=== PATIENT | female | born 1935 | race Caucasian/White ===

== ENCOUNTER 2019-01-26 18:28 | Emergency (ER) | payer MEDICARE, BC ==
[~2019-01-26] VITALS: Ht 170.2 cm; Wt 70.8 kg
[~2019-01-26 18:28] MED LIST: ARIP15TA8 PO; ATI0.5T PO; DOCU100C40 PO; DULO30CA52 PO; DULO60CA65 PO; ESTR1.25 PO; HYDR-3686 PO; LOSA50TA64 PO; TACR100O2 TOP; TAM50T PO
[2019-01-26 19:09] LABS: BASOPHILS # (AUTO) 0.1 X10'3 (0-0.2); BASOPHILS % (AUTO) 0.9 % (0-1); EOSINOPHILS # (AUTO) 0.2 X10'3 (0-0.9); HEMATOCRIT 44.5 % (35.0-45.0); HEMOGLOBIN 14.8 g/dl (12.0-16.0); LYMPHOCYTES # (AUTO) 1.2 X10'3 (1.1-4.8); LYMPHOCYTES % (AUTO) 15.1 % (21-51); MEAN CORPUSCULAR HEMOGLOBIN 30.6 PG (27.0-31.0); MEAN CORPUSCULAR HGB CONC 33.2 g/dL (33.0-36.5); MEAN CORPUSCULAR VOLUME 92.3 FL (78-98); MEAN PLATELET VOLUME 9.5 FL (7.4-10.4); MONOCYTES # (AUTO) 0.5 X10'3 (0-0.9); MONOCYTES % (AUTO) 6.4 % (2-12); NEUTROPHILS # (AUTO) 6.3 X10'3 (1.8-7.7); NEUTROPHILS % (AUTO) 75.6 % (42-75); PLATELET COUNT 213 X10'3 (140-440); RED BLOOD COUNT 4.82 X10'6 (4.20-5.60); RED CELL DISTRIBUTION WIDTH 13.4 % (11.5-14.5); WHITE BLOOD COUNT 8.3 X10'3 (4.5-11.0)
[2019-01-26 19:21] LABS: PARTIAL THROMBOPLASTIN TIME 28 SECONDS (22-32)
[2019-01-26 19:23] LABS: ALANINE AMINOTRANSFERASE 46 U/L (12-78); ALBUMIN 3.9 G/DL (3.4-5.0); ALKALINE PHOSPHATASE 82 IU/L (46-116); ANION GAP 12 (8-16); ASPARTATE AMINO TRANSFERASE 34 U/L (10-37); BILIRUBIN,TOTAL 0.7 MG/DL (0.1-1.0); BLOOD UREA NITROGEN 11 MG/DL (7-18); BUN/CREATININE RATIO 9.7 (6.6-38.0); CALCIUM 10.5 MG/DL (8.5-10.1); CHLORIDE 101 MMOL/L (99-107); CREATININE 1.13 MG/DL (0.40-0.90); GLUCOSE 152 MG/DL (70-104); SODIUM 135 MMOL/L (135-145); TOTAL CARBON DIOXIDE 22.5 MMOL/L (24-32); TOTAL PROTEIN 7.7 G/DL (6.4-8.2); eGFR 46 ML/MIN
--- NOTE | 2019-01-26 20:00 | NUR ---
The patient is an 83 year old female who was brought to [facility] for a mental health evaluation by her daughter from [place], [place] where she lives. She has a 35 year history of depression and was fairly stable on Nardil until approximately 3 years ago she developed a rash and was taken off of it. She has been struggling with depression ever since. She is currently being treated by Dr. Andrew colin and she has had recent medication changes where all of her medications were stopped and she was put on a lower dose of Nardil. She has been having suicidal thoughts and feelings of helplessness and hopelessness 2nd to the chronic depression and not being able helped with medications. Earlier today she went into her closed garage and started her car but apparently decided to come out and contacted her daughter who then brought her here. She reports she has no motivation or will. She reports her anxiety is high. She presented as depressed, flat affect, and soft monotone speech. Pyschotic symptoms are denied and none were apparent on the assessment.
[2019-01-26 20:17] LABS: CLARITY,URINE CLEAR (Clear); COLOR,URINE YELLOW (Yellow); GLUCOSE, URINE NEGATIVE (Neg); KETONES,URINE NEGATIVE (Neg); LEUKOCYTE ESTERASE ,URINE NEGATIVE (Neg); NITRITES, URINE NEGATIVE (Neg); OCCULT BLOOD,URINE NEGATIVE (Neg); PROTEIN,URINE NEGATIVE (Neg); UROBILINOGEN,URINE 0.2 E.U/dL (0.2-1.0)
[2019-01-26 20:23] LABS: UA COLLECTION TYPE CLN CATCH MIDSTREAM
[2019-01-26] MEDS ORDERED: LOSA25TA96 PO (21:15)
[2019-01-26] MEDS ORDERED: MELA3TAB PO (21:15)
[2019-01-26] MEDS ORDERED: PALI1.5T PO (21:15)
[2019-01-26] MEDS ORDERED: METO-539 PO (21:15)
[2019-01-26] MEDS ORDERED: PRAV80TA3 PO (21:19)
[2019-01-26] MEDS ORDERED: CHOL2000 PO (21:19)
[2019-01-26] MEDS ORDERED: PHEN15TA PO (21:19)
[2019-01-26] MEDS ORDERED: LORA-269 PO (21:19)
[2019-01-26] MEDS ORDERED: LORazepam 1 MG tablet PO PRN (21:50)
[2019-01-26] MEDS ORDERED: paliperidone 1.5mg ER tablet PO SCH (21:54)
[2019-01-26] MEDS ORDERED: PHENELZINE 15 MG PO SCH (21:54)
--- NOTE | 2019-01-26 22:00 | NUR ---
Family Contact: Daughter Jud Javed [phone], orgq=[phone]. Son Puneet [phone]
[2019-01-26] MEDS: PHENELZINE 15 MG PO SCH (22:33)
--- NOTE | 2019-01-26 23:16 | NUR ---
The patient currently appears to be resting on her bed
--- NOTE | 2019-01-27 01:05 | NUR ---
The patient appears to be asleep
--- NOTE | 2019-01-27 03:05 | NUR ---
THe patient appears to be asleep
[2019-01-27 05:58] VITALS: BP 144/59
[2019-01-27] MEDS ORDERED: vitamin D (cholecalciferol) 1,000 unit tablet PO SCH (08:00)
[2019-01-27] MEDS ORDERED: metoprolol succinate 25mg (24-HOUR) SR. Tablet PO SCH (08:00)
[2019-01-27] MEDS ORDERED: losartan 50mg tablet PO SCH (08:00)
[2019-01-27] MEDS ORDERED: atorvastatin 20mg tablet PO SCH (08:00)
[2019-01-27] MEDS: PHENELZINE 15 MG PO SCH (08:18)
[2019-01-27 10:43] LABS: URINE AMPHETAMINE SCREEN NEGATIVE (Neg); URINE BARBITUATE SCREEN NEGATIVE (Neg); URINE BENZODIAZEPINES SCREEN NEGATIVE (Neg); URINE CANNABINOID SCREEN NEGATIVE (Neg); URINE COCAINE SCREEN NEGATIVE (Neg); URINE METHADONE SCREEN NEGATIVE (Neg); URINE OPIATE SCREEN NEGATIVE (Neg); URINE PHENCYCLIDINE SCREEN NEGATIVE (Neg)
--- NOTE | 2019-01-27 11:08 | NUR ---
[facility]: Pt presents as depressed with recent suicidal gesture of getting in her car and starting the ignition with the intent to kill herself. She ended up getting out of the car and letting family know. She presents as hopeless and helpless, downcast expression, speech quiet. A&Ox4. On second week of nardil 30 mg, titrating up. Sees Dr. Morales outpatient. Accepted at [facility]
[2019-01-27] MEDS ORDERED: estradiol TD (14:38)
[2019-01-27] MEDS ORDERED: Melatonin 3mg tablet PO SCH (21:00)
== END 2019-01-27 13:41 ==
LOC: ER 18:29
DX: F32.9 Major depressive disorder, single episode, unspecified (principal); Z86.73 Personal history of transient ischemic attack (TIA), and cerebral infarction without residual deficits; Z88.6 Allergy status to analgesic agent; Z88.8 Allergy status to other drugs, medicaments and biological substances; Z91.011 Allergy to milk products; Z79.899 Other long term (current) drug therapy
CPT/HCPCS: 36415; 80053; 80305; 81003; 84484; 85025; 85610; 85730; 99285

== ENCOUNTER 2019-01-27 12:17 | Inpatient (IN) | payer MEDICARE, BC ==
[~2019-01-27] VITALS: Ht 170.2 cm; Wt 80.9 kg
[~2019-01-27 12:17] MED LIST changes: -ARIP15TA8 PO; -ATI0.5T PO; +CHOL2000 PO; -DOCU100C40 PO; -DULO30CA52 PO; -DULO60CA65 PO; -ESTR1.25 PO; -HYDR-3686 PO; +LORA-269 PO; +LOSA25TA96 PO; -LOSA50TA64 PO; +MELA3TAB64 PO; +METO-539 PO; +PALI1.5T PO; +PHEN15TA PO; +PRAV80TA3 PO; -TACR100O2 TOP; -TAM50T PO
[2019-01-27] MEDS ORDERED: mag hydrox/Alum hydrox/simeth 30ml oral suspension PO PRN (12:25)
[2019-01-27] MEDS ORDERED: NICOTINE POLACRILEX 2 MG LOZENGE MM PRN (12:25)
[2019-01-27] MEDS ORDERED: tuberculin, purif. prot. deriv. 5 units/0.1ml ID ONE (12:25)
--- NOTE | 2019-01-27 13:50 | NUR ---
Admission note: [facility] at 1340. Pt signed in voluntary. Pt complains of depression, feeling hopeless and tired of feeling this way. Pt did get in her car in the garage with intent to harm herself but changed her mind and called her daughter. Pts daughter convinced her to go to ER. Pts Psychiatrist is Dr Morales. Pt has history of UTI, HTN, Arrythmias, edema, CA, Lymphectomy, knee replacement, depression. Pt cooperative with admission process. Pt oriented to the unit.
[2019-01-27] MEDS ORDERED: estradiol TD (14:38)
[2019-01-27 15:06] VITALS: BP 98/64
[2019-01-27] MEDS: LORazepam 1 MG tablet PO PRN (16:13)
--- NOTE | 2019-01-27 17:06 | NUR ---
Nursing Admit Note Legal hold: voluntary Why are they here: Pt presents as depressed with recent suicidal gesture of getting in her car and starting the ignition with the intent to kill herself. She ended up getting out of the car and letting family know. She presents as hopeless and helpless, downcast expression, speech quiet. A&Ox4. On second week of nardil 30 mg, titrating up. Sees Dr. Morales outpatient. Assessment: What happened this shift: Patient brought up to the unit at 1340 by Jadyn Ferris via wheelchair. She was taken to to the shower where skin check was completed by this RN and Viviane WAGNER. Patient has a birthmark on her left lateral torso and toe seperator on right foot. Patient is cooperative with admit process. She reports that her depression has been stable for 34 years while taking Nardil. She states that she was taken off it around 2 years ago when she started itching. New medications have not been effective in treating her symptoms. All meds were stopped aobut 2weeks ago and she has been titrating back up on nardil. She states these last few weeks have been very difficult and that she doesnt want to do anything, she quit going to christianity and is very sad. She states she went to her car in the garage and started it. She changed her mind and she went inside and told her daughter. She gets settled into the unit and reports anxiety, requests Ativan. *MRSA swab completed* *PPD place in patients RFA on 01/27/19 at 1540. Lot #[id number], Ex:12/07/20.* S/I, H/I: S/I had a plan to of carbon monoxide poisoning. A/VH: denies ADL's: independant Sleep: states that she has not been sleeping well Group attendance: N/A Were meds taken: PRN Ativan Any med S/E: None reported, none observed Mental Status Exam Appearance: well groomed, green scrubs Eye contact: direct Behavior: friendly, cooperative, anxious Speech: soft tone, normal rate/rhythm Mood: depressed Affect: flat Thought process: linear Thought Content: wellness Cognition: A/Ox3 Insight: fair Judgment: Poor to fair, sought help Interventions PRN's used: Ativan Therapeutic interventions: 1:1 therapeutic assessment, maintained safe therapeutic milieu, provided active listening with positive reinforcement, provided medication administration/education/monitoring as needed; Q15 safety checks. Restraints/seclusion/emergency medication: N/A Justification of Continued Inpatient Treatment : Therapeutic support and medication management needed to provide stabilization, and prevent decompensation decreasing risk to patient for readmittance to inpatient unit.
[2019-01-27 19:00] VITALS: BP 107/60
[2019-01-27] MEDS: [UNRECOGNIZED DRUG - OTHER] PO SCH (20:00)
[2019-01-27] MEDS: paliperidone 1.5mg ER tablet PO SCH (20:56)
[2019-01-27] MEDS: vitamin D (cholecalciferol) 1,000 unit tablet PO SCH (20:56)
[2019-01-27] MEDS: Melatonin 3mg tablet PO SCH (20:57)
[2019-01-27] MEDS: LORazepam 0.5 MG tablet PO PRN (20:57)
[2019-01-27] MEDS ORDERED: MELATONIN 40 MG PO SCH (21:00)
[2019-01-27] MEDS ORDERED: Melatonin 3mg tablet PO SCH (21:00)
--- NOTE | 2019-01-28 02:45 | NUR ---
Nursing Progress Note Legal hold: Voluntary Report received from Cam KINGSLEY Why are they here: Pt presents as depressed with recent suicidal gesture of getting in her car and starting the ignition with the intent to kill herself. She ended up getting out of the car and letting family know. She presents as hopeless and helpless, downcast expression, speech quiet. A&Ox4. On second week of Nardil 30 mg, titrating up. Sees Dr. Morales outpatient. Assessment: What happened this shift: Patient presents as depressed she is isolative, staying in her bed all shift, not interacting with anyone. She speaks very softly and when asked if she has SI she states "Not anymore." She say's she has anxiety but has a difficult time identifying what causes her anxiety. Patient is very quiet and keeps conversations to a minimal. She is complaint with HS medications. S/I, H/I: Denies current SI thoughts A/VH: Denies ADL's: Independent Sleep: See sleep assessment Group attendance: N/A Were meds taken: Yes Any med S/E: None reported, none observed Mental Status Exam Appearance: Well groomed, green scrubs Eye contact: Direct Behavior: Cooperative, anxious Speech: Soft tone, normal rate/rhythm Mood: Depressed Affect: Flat Thought process: Linear Thought Content: Getting better/help Cognition: A/Ox3 Insight: Fair Judgment: Fair Interventions PRN's used: Ativan Therapeutic interventions: 1:1 therapeutic assessment, maintained safe therapeutic milieu, provided active listening with positive reinforcement, provided medication administration/education/monitoring as needed; Q15 safety checks. Restraints/seclusion/emergency medication: N/A Justification of Continued Inpatient Treatment : Therapeutic support and medication management needed to provide stabilization, and prevent decompensation decreasing risk to patient for readmittance to inpatient unit.
[2019-01-28 08:00] VITALS: BP 138/54
[2019-01-28] MEDS: pravastatin 40mg tablet PO SCH (08:13)
[2019-01-28] MEDS: vitamin D (cholecalciferol) 1,000 unit tablet PO SCH ×2 (08:13→21:36)
[2019-01-28] MEDS: metoprolol succinate 25mg (24-HOUR) SR. Tablet PO SCH (08:18)
[2019-01-28] MEDS: losartan 50mg tablet PO SCH (08:18)
[2019-01-28] MEDS: [UNRECOGNIZED DRUG - OTHER] PO SCH ×2 (08:52→20:00)
[2019-01-28 10:33] LABS: CHOL/HDL RATIO 2.1 (0.00-4.99); CHOLESTEROL 138 MG/DL (0-200); HDL CHOLESTEROL 66 MG/DL (35-60); LDL CHOLESTEROL 62 MG/DL (50-100); TRIGLYCERIDES 97 MG/DL (20-135)
[2019-01-28] MEDS: LORazepam 1 MG tablet PO PRN (10:58)
--- NOTE | 2019-01-28 16:22 | NUR ---
Nursing Progress Note Legal hold: Voluntary Report received from KRISTY Barkley Why are they here: Pt presents as depressed with recent suicidal gesture of getting in her car and starting the ignition with the intent to kill herself. She ended up getting out of the car and letting family know. She presents as hopeless and helpless, downcast expression, speech quiet. A&Ox4. On second week of Nardil 30 mg, titrating up. Sees Dr. Morales outpatient. Assessment: What happened this shift: The patient was asleep at change of shift. She is depressed with a constricted affect. Denies having suicidal thoughts at this time. Isolates to room today and appears fatigued. She did ask to take a shower this afternoon. She is medication compliant and cooperative. S/I, H/I: Denies current SI thoughts A/VH: Denies ADL's: Independent Sleep: Napped all day Group attendance: No Were meds taken: Yes Any med S/E: None reported, none observed Mental Status Exam Appearance: Well groomed, green scrubs Eye contact: Direct Behavior: Cooperative, anxious Speech: Soft tone, normal rate/rhythm Mood: Depressed Affect: Flat Thought process: Linear Thought Content: Getting better/help Cognition: A/Ox3 Insight: Fair Judgment: Fair Interventions PRN's used: Ativan Therapeutic interventions: 1:1 therapeutic assessment, maintained safe therapeutic milieu, provided active listening with positive reinforcement, provided medication administration/education/monitoring as needed; Q15 safety checks. Restraints/seclusion/emergency medication: N/A Justification of Continued Inpatient Treatment : Therapeutic support and medication management needed to provide stabilization, and prevent decompensation decreasing risk to patient for readmittance to inpatient unit.
[2019-01-28 20:00] VITALS: BP 127/64
[2019-01-28] MEDS: Melatonin 3mg tablet PO SCH (21:37)
[2019-01-28] MEDS: paliperidone 1.5mg ER tablet PO SCH (21:37)
[2019-01-28] MEDS: gentamicin 0.1% topical ointment 15gm TP SCH (21:39)
--- NOTE | 2019-01-29 04:05 | NUR ---
Nursing Progress Note Legal hold: Voluntary Report received from KRISTY Levy Why are they here: Pt presents as depressed with recent suicidal gesture of getting in her car and starting the ignition with the intent to kill herself. She ended up getting out of the car and letting family know. She presents as hopeless and helpless, downcast expression, speech quiet. A&Ox4. On second week of Nardil 30 mg, titrating up. Sees Dr. Morales outpatient. Assessment: What happened this shift: This patient is self isolating in her room. She exhibits a flat affect. The patient states "I just feel depressed, it feels hopeless. " I have had depression all my life. Patient denies feeling suicidal. She denies hallucinations. " I just want to get out of here. This patient has been medication compliant. " The patient is reassured that she is in a safe place. S/I, H/I: Denies current SI thoughts A/VH: Denies ADL's: Independent Sleep: Napped all day Group attendance: No Were meds taken: Yes Any med S/E: None reported, none observed Mental Status Exam Appearance: Well groomed, green scrubs Eye contact: Direct Behavior: Cooperative, anxious Speech: Soft tone, normal rate/rhythm Mood: Depressed Affect: Flat Thought process: Linear Thought Content: Getting better/help Cognition: A/Ox3 Insight: Fair Judgment: Fair Interventions PRN's used: Ativan Therapeutic interventions: 1:1 therapeutic assessment, maintained safe therapeutic milieu, provided active listening with positive reinforcement, provided medication administration/education/monitoring as needed; Q15 safety checks. Restraints/seclusion/emergency medication: N/A Justification of Continued Inpatient Treatment : Therapeutic support and medication management needed to provide stabilization, and prevent decompensation decreasing risk to patient for readmittance to inpatient unit.
[2019-01-29 08:00] VITALS: BP 150/58
[2019-01-29] MEDS: [UNRECOGNIZED DRUG - OTHER] PO SCH ×2 (08:11→20:16)
[2019-01-29] MEDS: pravastatin 40mg tablet PO SCH (08:13)
[2019-01-29] MEDS: vitamin D (cholecalciferol) 1,000 unit tablet PO SCH ×2 (08:13→20:15)
[2019-01-29] MEDS: gentamicin 0.1% topical ointment 15gm TP SCH ×2 (08:14→20:41)
[2019-01-29] MEDS: Estradiol 0.025mg/day patch (1 per week) TD SCH (08:15)
--- NOTE | 2019-01-29 08:28 | NUR ---
Pt has been placed on unlisted "low tyramine" diet per psych MD ordered by KRISTY. ALBER d/w RN to change to regular per MD approval given pt has no hx of zyvox and is has not been on zyvox since admit. Addendum: 01/29/19 at [address] Amended: Links added.
[2019-01-29] MEDS: losartan 50mg tablet PO SCH (08:32)
[2019-01-29] MEDS: metoprolol succinate 25mg (24-HOUR) SR. Tablet PO SCH (08:32)
[2019-01-29] MEDS: LORazepam 0.5 MG tablet PO PRN ×2 (11:16→20:27)
--- NOTE | 2019-01-29 16:41 | NUR ---
Nursing Progress Note Legal hold: Voluntary Report received from KRISTY Barkley Why are they here: Pt presents as depressed with recent suicidal gesture of getting in her car and starting the ignition with the intent to kill herself. She ended up getting out of the car and letting family know. She presents as hopeless and helpless, downcast expression, speech quiet. A&Ox4. On second week of Nardil 30 mg, titrating up. Sees Dr. Morales outpatient. Assessment: What happened this shift: Pt awake at start of shift. She was med compliant. Education provided. Up for groups and snacks. She does not engage in conversation. She is focused on medical problems and in denial of her current level of depression. S/I, H/I: Denies current SI thoughts A/VH: Denies ADL's: Independent Sleep: Napped Group attendance: Yeas Were meds taken: Yes Any med S/E: None reported, none observed Mental Status Exam Appearance: Well groomed, green scrubs Eye contact: Direct Behavior: Cooperative, anxious Speech: Soft tone, normal rate/rhythm Mood: Depressed Affect: Flat Thought process: Linear Thought Content: groups today Cognition: A/Ox3 Insight: Fair Judgment: Fair Interventions PRN's used: Ativan Therapeutic interventions: 1:1 therapeutic assessment, maintained safe therapeutic milieu, provided active listening with positive reinforcement, provided medication administration/education/monitoring as needed; Q15 safety checks. Restraints/seclusion/emergency medication: N/A Justification of Continued Inpatient Treatment : Therapeutic support and medication management needed to provide stabilization, and prevent decompensation decreasing risk to patient for readmittance to inpatient unit.
[2019-01-29] MEDS ORDERED: LORazepam 1 MG tablet PO PRN (18:40)
[2019-01-29] MEDS ORDERED: ESTRADIOL 0.025 MG TD SCH (18:40)
[2019-01-29 19:45] VITALS: BP 115/49
[2019-01-29] MEDS ORDERED: non-formulary drug (Cholecalciferol (Vitamin D3) (Vitamin D) 1 CAP) PO SCH (20:00)
[2019-01-29] MEDS ORDERED: PHENELZINE 15 MG PO SCH (20:00)
[2019-01-29] MEDS: Melatonin 3mg tablet PO SCH (20:16)
[2019-01-29] MEDS: paliperidone 1.5mg ER tablet PO SCH (20:16)
[2019-01-29] MEDS ORDERED: paliperidone 1.5mg ER tablet PO SCH (21:00)
[2019-01-29] MEDS ORDERED: Melatonin 3mg tablet PO SCH (21:00)
--- NOTE | 2019-01-30 02:26 | NUR ---
Nursing Progress Note Legal hold: Voluntary Report received from KRISTY Levy Why are they here: Pt presents as depressed with recent suicidal gesture of getting in her car and starting the ignition with the intent to kill herself. She ended up getting out of the car and letting family know. She presents as hopeless and helpless, downcast expression, speech quiet. A&Ox4. On second week of Nardil 30 mg, titrating up. Sees Dr. Morales outpatient. Assessment: What happened this shift: Ambulating on unit at start of shift. Gait steady but shuffling. 'ent to bed early lying awake declined to come for snack. Pt admitted to S/I, H/I: Denies current SI thoughts A/VH: Denies ADL's: Independent Sleep: Napped Group attendance: Yeas Were meds taken: Yes Any med S/E: None reported, none observed Mental Status Exam Appearance: Well groomed, green scrubs Eye contact: Direct Behavior: Cooperative, anxious Speech: Soft tone, normal rate/rhythm Mood: Depressed Affect: Flat Thought process: Linear Thought Content: groups today Cognition: A/Ox3 Insight: Fair Judgment: Fair Interventions Addendum: 01/30/19 at 0239 by Isabelle Acuña RN PREVIOUS ASSESSMENT SAVED BEFORE COMPLETED Assessment: What happened this shift: Ambulating on unit at start of shift. Gait steady but shuffling. went to bed early lying awake declined to come for snack. 1:1 Pt admitted to depression and having a plan for suicide. She plans sit in car running in garage. S/I, H/I: SI with plan A/VH: Denies ADL's: Independent Sleep: Napped Group attendance: NA Were meds taken: Yes Any med S/E: None reported, none observed Mental Status Exam Appearance: Well groomed, green scrubs Eye contact: Direct Behavior: Cooperative, anxious Speech: Soft tone, pauses before answering Mood: Depressed Affect: Flat Thought process: Linear Thought Content: varies Cognition: A/Ox3 Insight: Fair Judgment: Fair Interventions PRN's used: none Therapeutic interventions: 1:1 therapeutic assessment, maintained safe therapeutic milieu, provided active listening with positive reinforcement, provided medication administration/education/monitoring as needed; Q15 safety checks. Restraints/seclusion/emergency medication: N/A Justification of Continued Inpatient Treatment : Pt is depressed with SI with a plan. Therapeutic support and medication management needed to provide stabilization, and prevent decompensation decreasing risk to patient for readmittance to inpatient unit.
[2019-01-30] MEDS: LORazepam 1 MG tablet PO PRN ×2 (03:42→16:13)
[2019-01-30 08:00] VITALS: BP 137/60
[2019-01-30] MEDS: [UNRECOGNIZED DRUG - OTHER] PO SCH ×3 (08:00→20:10)
[2019-01-30] MEDS ORDERED: losartan 25mg tablet PO SCH (08:00)
[2019-01-30] MEDS ORDERED: non-formulary drug (Pravastatin Sodium 1 TAB) PO SCH (08:00)
[2019-01-30] MEDS: metoprolol succinate 25mg (24-HOUR) SR. Tablet PO SCH (08:00)
[2019-01-30] MEDS ORDERED: TYPE IN GENERIC & BRAND NAME OF PATIENT MED STRENGTH & FORM PO SCH (08:00)
[2019-01-30] MEDS ORDERED: metoprolol succinate 25mg (24-HOUR) SR. Tablet PO SCH (08:00)
[2019-01-30] MEDS: pravastatin 40mg tablet PO SCH (08:56)
[2019-01-30] MEDS: vitamin D (cholecalciferol) 1,000 unit tablet PO SCH ×2 (08:56→20:09)
[2019-01-30] MEDS: losartan 50mg tablet PO SCH (08:58)
[2019-01-30] MEDS: gentamicin 0.1% topical ointment 15gm TP SCH ×2 (08:59→20:09)
--- NOTE | 2019-01-30 17:31 | NUR ---
Nursing Progress Note Legal hold: Voluntary Report received from Juliocesar KINGSLEY, with use of SBAR Why are they here: Pt presents as depressed with recent suicidal gesture of getting in her car and starting the ignition with the intent to kill herself. She ended up getting out of the car and letting family know. She presents as hopeless and helpless, downcast expression, speech quiet. A&Ox4. On second week of Nardil 30 mg, titrating up. Sees Dr. Morales outpatient. Assessment: What happened this shift: Elderly well kept woman sleeping flat on her back with a blanket from home covering her. Pt required multiple times to of prompts to wake her to get her up for breakfast. Assistance provided at the table with opening food packages. Diastolic hypotension in the 40's this morning; AM Metoprolol held. Current BP 131/64 HR 654. Pt encouraged to drink one class of water with each meal and to try and walk in the hallways for some exercise. Pt cooperative with both suggestions. S/I, H/I: Denies current SI thoughts A/VH: Denies ADL's: Independent Sleep: Napped Group attendance: Yes Were Meds taken: Yes Any med S/E: None reported, none observed Mental Status Exam Appearance: Well groomed, green scrubs Eye contact: Direct Behavior: Cooperative, anxious Speech: Soft tone, normal rate/rhythm Mood: Depressed Affect: Flat Thought process: Linear Thought Content: groups today Cognition: A/Ox3 Insight: Fair Judgment: Fair Interventions PRN's used: Ativan Therapeutic interventions: 1:1 therapeutic assessment, provided therapeutic communication and active listening, encouraged to go to groups, encouraged to drink water, walk in the hallways to improve diastolic hypotension, provided medication administration/education/monitoring as needed; Q15 safety checks. Restraints/seclusion/emergency medication: N/A Justification of Continued Inpatient Treatment : Therapeutic support and medication management needed to provide stabilization, and prevent decompensation decreasing risk to patient for readmittance to inpatient unit.
[2019-01-30 19:29] VITALS: BP 124/67
[2019-01-30] MEDS: paliperidone 1.5mg ER tablet PO SCH (20:09)
[2019-01-30] MEDS: LORazepam 0.5 MG tablet PO PRN (20:09)
[2019-01-30] MEDS: Melatonin 3mg tablet PO SCH (20:09)
--- NOTE | 2019-01-31 02:18 | NUR ---
RN PROGRESS NOTE: LEGAL HOLD: VOL/Long hx depression THIS SHIFT: Client was in bed, lying on her back, with eye's closed when this RN entered her room. Client appears listless. Client stated, "I have a feeling of nothingness. There's nothing." Client does not have the desire to go to group. She confirmed that she had had ECT "years ago" but did not say if it helped her depression. Client does want to continue Nardil as she feels it helps. Nardil is currently being titrated. Client was cooperative and compliant with meds. She stayed in bed during the shift. MSE: Client wears appropriate clothing and has good personal hygiene. Her mood and affect are deeply depressed. Thought is linear and connected. She is med compliant. At this time the clients depression makes it difficult for her to function. She has denied SI, but reports feelings of despair and hopelessness. Client may be at risk for another suicide gesture or attempt.
[2019-01-31 07:36] VITALS: BP 139/53
[2019-01-31] MEDS: metoprolol succinate 25mg (24-HOUR) SR. Tablet PO SCH (08:34)
[2019-01-31] MEDS: vitamin D (cholecalciferol) 1,000 unit tablet PO SCH ×2 (08:34→20:11)
[2019-01-31] MEDS: losartan 50mg tablet PO SCH (08:34)
[2019-01-31] MEDS: LORazepam 0.5 MG tablet PO PRN ×2 (08:35→13:24)
[2019-01-31] MEDS: pravastatin 40mg tablet PO SCH (08:35)
[2019-01-31] MEDS: [UNRECOGNIZED DRUG - OTHER] PO SCH ×3 (08:35→20:11)
[2019-01-31] MEDS: gentamicin 0.1% topical ointment 15gm TP SCH ×2 (08:37→20:10)
[2019-01-31] MEDS: magnesium hydroxide 30ml (MOM) UD suspension PO PRN (16:03)
--- NOTE | 2019-01-31 17:14 | NUR ---
Nursing Progress Note Legal hold: Voluntary Report received from KRISTY Mehta Why are they here: Pt presents as depressed with recent suicidal gesture of getting in her car and starting the ignition with the intent to kill herself. She ended up getting out of the car and letting family know. She presents as hopeless and helpless, downcast expression, speech quiet. A&Ox4. On second week of Nardil 30 mg, titrating up. Sees Dr. Morales outpatient. Assessment: What happened this shift: Asleep upon change of shift observation. Awakened for vital signs and to inform breakfast was here. Initially patient did not want to eat or get out of bed. Encouraged to do so times breakfast and lunch. Ate well once she was assisted to the dining room. Immediately returned to her room. Presents with symptoms of vegetative depression. States "I don't know what it's going to take to get me better." indicating she wants to live but presently lives with a foreboding of . She does not engage in conversation. Appears preoccupied with her sadness. S/I, H/I: Denies current SI thoughts A/VH: Denies ADL's: Independent Sleep: Napped Group attendance: No Were meds taken: Yes, as scheduled Any med S/E: None reported, none observed Mental Status Exam Appearance: Well groomed, green scrubs Eye contact: Direct Behavior: Cooperative, anxious Speech: Soft tone, normal rate/rhythm Mood: Depressed Affect: Flat Thought process: Linear Thought Content: groups today Cognition: A/Ox3 Insight: Fair Judgment: Fair Interventions PRN's used: Ativan 1 mg. X 1 and Milk of Magnesia X 1 Therapeutic interventions: 1:1 therapeutic assessment, maintained safe therapeutic milieu, provided active listening with positive reinforcement, provided medication administration/education/monitoring as needed; Q15 safety checks. Restraints/seclusion/emergency medication: N/A Justification of Continued Inpatient Treatment : Therapeutic support and medication management needed to provide stabilization, and prevent decompensation decreasing risk to patient for readmittance to inpatient unit.
[2019-01-31 20:00] VITALS: BP 107/74
[2019-01-31] MEDS: paliperidone 1.5mg ER tablet PO SCH (20:11)
[2019-01-31] MEDS: Melatonin 3mg tablet PO SCH (20:11)
[2019-01-31] MEDS: LORazepam 1 MG tablet PO PRN (21:08)
--- NOTE | 2019-02-01 01:11 | NUR ---
Nursing Progress Note Legal hold: Voluntary Report received from KRISTY Mehta Why are they here: Pt presents as depressed with recent suicidal gesture of getting in her car and starting the ignition with the intent to kill herself. She ended up getting out of the car and letting family know. She presents as hopeless and helpless, downcast expression, speech quiet. A&Ox4. On second week of Nardil 30 mg, titrating up. Sees Dr. Morales outpatient. Assessment: What happened this shift: pt was sleeping in bed at change of shift, 1:1 assessment completed at bedside. pt states that she hasnt felt like doing anything today and is very depressed states "I dont have any inner strength, or inner determination to do anything." pt denies s/i but then described plan for s/i of starting her car and letting in run in the garage. Pt states "I slit my wrist and I told my doctor about it but that was a long time ago. Pt states appetite is "not very good, I dont really want to eat but I eat because I have to." Pt is hopeful that medication changes will help her. States she has been attending groups Reports difficulty falling asleep. S/I, H/I: Denies current SI thoughts but has plan to leave car running in the garage while shes in the car A/VH: Denies ADL's: Independent Sleep: Napped Group attendance: no evening groups. Were meds taken: Yes Any med S/E: None reported, none observed Mental Status Exam Appearance: Well groomed, green scrubs Eye contact: Direct Behavior: Cooperative, anxious Speech: Soft tone, normal rate/rhythm Mood: Depressed Affect: Flat Thought process: Linear Thought Content: groups today Cognition: A/Ox3 Insight: Fair Judgment: Fair Interventions PRN's used: Ativan Therapeutic interventions: 1:1 therapeutic assessment, maintained safe therapeutic milieu, provided active listening with positive reinforcement, provided medication administration/education/monitoring as needed; Q15 safety checks. Restraints/seclusion/emergency medication: N/A Justification of Continued Inpatient Treatment : Therapeutic support and medication management needed to provide stabilization, and prevent decompensation decreasing risk to patient for readmittance to inpatient unit.
[2019-02-01 07:19] VITALS: BP 126/58
[2019-02-01] MEDS: pravastatin 40mg tablet PO SCH (08:41)
[2019-02-01] MEDS: vitamin D (cholecalciferol) 1,000 unit tablet PO SCH ×2 (08:41→20:58)
[2019-02-01] MEDS: [UNRECOGNIZED DRUG - OTHER] PO SCH ×3 (08:42→21:00)
[2019-02-01] MEDS: losartan 50mg tablet PO SCH (08:42)
[2019-02-01] MEDS: metoprolol succinate 25mg (24-HOUR) SR. Tablet PO SCH (08:42)
[2019-02-01] MEDS: gentamicin 0.1% topical ointment 15gm TP SCH ×2 (08:44→20:00)
[2019-02-01] MEDS: LORazepam 1 MG tablet PO PRN (12:12)
--- NOTE | 2019-02-01 15:15 | NUR ---
Initial: Pt admit to [facility] for depression. Pt currently on a "low tyramine" diet. Per MD notes pt to titrate the Phenelzine up to 45 mg daily and later 60 mg daily; a low tyramine diet is indicated during use of this medication, however noted that Phenelzine is not listed on med list. Recommend diet advancement to regular as our current regular diet plan is not high in tyramine. Pt documented with fluctuating PO intake averaging 75-100% meeting nutrient needs. LBM 01/31. No edema or wounds. No nutrition diagnosis at this time. Will continue to follow. Recommendations: 1) Advance to regular diet 2) Routine bowel care 3) Wt per rx Addendum: 02/01/19 at [address] Amended: Links added.
--- NOTE | 2019-02-01 18:03 | NUR ---
Nursing Progress Note Legal hold: Voluntary Report received from KRISTY Mehta Why are they here: Pt presents as depressed with recent suicidal gesture of getting in her car and starting the ignition with the intent to kill herself. She ended up getting out of the car and letting family know. She presents as hopeless and helpless, downcast expression, speech quiet. A&Ox4. On second week of Nardil 30 mg, titrating up. Sees Dr. Morales outpatient. Assessment: What happened this shift: pt was sleeping in bed at change of shift. Pt reports feelings of depression today and appearance is congruent with her mood. Pt denies SI but does state, I don;t want to be here, I dont want to be anywhere. Also reports feelings of emptiness. Pt is hopeful that medication changes will help her. States she has been attending groups, today she left group abruptly after feeling overwhelmed with emotion. Pt reports needing PRN Ativan and one was administered. Pt reports having continuous negative feelings about herself and also reports she feels guilty about being unfaithful to my many years ago. She went on to report that she only emotionally cheated, we didnt have sex. Reports her was aware and forgave her and she believes God has forgiven me, I just havent been able to forgive myself. Reports she will try and attend afternoon group. S/I, H/I: Denies current SI but I dont want to be here, I dont want to be anywhere. A/VH: Denies ADL's: Independent Sleep: 7.25 NOC Group attendance: morning-briefly before walking out upset Were meds taken: Yes Any med S/E: None reported, none observed Mental Status Exam Appearance: Well groomed, green scrubs Eye contact: Direct Behavior: Cooperative, anxious after group Speech: Soft tone, normal rate/rhythm Mood: Depressed Affect: Flat Thought process: Linear Thought Content: focused on her low self worth and history with Cognition: A/Ox4 Insight: Fair Judgment: Fair Interventions PRN's used: Ativan X1 Therapeutic interventions: 1:1 therapeutic assessment, maintained safe therapeutic milieu, provided active listening with positive reinforcement, provided medication administration/education/monitoring as needed; Q15 safety checks. Restraints/seclusion/emergency medication: N/A Justification of Continued Inpatient Treatment : Therapeutic support and medication management needed to provide stabilization, and prevent decompensation decreasing risk to patient for readmittance to inpatient unit.
[2019-02-01 20:00] VITALS: BP 142/60
[2019-02-01] MEDS: Melatonin 3mg tablet PO SCH (20:59)
[2019-02-01] MEDS: paliperidone 1.5mg ER tablet PO SCH (20:59)
[2019-02-01] MEDS: LORazepam 0.5 MG tablet PO PRN (21:11)
--- NOTE | 2019-02-01 23:51 | NUR ---
Nursing Progress Note Legal hold: Voluntary Report received from KRISTY Gandara Why are they here: Pt presents as depressed with recent suicidal gesture of getting in her car and starting the ignition with the intent to kill herself. She ended up getting out of the car and letting family know. She presents as hopeless and helpless, downcast expression, speech quiet. A&Ox4. On second week of Nardil 30 mg, titrating up. Sees Dr. Morales outpatient. Assessment: What happened this shift: Patient is in bed at change of shift. She is isolative and does not leave her room or bed this evening except to use the restroom. She agrees to a 1:1 assessment at her bedside. She denies SI/HI, AH/VH. She rates her depression as a 10/10, and says she is still experiencing anxiety. Patient is not very talkative this evening she has hearing aides but would not put them in for her assessment. She speaks loudly and repeatedly stated she was having a difficult time hearing. She did talk to her daughter this evening which seemed to have brighten her mood. Patient is complaint with her HS medications. S/I, H/I: Denies current SI A/VH: Denies ADL's: Independent Sleep: See sleep assessment Group attendance: No groups this evening Were meds taken: Yes Any med S/E: None reported, none observed Mental Status Exam Appearance: Well groomed, green scrubs Eye contact: Direct Behavior: Cooperative, anxious Speech: Soft tone, loud while not wearing hearing aides, normal rate/rhythm Mood: Depressed Affect: Flat Thought process: Linear Thought Content: Focused on continually feeling depressed Cognition: A/Ox4 Insight: Fair Judgment: Fair Interventions PRN's used: Ativan X1 Therapeutic interventions: 1:1 therapeutic assessment, maintained safe therapeutic milieu, provided active listening with positive reinforcement, provided medication administration/education/monitoring as needed; Q15 safety checks. Restraints/seclusion/emergency medication: N/A Justification of Continued Inpatient Treatment : Therapeutic support and medication management needed to provide stabilization, and prevent decompensation decreasing risk to patient for readmittance to inpatient unit.
[2019-02-02 07:44] VITALS: BP 130/88
[2019-02-02 07:47] VITALS: BP 131/58
[2019-02-02] MEDS: vitamin D (cholecalciferol) 1,000 unit tablet PO SCH ×2 (08:45→20:46)
[2019-02-02] MEDS: metoprolol succinate 25mg (24-HOUR) SR. Tablet PO SCH (08:45)
[2019-02-02] MEDS: losartan 50mg tablet PO SCH (08:45)
[2019-02-02] MEDS: pravastatin 40mg tablet PO SCH (08:45)
--- NOTE | 2019-02-02 08:45 | NUR ---
Nursing 1:1 Documentation Patient encouraged out of bed this AM to attend breakfast. After eating well for this meal, patient came to staff for morning medications. Sat in a chair in the community room, slouched in her chair, and while waiting for her meds to be prepared, heard to make sounds out of her mouth similar to growling. When asked about the sounds she was making patient responded "I feel as if I'm going to explode." Patient unable to elaborate further, staring at staff but offering no comment. When asked what she was feeling at that moment pt replied "I feel empty." Significant tremors noted in her hands and feet, with additional head tremor, not as pronounced. Patient asked for and given Ativan 1 mg. at this time. 1100 Patient out of bed and asking to shower. Declined to attend group. Assisted with a shower and shampoo without event.
[2019-02-02] MEDS: [UNRECOGNIZED DRUG - OTHER] PO SCH ×3 (08:46→20:43)
[2019-02-02] MEDS: gentamicin 0.1% topical ointment 15gm TP SCH ×2 (08:46→20:47)
[2019-02-02] MEDS: LORazepam 1 MG tablet PO PRN (08:52)
--- NOTE | 2019-02-02 17:06 | NUR ---
Legal hold: Voluntary Report received from KRISTY Mehta Why are they here: Pt presents as depressed with recent suicidal gesture of getting in her car and starting the ignition with the intent to kill herself. She ended up getting out of the car and letting family know. She presents as hopeless and helpless, downcast expression, speech quiet. A&Ox4. On second week of Nardil 30 mg, titrating up. Sees Dr. Morales outpatient. Assessment: What happened this shift: Please see note written earlier this shift. Patient spent the greater part of the shift in bed, stating "I just want to sleep. I don't know what else to do with myself." Unable to process he rlife events at this time. S/I, H/I: Denies current SI A/VH: Denies ADL's: Independent Sleep: See sleep assessment Group attendance: No groups this evening Were meds taken: Yes Any med S/E: None reported, none observed Mental Status Exam Appearance: Well groomed, green scrubs Eye contact: Direct Behavior: Cooperative, anxious Speech: Soft tone, loud while not wearing hearing aides, normal rate/rhythm Mood: Depressed Affect: Flat Thought process: Linear Thought Content: Focused on continually feeling depressed Cognition: A/Ox4 Insight: Fair Judgment: Fair Interventions PRN's used: Ativan X1 Therapeutic interventions: 1:1 therapeutic assessment, maintained safe therapeutic milieu, provided active listening with positive reinforcement, provided medication administration/education/monitoring as needed; Q15 safety checks. Restraints/seclusion/emergency medication: N/A Justification of Continued Inpatient Treatment : Therapeutic support and medication management needed to provide stabilization, and prevent decompensation decreasing risk to patient for readmittance to inpatient unit.
[2019-02-02 19:56] VITALS: BP 131/80
[2019-02-02] MEDS: paliperidone 1.5mg ER tablet PO SCH (20:44)
[2019-02-02] MEDS: Melatonin 3mg tablet PO SCH (20:44)
[2019-02-02] MEDS: LORazepam 0.5 MG tablet PO PRN (20:45)
--- NOTE | 2019-02-02 23:33 | NUR ---
Nursing Progress Note Legal hold: Voluntary Report received from KRISTY Bosch Why are they here: Pt presents as depressed with recent suicidal gesture of getting in her car and starting the ignition with the intent to kill herself. She ended up getting out of the car and letting family know. She presents as hopeless and helpless, downcast expression, speech quiet. A&Ox4. On second week of Nardil 30 mg, titrating up. Sees Dr. Morales outpatient. Assessment: What happened this shift: Patient is in bed at change of shift. She is isolative and does not leave her room or bed this evening. She sleeps most of the shift. When awoken for a 1:1 assessment patient reports that it was "not a good day." She say's she is "hot", and "I don't feel good." Temperature is taken and is 97.2, it is noted that patient has not drank any of her water today. She is encouraged to drink fluids at this time, to remain hydrated as this could be why she is not feeling well. Patient reports that she finds no enjoyment in anything. She say's "I eat, but I don't enjoy it." She reports her depression is a 10/10 and has not improved. Patient is compliant with HS medications. S/I, H/I: Denies current SI A/VH: Denies ADL's: Independent Sleep: See sleep assessment Group attendance: No groups this evening Were meds taken: Yes Any med S/E: None reported, none observed Mental Status Exam Appearance: Disheveled, hair unkempt Eye contact: Direct Behavior: Cooperative, anxious Speech: Soft tone, loud while not wearing hearing aides, normal rate/rhythm Mood: Depressed Affect: Flat Thought process: Linear Thought Content: Focused on continually feeling depressed Cognition: A/Ox4 Insight: Fair Judgment: Fair Interventions PRN's used: Ativan X1 Therapeutic interventions: 1:1 therapeutic assessment, maintained safe therapeutic milieu, provided active listening with positive reinforcement, provided medication administration/education/monitoring as needed; Q15 safety checks. Restraints/seclusion/emergency medication: N/A Justification of Continued Inpatient Treatment : Therapeutic support and medication management needed to provide stabilization, and prevent decompensation decreasing risk to patient for readmittance to inpatient unit.
[2019-02-03] MEDS: metoprolol succinate 25mg (24-HOUR) SR. Tablet PO SCH (07:45)
[2019-02-03] MEDS: losartan 50mg tablet PO SCH (07:45)
[2019-02-03] MEDS: vitamin D (cholecalciferol) 1,000 unit tablet PO SCH ×2 (07:45→21:10)
[2019-02-03] MEDS: [UNRECOGNIZED DRUG - OTHER] PO SCH ×3 (07:46→21:10)
[2019-02-03] MEDS: gentamicin 0.1% topical ointment 15gm TP SCH ×2 (07:46→21:10)
[2019-02-03] MEDS: pravastatin 40mg tablet PO SCH (07:49)
[2019-02-03 08:00] VITALS: BP 118/52
[2019-02-03] MEDS: LORazepam 1 MG tablet PO PRN ×2 (10:00→17:15)
--- NOTE | 2019-02-03 17:39 | NUR ---
Nursing Progress Note Legal hold: Voluntary Report received from Araseli Chu RN Why are they here: Pt presents as depressed with recent suicidal gesture of getting in her car and starting the ignition with the intent to kill herself. She ended up getting out of the car and letting family know. She presents as hopeless and helpless, downcast expression, speech quiet. A&Ox4. On second week of Nardil 30 mg, titrating up. Sees Dr. Morales outpatient. Assessment: What happened this shift: Patient is in bed at change of shift. She is isolative and does not leave her room or bed other than to eat. She sleeps most of the shift. She reports not feeling well today. She has a slow reaction time to questions asked. Patient continues to report that she finds no enjoyment in anything. She reports her depression is a 10/10 and has not improved. Patient is compliant with all AM medications. Dr. Longoria plans on increasing her Nardil. RN assisted pt with getting new batteries in her hearing aides. In late afternoon pt was heard from down the hallway wailing on her bed stating, "Im falling apart." Patient was alone and unprovoked. Pt was amendable to taking Ativan. RN also educated her on breathing exercises as well as body awareness exercises. She also calmed down when offered a cup of chamomile tea. S/I, H/I: Denies current SI A/VH: Denies ADL's: Independent Sleep: See sleep assessment Group attendance: No Were meds taken: Yes Any med S/E: Some fine leg tremors observed Mental Status Exam Appearance: Hair unkempt Eye contact: Direct Behavior: Cooperative, anxious Speech: Soft tone, slow response time Mood: Depressed Affect: Flat Thought process: Linear Thought Content: Focused on continually feeling depressed Cognition: A/Ox4 Insight: Fair Judgment: Fair Interventions PRN's used: Ativan X2 Therapeutic interventions: 1:1 therapeutic assessment, maintained safe therapeutic milieu, provided active listening with positive reinforcement, provided medication administration/education/monitoring as needed; Q15 safety checks. Restraints/seclusion/emergency medication: N/A Justification of Continued Inpatient Treatment : Therapeutic support and medication management needed to provide stabilization, and prevent decompensation decreasing risk to patient for readmittance to inpatient unit.
[2019-02-03 20:00] VITALS: BP 120/59
[2019-02-03] MEDS: Melatonin 3mg tablet PO SCH (21:10)
[2019-02-03] MEDS: paliperidone 1.5mg ER tablet PO SCH (21:10)
--- NOTE | 2019-02-04 00:16 | NUR ---
Nursing Progress Note: Legal hold: Voluntary Client on voluntary DTS Report received from nurse with use of SBAR: KRISTY Bosch Why are they here: Pt presents as depressed with recent suicidal gesture of getting in her car and starting the ignition with the intent to kill herself. She ended up getting out of the car and letting family know and they then brought her to the ER. She presents as hopeless and helpless, downcast expression, speech quiet, and has hx of depression with two previous suicide attempts. Pt. is and lives alone, however receives support from her three children. She is a patient of Dr. Reed. Assessment What has happened this shift: Pt. presents as isolative and fatigued and remains in bed throughout the shift. This report writer awoke pt. to complete 1:1 at bedside, she is cooperative, however guarded and withdrawn, affect is flat, and speech is soft, inaudible at times with a delay in response time. Pt. is A&O X3, not to place, reports she is at [facility], however is able to be successfully reoriented by this report writer. She continues to endorse depression with passive S/I, no current plan at this time, and no s/s of self-harm behaviors this shift. Pt. reports she does not attend groups, when questioned by this report writer regarding why, she states, "I just don't want to be here." Pt. requests PRN Ativan at reporting that is helps her sleep, however denies anxiety at this time. This report writer administered scheduled Melatonin and educated pt. that Ativan is used for anxiety, but to notify staff if she is unable to sleep, pt. voiced understanding. Will continue to monitor. S/I, H/I: Passive S/I, no current plan at this time A/VH: N/A Sleep: Pt. presents as fatigued, sleeping throughout the shift ADL's: Pt. remains in bed and requires prompting and direction from staff in order to complete ADLs Group attendance: Pt. reports she does not attend groups, when questioned by this report writer regarding why, she states, "I just don't want to be here." Were meds taken: Yes Any med S/E: None Mental Status Exam Appearance: Neat and appropriately dressed Eye contact: Poor to fair Behavior: Cooperative, however guarded and withdrawn, Speech: Speech is soft, inaudible at times with a delay in response time. Mood: Depressed Affect: Flat Thought process: Poverty of thought and blocking Thought Content: Ongoing preoccupation with depressive thoughts and hopelessness Cognition: Pt. is A&O X3, not to place, reports she is at [facility], however is able to be successfully reoriented by this report writer. Insight: Poor Judgment: Poor Interventions PRN's used: None Therapeutic interventions: Attempted to establish rapport, ensured contract for safety, maintained a safe and supportive environment, provided reorientation to reality as needed, monitored behaviors and need for intervention, and maintained Q 15 min safety checks. Restraints/seclusion/emergency medication: N/A Justification of Continued Inpatient Treatment: Pt. requires interruption of current crisis, medication adjustments, and a safe and supportive environment.
[2019-02-04] MEDS: LORazepam 0.5 MG tablet PO PRN (03:58)
[2019-02-04 07:31] VITALS: BP 128/54
[2019-02-04] MEDS: pravastatin 40mg tablet PO SCH (07:56)
[2019-02-04] MEDS: losartan 50mg tablet PO SCH (07:56)
[2019-02-04] MEDS: vitamin D (cholecalciferol) 1,000 unit tablet PO SCH ×2 (07:56→20:46)
[2019-02-04] MEDS: [UNRECOGNIZED DRUG - OTHER] PO SCH ×3 (07:57→17:58)
[2019-02-04] MEDS: metoprolol succinate 25mg (24-HOUR) SR. Tablet PO SCH (07:57)
[2019-02-04] MEDS: gentamicin 0.1% topical ointment 15gm TP SCH ×2 (08:00→20:47)
[2019-02-04] MEDS: LORazepam 1 MG tablet PO PRN (12:20)
--- NOTE | 2019-02-04 13:32 | NUR ---
Nursing Progress Note Legal hold: Voluntary Report received from Araseli Chu RN Why are they here: Pt presents as depressed with recent suicidal gesture of getting in her car and starting the ignition with the intent to kill herself. She ended up getting out of the car and letting family know. She presents as hopeless and helpless, downcast expression, speech quiet. A&Ox4. On second week of Nardil 30 mg, titrating up. Sees Dr. Morales outpatient. Assessment: What happened this shift: Client laying in bed until medication and breakfast time. Pt. is medication compliant, attends all meals. Patient initially declined 1:1, but then apologized for being rude. Pt. states that she feels hopeless, and that she is not improving. Pt. asked for Ativan and was visibly shaking from anxiety. She naps most of the day, and when she does say a few words she will just stop talking and lay back down. S/I, H/I: Denies current SI A/VH: Denies ADL's: Independent Sleep: 7.5 hrs. at night, napped most of day. Group attendance: No Were meds taken: Yes Any med S/E: Some fine leg tremors observed Mental Status Exam Appearance: Hair unkempt Eye contact: Direct Behavior: Cooperative, anxious Speech: Soft tone, slow response time Mood: Depressed Affect: Flat Thought process: Linear Thought Content: Focused on hopelessness and depresion. Cognition: A/Ox4 Insight: Fair Judgment: Fair Interventions PRN's used: Ativan Therapeutic interventions: 1:1 therapeutic assessment, maintained safe therapeutic milieu, provided active listening with positive reinforcement, provided medication administration/education/monitoring as needed; Q15 safety checks. Restraints/seclusion/emergency medication: N/A Justification of Continued Inpatient Treatment : Therapeutic support and medication management needed to provide stabilization, and prevent decompensation decreasing risk to patient for readmittance to inpatient unit.
[2019-02-04] MEDS: [UNRECOGNIZED DRUG - OTHER] PO SCH ×2 (17:59→21:00)
[2019-02-04 20:00] VITALS: BP 120/70
[2019-02-04] MEDS: paliperidone 1.5mg ER tablet PO SCH (20:46)
[2019-02-04] MEDS: Melatonin 3mg tablet PO SCH (20:46)
--- NOTE | 2019-02-05 01:26 | NUR ---
Nursing Progress Note: Legal hold: Voluntary Client on voluntary DTS Report received from nurse with use of SBAR: KRISTY Bosch Why are they here: Pt presents as depressed with recent suicidal gesture of getting in her car and starting the ignition with the intent to kill herself. She ended up getting out of the car and letting family know and they then brought her to the ER. She presents as hopeless and helpless, downcast expression, speech quiet, and has hx of depression with two previous suicide attempts. Pt. is and lives alone, however receives support from her three children. She is a patient of Dr. Reed. Assessment What has happened this shift: Pt. sleeping in bed at the beginning of the shift and remains here throughout the shift. This ad writer awoke pt. and encouraged her to attend HS snack, she initially refused, however later got up and did attend. This ad writer provided positive encouragement to pt. regarding her attendance, and she smiled and appeared pleased. 1:1 completed at bedside, pt. is cooperative, however remains guarded and withdrawn, affect is flat. She continues to endorse depression, states, "I feel depressed, I just feel nothing." When this ad writer questioned pt. in regard to S/I she did not answer. Pt. again requests PRN Ativan at HS reporting that is helps her sleep, however denies anxiety at this time. This ad writer encouraged pt to notify staff if unable to sleep and Ativan will be administered, pt. voiced understanding. Will continue to monitor. HS dose of Nardil unavailable to administer, per AM shift, medication may be available tomorrow, Dr. Longoria is aware and pt. reports understanding. S/I, H/I: Passive S/I, no current plan at this time A/VH: N/A Sleep: Pt. presents as fatigued, sleeping on and off throughout the shift ADL's: Pt. requires prompting and encouragement rom staff in order to complete ADLs Group attendance: Pt. attended HS snack with encouragement Were meds taken: Yes (Nardil unavailable) Any med S/E: None Mental Status Exam Appearance: Neat and appropriately dressed Eye contact: Poor to fair Behavior: Cooperative, however guarded and withdrawn, and fatigued Speech: Speech is soft, inaudible at times with a delay in response time. Mood: Depressed Affect: Flat Thought process: Poverty of thought and blocking Thought Content: Ongoing preoccupation with depressive thoughts and hopelessness Cognition: Pt. is A&O Insight: Poor Judgment: Poor Interventions PRN's used: None Therapeutic interventions: Maintained a safe and therapeutic environment, ensured contract for safety, provided encouragement and positive reenforcement, provided reorientation to reality as needed, monitored behaviors and need for intervention, and maintained Q 15 min safety checks. Restraints/seclusion/emergency medication: N/A Justification of Continued Inpatient Treatment: Pt. requires interruption of current crisis, medication adjustments, and a safe and supportive environment.
[2019-02-05 07:54] VITALS: BP 125/66
[2019-02-05] MEDS: losartan 50mg tablet PO SCH (07:54)
[2019-02-05] MEDS: metoprolol succinate 25mg (24-HOUR) SR. Tablet PO SCH (07:54)
[2019-02-05] MEDS: vitamin D (cholecalciferol) 1,000 unit tablet PO SCH ×2 (07:54→20:42)
[2019-02-05] MEDS: pravastatin 40mg tablet PO SCH (07:54)
[2019-02-05] MEDS: Estradiol 0.025mg/day patch (1 per week) TD SCH (07:57)
[2019-02-05] MEDS: [UNRECOGNIZED DRUG - OTHER] PO SCH ×4 (08:00→20:58)
[2019-02-05] MEDS: gentamicin 0.1% topical ointment 15gm TP SCH ×2 (08:03→20:43)
--- NOTE | 2019-02-05 10:01 | NUR ---
Morning Nursing Progress Note: Legal hold: Voluntary Client on voluntary DTS Report received from nurse with use of SBAR: Araseli Chu RN Why are they here: Pt presents as depressed with recent suicidal gesture of getting in her car and starting the ignition with the intent to kill herself. She ended up getting out of the car and letting family know and they then brought her to the ER. She presents as hopeless and helpless, downcast expression, speech quiet, and has hx of depression with two previous suicide attempts. Pt. is and lives alone, however receives support from her three children. She is a patient of Dr. Reed. Assessment What has happened this shift: Patient is observed sleeping at change of shift. She is awoken just prior to breakfast. She states that she feels like she slept well last night. She states that she doesnt think the Nardil is doing any good and I dont feel right. She reports increased depression. She is out of Nardil, report received that medication may be available on Wednesday. She takes her medications without issue and then joins others for breakfast. After breakfast she promptly returns to her room. She complains of increased anxiety while laying in bed with her feet elevated. Report given to Dustin WAGNER
--- NOTE | 2019-02-05 10:08 | NUR ---
Nursing Progress Note: Legal hold: Voluntary Client on voluntary DTS Report received from material handler 1st shift RN Why are they here: Pt presents as depressed with recent suicidal gesture of getting in her car and starting the ignition with the intent to kill herself. She ended up getting out of the car and letting family know and they then brought her to the ER. She presents as hopeless and helpless, downcast expression, speech quiet, and has hx of depression with two previous suicide attempts. Pt. is and lives alone, however receives support from her three children. She is a patient of Dr. Reed. Assessment What has happened this shift: This underwriter assumed care of this client at 1000 hours 05 February 2019. Client was in her bed when interviewed. She has no somatic complaints at this time and denied need for assistance. Client states, " I feel like I am in a box and cannot get out". Client was reassured that she was in a safe place and qwe would continue to check with her at frequent intervals. S/I, H/I: Passive S/I, no current plan at this time A/VH: N/A Sleep: Pt. presents as fatigued, sleeping on and off throughout the shift ADL's: Pt. requires prompting and encouragement rom staff in order to complete ADLs Group attendance: Were meds taken: Yes (Nardil unavailable) Any med S/E: None Mental Status Exam Appearance: Neat and appropriately dressed Eye contact: Poor Behavior: Cooperative, however guarded and withdrawn, and fatigued Speech: Speech is soft, inaudible at times with a delay in response time. Mood: Depressed Affect: Flat Thought process: Poverty of thought and blocking Thought Content: Ongoing preoccupation with depressive thoughts and hopelessness Cognition: Pt. is A&O Insight: Poor Judgment: Poor Interventions PRN's used: None Therapeutic interventions: Maintained a safe and therapeutic environment, ensured contract for safety, provided encouragement and positive reenforcement, provided reorientation to reality as needed, monitored behaviors and need for intervention, and maintained Q 15 min safety checks. Restraints/seclusion/emergency medication: N/A Justification of Continued Inpatient Treatment: Pt. requires interruption of current crisis, medication adjustments, and a safe and supportive environment.
[2019-02-05] MEDS: LORazepam 0.5 MG tablet PO PRN (10:22)
--- NOTE | 2019-02-05 12:19 | NUR ---
Nursing Progress Note: Legal hold: Voluntary Client on voluntary DTS Report received from nurse with use of SBAR Why are they here: Pt presents as depressed with recent suicidal gesture of getting in her car and starting the ignition with the intent to kill herself. She ended up getting out of the car and letting family know and they then brought her to the ER. She presents as hopeless and helpless, downcast expression, speech quiet, and has hx of depression with two previous suicide attempts. Pt. is and lives alone, however receives support from her three children. She is a patient of Dr. Reed. Assessment What has happened this shift: Assumed care of client about 1000 hours this shift. Client was interviewed by typewriter ribbon winder and during assessment, asked for Ativan which was given with good effect. Client participated in morning Group and interacted well with her peers. She denies current S/I and stated she will seek out staff if she starts to have thoughts of self harm. S/I, H/I: Passive S/I, no current plan at this time A/VH: N/A Sleep: Pt. presents as fatigued, sleeping on and off throughout the shift ADL's: Pt. requires prompting and encouragement rom staff in order to complete ADLs Group attendance: Pt. attended Were meds taken: Yes (Nardil unavailable) Any med S/E: None Mental Status Exam Appearance: Neat and appropriately dressed Eye contact: Poor to fair Behavior: Cooperative, however guarded and withdrawn, and fatigued Speech: Speech is soft, inaudible at times with a delay in response time. Mood: Depressed Affect: Flat Thought process: Poverty of thought and blocking Thought Content: Ongoing preoccupation with depressive thoughts and hopelessness Cognition: Pt. is A&O Insight: Poor Judgment: Poor Interventions PRN's used: Ativan x 1 this shift. Therapeutic interventions: Maintained a safe and therapeutic environment, ensured contract for safety, provided encouragement and positive reenforcement, provided reorientation to reality as needed, monitored behaviors and need for intervention, and maintained Q 15 min safety checks. Restraints/seclusion/emergency medication: N/A Justification of Continued Inpatient Treatment: Pt. requires interruption of current crisis, medication adjustments, and a safe and supportive environment.
--- NOTE | 2019-02-05 18:43 | NUR ---
Patient in room MH 324. I have received report from KRISTY Bosch and had the opportunity to ask questions and assume patient care.
[2019-02-05 19:45] VITALS: BP 117/52
[2019-02-05] MEDS: Melatonin 3mg tablet PO SCH (20:42)
[2019-02-05] MEDS: paliperidone 1.5mg ER tablet PO SCH (20:42)
[2019-02-05] MEDS: docusate sod 100mg capsule PO SCH (20:43)
[2019-02-05] MEDS: psyllium seed 3.4 gm packet PO SCH (20:43)
[2019-02-05] MEDS: LORazepam 1 MG tablet PO PRN (21:45)
--- NOTE | 2019-02-06 01:25 | NUR ---
Nursing Progress Note: Legal hold: Voluntary Client on voluntary DTS Report received from nurse with use of SBAR Why are they here: Pt presents as depressed with recent suicidal gesture of getting in her car and starting the ignition with the intent to kill herself. She ended up getting out of the car and letting family know and they then brought her to the ER. She presents as hopeless and helpless, downcast expression, speech quiet, and has hx of depression with two previous suicide attempts. Pt. is and lives alone, however receives support from her three children. She is a patient of Dr. Reed. Assessment What has happened this shift: Pt lying in bed from start of shift. Does not show any desire to socialize or retreat from bed. Fixated on getting Nardil and the pharmacy was contacted in [facility]. Advised medication will be delivered by daughter next day. Pt was worried because daughter had to work and she was concerned she would not receive her medications. Denies depression at this time. Fatigueld. S/I, H/I: Denies A/VH: N/A Sleep: Pt. Sleeping on and off throughout shift. ADL's: Pt. requires prompting and encouragement rom staff in order to complete ADLs Group attendance: N/A Were meds taken: Yes (Nardil unavailable) Any med S/E: None Mental Status Exam Appearance: Neat and appropriately dressed Eye contact: Poor to fair Behavior: Cooperative, however guarded and withdrawn, and fatigued Speech: Speech is soft, inaudible at times with a delay in response time. Mood: Depressed Affect: Flat Thought process: Poverty of thought and blocking Thought Content: Nardil medication unavailability Cognition: Pt. is A&O Insight: Poor Judgment: Poor Interventions PRN's used: Ativan x 1 this shift. Therapeutic interventions: Maintained a safe and therapeutic environment, ensured contract for safety, provided encouragement and positive reenforcement, provided reorientation to reality as needed, monitored behaviors and need for intervention, and maintained Q 15 min safety checks. Restraints/seclusion/emergency medication: N/A Justification of Continued Inpatient Treatment: Pt. requires interruption of current crisis, medication adjustments, and a safe and supportive environment.
[2019-02-06] MEDS: [UNRECOGNIZED DRUG - OTHER] PO SCH ×4 (08:00→20:51)
[2019-02-06] MEDS: losartan 50mg tablet PO SCH (08:26)
[2019-02-06] MEDS: vitamin D (cholecalciferol) 1,000 unit tablet PO SCH ×2 (08:27→20:12)
[2019-02-06] MEDS: pravastatin 40mg tablet PO SCH (08:28)
[2019-02-06] MEDS: gentamicin 0.1% topical ointment 15gm TP SCH ×2 (08:29→20:12)
[2019-02-06] MEDS: metoprolol succinate 25mg (24-HOUR) SR. Tablet PO SCH (08:29)
[2019-02-06] MEDS: docusate sod 100mg capsule PO SCH ×2 (08:29→20:12)
[2019-02-06 08:30] VITALS: BP 135/53
[2019-02-06] MEDS: LORazepam 0.5 MG tablet PO PRN (09:50)
--- NOTE | 2019-02-06 12:47 | NUR ---
Initial: Pt admit to [facility] for depression. Pt currently on a "low tyramine" Reassessment: Patient is eating well, 75-100% PO intake. Meeting nutrition needs. LBM 02/06, no GI symptoms. Christian 21, skin intact. Will continue to follow. Recommendations: 1) Advance to regular diet 2) Routine bowel care 3) Wt per rx Addendum: 02/06/19 at [address] Amended: Links added.
--- NOTE | 2019-02-06 15:48 | NUR ---
Nursing Progress Note Legal hold: Voluntary Report received from Araseli Chu RN Why are they here: Pt presents as depressed with recent suicidal gesture of getting in her car and starting the ignition with the intent to kill herself. She ended up getting out of the car and letting family know. She presents as hopeless and helpless, downcast expression, speech quiet. A&Ox4. On second week of Nardil 30 mg, titrating up. Sees Dr. Morales outpatient. Assessment: What happened this shift: Pt. laying in bed until medications and breakfast. Pt. cooperative, but fatigued. Reports that she is still suicidal with a plan to go into her car, start it and drift off to sleep (though she states that she does not want this). She reports that her daughter and son do not know what to do with her anymore. She says she just lays around the house without any motivation to do anything. 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 Asking if her daughter brought in her med, still awaiting. Patient reports that she goes into group with her hearing aides turned all the way up and she still cannot hear, so she leaves group. Reported to Patsy, who will tell other SW's. S/I, H/I: Active with plan as above. A/VH: Denies ADL's: Independent with prompting. Sleep: 9.0 hrs. at night, napped most of day. Group attendance: Yes. Were meds taken: Yes Any med S/E: None noted. Mental Status Exam Appearance: Hair unkempt, dressed appropriately Eye contact: Direct Behavior: Cooperative, anxious Speech: Soft tone, slow response time Mood: Depressed Affect: Flat Thought process: Linear Thought Content: Focused on hopelessness and depression. Cognition: A/Ox4 Insight: Fair. Judgment: Poor. Interventions PRN's used: Ativan Therapeutic interventions: 1:1 therapeutic assessment, maintained safe therapeutic milieu, provided active listening with positive reinforcement, provided medication administration/education/monitoring as needed; Q15 safety checks. Restraints/seclusion/emergency medication: N/A Justification of Continued Inpatient Treatment : Therapeutic support and medication management needed to provide stabilization, and prevent decompensation decreasing risk to patient for readmittance to inpatient unit.
[2019-02-06 19:55] VITALS: BP 124/60
[2019-02-06] MEDS: LORazepam 1 MG tablet PO PRN (20:12)
[2019-02-06] MEDS: Melatonin 3mg tablet PO SCH (20:12)
[2019-02-06] MEDS: paliperidone 1.5mg ER tablet PO SCH (20:12)
[2019-02-06] MEDS: psyllium seed 3.4 gm packet PO SCH (20:17)
--- NOTE | 2019-02-06 22:03 | NUR ---
Nursing Progress Note Legal hold: Voluntary Report received from RKISTY Bosch Why are they here: Pt presents as depressed with recent suicidal gesture of getting in her car and starting the ignition with the intent to kill herself. She ended up getting out of the car and letting family know. She presents as hopeless and helpless, downcast expression, speech quiet. A&Ox4. On second week of Nardil 30 mg, titrating up. Sees Dr. Morales outpatient. Assessment: What happened this shift: Pt sitting in bed at change of shift flossing her teeth. 1:1 assessment completed at bedside. Pt continues to present as depressed, doesnt answer regarding s/i but states "I just don't want to be anymore." Pt states she left group early because she doesn't feel like she has anything to contribute. Pt is asking about when she will get Nardil and per report, a message was left w/her daughter. S/I, H/I: doesnt answer when asked A/VH: Denies ADL's: Independent with prompting. Sleep: reports trouble falling asleep due to anxiety and requests ativan at hs. Group attendance: no evening groups Were meds taken: Yes Any med S/E: None noted. Mental Status Exam Appearance: Hair unkempt, dressed appropriately Eye contact: Direct Behavior: Cooperative, anxious Speech: Soft tone, slow response time Mood: Depressed Affect: Flat Thought process: Linear Thought Content: Focused on hopelessness, asking about medication Cognition: A/Ox4 Insight: Fair. Judgment: Poor. Interventions PRN's used: Ativan Therapeutic interventions: 1:1 therapeutic assessment, maintained safe therapeutic milieu, provided active listening with positive reinforcement, provided medication administration/education/monitoring as needed; Q15 safety checks. Restraints/seclusion/emergency medication: N/A Justification of Continued Inpatient Treatment : Therapeutic support and medication management needed to provide stabilization, and prevent decompensation decreasing risk to patient for readmittance to inpatient unit.
[2019-02-07] MEDS: metoprolol succinate 25mg (24-HOUR) SR. Tablet PO SCH (07:44)
[2019-02-07] MEDS: docusate sod 100mg capsule PO SCH ×2 (07:45→20:25)
[2019-02-07] MEDS: vitamin D (cholecalciferol) 1,000 unit tablet PO SCH ×2 (07:45→20:25)
[2019-02-07] MEDS: [UNRECOGNIZED DRUG - OTHER] PO SCH ×4 (08:00→20:26)
[2019-02-07] MEDS: gentamicin 0.1% topical ointment 15gm TP SCH ×2 (08:00→20:26)
[2019-02-07 08:01] VITALS: BP 136/56
[2019-02-07] MEDS: pravastatin 40mg tablet PO SCH (08:09)
[2019-02-07] MEDS: losartan 50mg tablet PO SCH (08:17)
[2019-02-07] MEDS: LORazepam 1 MG tablet PO PRN ×2 (10:53→20:26)
[2019-02-07] MEDS ORDERED: [UNRECOGNIZED DRUG - OTHER] PO ONE (11:35)
--- NOTE | 2019-02-07 12:11 | NUR ---
Nursing Progress Note Legal hold: Voluntary Report received from continuous improvement engineer. Why are they here: Pt presents as depressed with recent suicidal gesture of getting in her car and starting the ignition with the intent to kill herself. She ended up getting out of the car and letting family know. She presents as hopeless and helpless, downcast expression, speech quiet. A&Ox4. On second week of Nardil 30 mg, titrating up. Sees Dr. Morales outpatient. Assessment: What happened this shift: Received patient at shift change. Client was in bed and was alert and oriented x 2. Client was concerned regarding a home medication (Nardil) which arrived this am, Now dose given at 1135 hours. Client was given Ativan 1 mg po in the morning for complaints of being agitated. Pt appears to be more withdrawn today and refused specific am meds this shift. S/I, H/I: currently denies A/VH: Denies ADL's: Independent with prompting. Sleep: rested frequently during this shift. Group attendance: no Were meds taken: Some. Others refused Any med S/E: None noted. Mental Status Exam Appearance: Hair unkempt, dressed appropriately Eye contact: Direct Behavior: Cooperative, anxious Speech: Soft tone, slow response time Mood: Depressed Affect: Flat Thought process: Linear Thought Content: Focused on hopelessness, asking about medication Cognition: A/Ox2 Insight: Fair. Judgment: Poor. Interventions PRN's used: Ativan Therapeutic interventions: 1:1 therapeutic assessment, maintained safe therapeutic milieu, provided active listening with positive reinforcement, provided medication administration/education/monitoring as needed; Q15 safety checks. Restraints/seclusion/emergency medication: N/A Justification of Continued Inpatient Treatment : Therapeutic support and medication management needed to provide stabilization, and prevent decompensation decreasing risk to patient for readmittance to inpatient unit.
[2019-02-07] MEDS: psyllium seed 3.4 gm packet PO SCH (20:25)
[2019-02-07] MEDS: Melatonin 3mg tablet PO SCH (20:26)
[2019-02-07] MEDS: paliperidone 1.5mg ER tablet PO SCH (20:26)
[2019-02-07 20:28] VITALS: BP 117/89
--- NOTE | 2019-02-07 21:06 | NUR ---
Nursing Progress Note Legal hold: Voluntary Report received from ARIE Bosch Why are they here: Pt presents as depressed with recent suicidal gesture of getting in her car and starting the ignition with the intent to kill herself. She ended up getting out of the car and letting family know. She presents as hopeless and helpless, downcast expression, speech quiet. A&Ox4. On second week of Nardil 30 mg, titrating up. Sees Dr. Morales outpatient. Assessment: What happened this shift: Pt was in bed at change of shift, 1:1 assessment completed at bedside. Pt states she doesnt feel her mood has improved and she is feeling hopeless about getting better. pt c/o not sleeping well last night states she has difficulty falling asleep after she wakes to use the restroom. Pt reports appetite is "ok". She did not attend groups stating its difficult for her to hear and she doesn't feel like she has anything to contribute. pt is med compliant. Denies s/i S/I, H/I: currently denies A/VH: Denies ADL's: Independent with prompting. Sleep: reports difficulty falling asleep Group attendance: no evening groups Were meds taken: yes Any med S/E: None noted. Mental Status Exam Appearance: Hair unkempt, dressed appropriately Eye contact: Direct Behavior: Cooperative, anxious, remains in bed Speech: Soft tone, slow response time Mood: Depressed Affect: Flat Thought process: Linear Thought Content: Focused on hopelessness, asking about medication Cognition: A/Ox2 Insight: Fair. Judgment: Poor. Interventions PRN's used: Ativan Therapeutic interventions: 1:1 therapeutic assessment, maintained safe therapeutic milieu, provided active listening with positive reinforcement, provided medication administration/education/monitoring as needed; Q15 safety checks. Restraints/seclusion/emergency medication: N/A Justification of Continued Inpatient Treatment : Therapeutic support and medication management needed to provide stabilization, and prevent decompensation decreasing risk to patient for readmittance to inpatient unit.
[2019-02-08 08:29] VITALS: BP 118/49
[2019-02-08] MEDS: pravastatin 40mg tablet PO SCH (08:36)
[2019-02-08] MEDS: vitamin D (cholecalciferol) 1,000 unit tablet PO SCH ×2 (08:36→21:01)
[2019-02-08] MEDS: docusate sod 100mg capsule PO SCH ×2 (08:37→21:00)
[2019-02-08] MEDS: losartan 50mg tablet PO SCH (08:37)
[2019-02-08] MEDS: metoprolol succinate 25mg (24-HOUR) SR. Tablet PO SCH (08:38)
[2019-02-08] MEDS: gentamicin 0.1% topical ointment 15gm TP SCH ×2 (08:38→21:02)
[2019-02-08] MEDS: [UNRECOGNIZED DRUG - OTHER] PO SCH ×4 (08:38→21:04)
[2019-02-08] MEDS: LORazepam 1 MG tablet PO PRN (11:37)
--- NOTE | 2019-02-08 12:59 | NUR ---
Nursing Progress Note Legal hold: Voluntary Report received from KRISTY Mehta Why are they here: Pt presents as depressed with recent suicidal gesture of getting in her car and starting the ignition with the intent to kill herself. She ended up getting out of the car and letting family know. She presents as hopeless and helpless, downcast expression, speech quiet. A&Ox4. On second week of Nardil 30 mg, titrating up. Sees Dr. Morales outpatient. Assessment: What happened this shift? Patient sleeping until awakened for breakfast. At about 10:00 pt was heard moaning loudly in her room and leaning forward in bed stretching her legs. She stated she wanted a shower, and that she was feeling anxious. Ativan and shower provided with good relief. Pt. reports that she feels hopeless and that her depression is no better. She attends all meals, but did not attend a.m. group. S/I, H/I: Denies, but is hopeless. A/VH: Denies ADL's: Independent with prompting. Sleep: 9.0 hrs. at night, napped most of day. Group attendance: Did not attend a.m. group. Were meds taken: Yes Any med S/E: None noted. Mental Status Exam Appearance: Showered, clean and appropriate for unit. Eye contact: Direct Behavior: Cooperative, anxious Speech: Soft tone, slow response time Mood: Depressed Affect: Flat Thought process: Linear Thought Content: Focused on hopelessness and depression. Cognition: A/Ox4 Insight: Fair. Judgment: Poor. Interventions PRN's used: Ativan Therapeutic interventions: 1:1 therapeutic assessment, maintained safe therapeutic milieu, provided active listening with positive reinforcement, provided medication administration/education/monitoring as needed; Q15 safety checks. Restraints/seclusion/emergency medication: N/A Justification of Continued Inpatient Treatment : Therapeutic support and medication management needed to provide stabilization, and prevent decompensation decreasing risk to patient for readmittance to inpatient unit.
[2019-02-08 20:00] VITALS: BP 118/53
[2019-02-08] MEDS: Melatonin 3mg tablet PO SCH (21:02)
[2019-02-08] MEDS: paliperidone 1.5mg ER tablet PO SCH (21:03)
[2019-02-08] MEDS: psyllium seed 3.4 gm packet PO SCH (21:11)
--- NOTE | 2019-02-08 22:12 | NUR ---
Nursing Progress Note Legal hold: Voluntary Report received from KRISTY Mehta Why are they here: Pt presents as depressed with recent suicidal gesture of getting in her car and starting the ignition with the intent to kill herself. She ended up getting out of the car and letting family know. She presents as hopeless and helpless, downcast expression, speech quiet. A&Ox4. On second week of Nardil 30 mg, titrating up. Sees Dr. Morales outpatient. Assessment: What happened this shift? Patient sleeping at change of shift. Pt. reports that she feels hopeless and that her depression is no better. She attends all meals, but isolates to her room. Pt states that she is not getting any better still depressed. S/I, H/I: Denies, but is hopeless. A/VH: Denies ADL's: Independent with prompting. Sleep: 9.0 hrs. at night, napped most of day. Group attendance: Did not attend a.m. group. Were meds taken: Yes Any med S/E: None noted. Mental Status Exam Appearance: Showered, clean and appropriate for unit. Eye contact: Direct Behavior: Cooperative, anxious Speech: Soft tone, slow response time Mood: Depressed Affect: Flat Thought process: Linear Thought Content: Focused on hopelessness and depression. Cognition: A/Ox4 Insight: Fair. Judgment: Poor. Interventions PRN's used: Ativan Therapeutic interventions: 1:1 therapeutic assessment, maintained safe therapeutic milieu, provided active listening with positive reinforcement, provided medication administration/education/monitoring as needed; Q15 safety checks. Restraints/seclusion/emergency medication: N/A Justification of Continued Inpatient Treatment : Therapeutic support and medication management needed to provide stabilization, and prevent decompensation decreasing risk to patient for readmittance to inpatient unit.
[2019-02-09 07:44] VITALS: BP 124/55
[2019-02-09] MEDS: docusate sod 100mg capsule PO SCH ×2 (08:01→20:26)
[2019-02-09] MEDS: metoprolol succinate 25mg (24-HOUR) SR. Tablet PO SCH (08:01)
[2019-02-09] MEDS: LORazepam 1 MG tablet PO PRN ×2 (08:01→16:16)
[2019-02-09] MEDS: [UNRECOGNIZED DRUG - OTHER] PO SCH ×4 (08:02→20:26)
[2019-02-09] MEDS: losartan 50mg tablet PO SCH (08:02)
[2019-02-09] MEDS: vitamin D (cholecalciferol) 1,000 unit tablet PO SCH ×2 (08:02→20:27)
[2019-02-09] MEDS: gentamicin 0.1% topical ointment 15gm TP SCH ×2 (08:04→20:31)
[2019-02-09] MEDS: pravastatin 40mg tablet PO SCH (08:11)
--- NOTE | 2019-02-09 17:00 | NUR ---
Nursing Progress Note Legal hold: Voluntary Report received from KRISTY Mehta Why are they here: Pt presents as depressed with recent suicidal gesture of getting in her car and starting the ignition with the intent to kill herself. She ended up getting out of the car and letting family know. She presents as hopeless and helpless, downcast expression, speech quiet. A&Ox4. On second week of Nardil 30 mg, titrating up. Sees Dr. Morales outpatient. Assessment: What happened this shift? Patient sleeping at change of shift. Pt. heard yelling in room, when asked what was wrong pt. responds, "I need an ativan". Pt. given ativan 1mg po with good effect. Pt. reports that she feels hopeless and that her depression is no better. She attends all meals, but isolates to her room. Pt states that she is not getting any better still depressed. Pt. denies SI, but makes passive SI statements such as, "It will be better when I'm gone". Pt. seen pacing on the unit at times, napping at other times. S/I, H/I: Denies, but is hopeless. A/VH: Denies ADL's: Independent with prompting. Sleep: 7.5 hrs hrs plus napped during the day. Group attendance: Pt. did not attend groups today. Were meds taken: Yes Any med S/E: None noted. Mental Status Exam Appearance: clean and appropriate for unit. Eye contact: Direct Behavior: Cooperative, anxious Speech: Soft tone, slow response time Mood: Depressed Affect: Flat Thought process: Linear Thought Content: Focused on hopelessness and depression. Cognition: A/Ox4 Insight: Fair. Judgment: Poor. Interventions PRN's used: Ativanx2 Therapeutic interventions: 1:1 therapeutic assessment, maintained safe therapeutic milieu, provided active listening with positive reinforcement, provided medication administration/education/monitoring as needed; Q15 safety checks. Restraints/seclusion/emergency medication: N/A Justification of Continued Inpatient Treatment : Therapeutic support and medication management needed to provide stabilization, and prevent decompensation decreasing risk to patient for readmittance to inpatient unit.
[2019-02-09 19:38] VITALS: BP 138/67
[2019-02-09] MEDS: Melatonin 3mg tablet PO SCH (20:28)
[2019-02-09] MEDS: psyllium seed 3.4 gm packet PO SCH (20:28)
[2019-02-09] MEDS: paliperidone 1.5mg ER tablet PO SCH (20:28)
--- NOTE | 2019-02-09 22:56 | NUR ---
Nursing Progress Note Legal hold: Voluntary Report received from TEETEE Levy Why are they here: Pt presents as depressed with recent suicidal gesture of getting in her car and starting the ignition with the intent to kill herself. She ended up getting out of the car and letting family know. She presents as hopeless and helpless, downcast expression, speech quiet. A&Ox4. On second week of Nardil 30 mg, titrating up. Sees Dr. Morales outpatient. Assessment: What happened this shift? Patient laying in bed awake at beginning of shift. Initial conversation patient was gaurded and only answering questions with "yes" or "no." Later in the shift patient opened up a little more making comment such as this policy writer sales having the same name as her sister. She stated she is feeling "just okay" when this policy writer sales ask her to elaborate she stated she just feels "depressed." Patient has not left her room this shift. S/I, H/I: Denies A/VH: Denies ADL's: Independent with prompting. Sleep: Asleep at this time Group attendance: no Were meds taken: Yes Any med S/E: None reported, none observed Mental Status Exam Appearance: dressed in own clothes, hair unkept Eye contact: Direct Behavior: Cooperative Speech: Soft tone, slow response time Mood: Depressed Affect: Flat Thought process: Linear Thought Content: depression Cognition: A/Ox4 Insight: Fair. Judgment: Poor. Interventions PRN's used: none at this time Therapeutic interventions: 1:1 therapeutic assessment, maintained safe therapeutic milieu, provided active listening with positive reinforcement, provided medication administration/education/monitoring as needed; Q15 safety checks. Restraints/seclusion/emergency medication: N/A Justification of Continued Inpatient Treatment : Therapeutic support and medication management needed to provide stabilization, and prevent decompensation decreasing risk to patient for readmittance to inpatient unit.
[2019-02-10 07:59] VITALS: BP 136/81
[2019-02-10] MEDS: gentamicin 0.1% topical ointment 15gm TP SCH ×2 (08:00→19:49)
[2019-02-10] MEDS: pravastatin 40mg tablet PO SCH (08:05)
[2019-02-10] MEDS: vitamin D (cholecalciferol) 1,000 unit tablet PO SCH ×2 (08:06→19:51)
[2019-02-10] MEDS: [UNRECOGNIZED DRUG - OTHER] PO SCH ×4 (08:06→19:51)
[2019-02-10] MEDS: losartan 50mg tablet PO SCH (08:06)
[2019-02-10] MEDS: docusate sod 100mg capsule PO SCH ×2 (08:06→19:51)
[2019-02-10] MEDS: metoprolol succinate 25mg (24-HOUR) SR. Tablet PO SCH (08:06)
[2019-02-10] MEDS: LORazepam 1 MG tablet PO PRN ×2 (09:05→15:54)
--- NOTE | 2019-02-10 17:00 | NUR ---
Nursing Progress Note Legal hold: Voluntary Report received from KRISTY Mehta Why are they here: Pt presents as depressed with recent suicidal gesture of getting in her car and starting the ignition with the intent to kill herself. She ended up getting out of the car and letting family know. She presents as hopeless and helpless, downcast expression, speech quiet. A&Ox4. On second week of Nardil 30 mg, titrating up. Sees Dr. Morales outpatient. Assessment: What happened this shift? Pt. asleep at beginning of shift. Pt. Patient sleeping at change of shift. Pt. overheard yelling in room at times. Pt. recieved ativan this AM for increased anxiety with good effect. 1:1 done at bedside, pt. reporting depression 04/27. Pt. hopeless/helpless. Pt. states, "I'm just alone, what is there left to live for, nothing works, I was on Nardil for 30 years and it worked so well. then I came off it, now I'm back on it but it's not working." Pt. napping frequently. Pt. did not attend groups. Pt. seen pacing at times. pt. requested ativan prn in am and pm. Pt. recieved relief from prn medication. Pt. is isolative and withdrawn, mostly staying in her room. S/I, H/I: Pt. has passive SI. A/VH: Denies ADL's: Independent with prompting. Sleep: 8 hrs hrs plus napped during the day. Group attendance: Pt. did not attend groups today. Were meds taken: Yes Any med S/E: None noted. Mental Status Exam Appearance: clean and appropriate for unit. Eye contact: Direct Behavior: Cooperative, anxious Speech: Soft tone, slow response time Mood: Depressed Affect: Flat Thought process: Linear Thought Content: Focused on hopelessness and depression. Cognition: A/Ox4 Insight: Fair. Judgment: Poor. Interventions PRN's used: Ativanx2 Therapeutic interventions: 1:1 therapeutic assessment, maintained safe therapeutic milieu, provided active listening with positive reinforcement, provided medication administration/education/monitoring as needed; Q15 safety checks. Restraints/seclusion/emergency medication: N/A Justification of Continued Inpatient Treatment : Therapeutic support and medication management needed to provide stabilization, and prevent decompensation decreasing risk to patient for readmittance to inpatient unit.
[2019-02-10] MEDS: psyllium seed 3.4 gm packet PO SCH (19:49)
[2019-02-10] MEDS: paliperidone 1.5mg ER tablet PO SCH (19:52)
[2019-02-10] MEDS: Melatonin 3mg tablet PO SCH (19:54)
[2019-02-10 20:00] VITALS: BP 99/54
--- NOTE | 2019-02-10 23:53 | NUR ---
Nursing Progress Note Legal hold: Voluntary Report received from TEETEE Levy Why are they here: Pt presents as depressed with recent suicidal gesture of getting in her car and starting the ignition with the intent to kill herself. She ended up getting out of the car and letting family know. She presents as hopeless and helpless, downcast expression, speech quiet. A&Ox4. On second week of Nardil 30 mg, titrating up. Sees Dr. Morales outpatient. Assessment: What happened this shift? Patient asleep at the beginning of shift. Isolating to room. Guarded, not wanting to socialize. Provided short answers. Such as when this grant writer asked the patient how her day was, she stated "fine" and closed her eyes to go back to sleep. Patient cooperative with all medications, stated she no longer needs her gentamicin as problem area has been resolved. S/I, H/I: Pt. denies A/VH: Denies ADL's: Independent with prompting. Sleep: asleep at this time. Group attendance: no Were meds taken: Yes Any med S/E: None reported, none observed. Mental Status Exam Appearance: clean and appropriate for unit. Eye contact: Direct Behavior: guarded Speech: Soft tone, slow response time Mood: Depressed Affect: Flat Thought process: Linear Thought Content: unable to assess. Cognition: A/Ox4 Insight: Fair. Judgment: Poor. Interventions PRN's used: none at this time. Therapeutic interventions: 1:1 therapeutic assessment, maintained safe therapeutic milieu, provided active listening with positive reinforcement, provided medication administration/education/monitoring as needed; Q15 safety checks. Restraints/seclusion/emergency medication: N/A Justification of Continued Inpatient Treatment : Therapeutic support and medication management needed to provide stabilization, and prevent decompensation decreasing risk to patient for readmittance to inpatient unit.
[2019-02-11 08:00] VITALS: BP 122/47
[2019-02-11] MEDS: gentamicin 0.1% topical ointment 15gm TP SCH ×2 (08:00→20:00)
[2019-02-11] MEDS: vitamin D (cholecalciferol) 1,000 unit tablet PO SCH ×2 (08:19→20:33)
[2019-02-11] MEDS: pravastatin 40mg tablet PO SCH (08:19)
[2019-02-11] MEDS: docusate sod 100mg capsule PO SCH ×2 (08:20→20:32)
[2019-02-11] MEDS: metoprolol succinate 25mg (24-HOUR) SR. Tablet PO SCH (08:20)
[2019-02-11] MEDS: losartan 50mg tablet PO SCH (08:20)
[2019-02-11] MEDS: [UNRECOGNIZED DRUG - OTHER] PO SCH ×4 (08:21→20:32)
[2019-02-11] MEDS: LORazepam 1 MG tablet PO PRN ×2 (10:18→17:26)
--- NOTE | 2019-02-11 17:15 | NUR ---
Nursing Progress Note Legal hold: Voluntary Report received from KRISTY Mehta Why are they here: Pt presents as depressed with recent suicidal gesture of getting in her car and starting the ignition with the intent to kill herself. She ended up getting out of the car and letting family know. She presents as hopeless and helpless, downcast expression, speech quiet. A&Ox4. On second week of Nardil 30 mg, titrating up. Sees Dr. Morales outpatient. Assessment: What happened this shift? Pt. moaning and crying out in the AM, pt. reporting that she is depressed, that she feels, "empty inside", pt. states, "I don't want to be..." RN asked pt. to elborate on what she means by that but pt. refused to respond. Pt. reports intolerable depression. Pt. given ativan 1mg in AM and PM with good effect. Pt. tends moans and cries out when she has a need. Pt. lays in bed most of the day taking frequent naps. Pt. is withdrawn and isolative and does not attend groups. Pt. eats meals out in day room and has a good apetitie. Pt. seen pacing at times. Pt. states she showered today. S/I, H/I: Pt. has passive SI. A/VH: Denies ADL's: Independent Sleep: 9.25 hrs hrs plus napped during the day. Group attendance: Pt. did not attend groups today. Were meds taken: Yes Any med S/E: None noted. Mental Status Exam Appearance: clean and appropriate for unit. Eye contact: Direct Behavior: Cooperative, anxious, and depressed. Speech: Soft tone, slow response time Mood: Depressed Affect: Flat Thought process: Linear Thought Content: Focused on hopelessness and depression. Cognition: A/Ox4 Insight: Fair. Judgment: Poor. Interventions PRN's used: Ativanx2 Therapeutic interventions: 1:1 therapeutic assessment, maintained safe therapeutic milieu, provided active listening with positive reinforcement, provided medication administration/education/monitoring as needed; Q15 safety checks. Restraints/seclusion/emergency medication: N/A Justification of Continued Inpatient Treatment : Therapeutic support and medication management needed to provide stabilization, and prevent decompensation decreasing risk to patient for readmittance to inpatient unit.
[2019-02-11 19:34] VITALS: BP 112/48
[2019-02-11] MEDS: paliperidone 1.5mg ER tablet PO SCH (20:32)
[2019-02-11] MEDS: psyllium seed 3.4 gm packet PO SCH (20:33)
[2019-02-11] MEDS: Melatonin 3mg tablet PO SCH (20:33)
--- NOTE | 2019-02-12 02:36 | NUR ---
Nursing Progress Note Legal hold: Voluntary Report received from TEETEE Levy Why are they here: Pt presents as depressed with recent suicidal gesture of getting in her car and starting the ignition with the intent to kill herself. She ended up getting out of the car and letting family know. She presents as hopeless and helpless, downcast expression, speech quiet. A&Ox4. On second week of Nardil 30 mg, titrating up. Sees Dr. Morales outpatient. Assessment: What happened this shift? Patient asleep at the beginning of shift. Isolating to room. Guarded, not wanting to socialize. Provided short answers. Such as when this staff writer asked the patient how her day was, she stated "not good." This staff writer asked her to elaborate she did not provide an answer but blankly stared. This staff writer asked if she felt depressed and if that could contributed to making her day "not good" and she replied "yes." Patient compliant with all medication and went to sleep shortly after. S/I, H/I: Pt. denies A/VH: Denies ADL's: Independent with prompting. Sleep: asleep at this time. Group attendance: no Were meds taken: Yes Any med S/E: None reported, none observed. Mental Status Exam Appearance: clean and appropriate for unit. Eye contact: Direct Behavior: guarded Speech: Soft tone, slow response time Mood: Depressed Affect: Flat Thought process: Linear Thought Content: unable to assess. Cognition: A/Ox4 Insight: Fair. Judgment: Poor. Interventions PRN's used: none at this time. Therapeutic interventions: 1:1 therapeutic assessment, maintained safe therapeutic milieu, provided active listening with positive reinforcement, provided medication administration/education/monitoring as needed; Q15 safety checks. Restraints/seclusion/emergency medication: N/A Justification of Continued Inpatient Treatment : Therapeutic support and medication management needed to provide stabilization, and prevent decompensation decreasing risk to patient for readmittance to inpatient unit. Addendum: 02/12/19 at 0441 by Carmela Ku RN Nursing Progress Note Legal hold: Voluntary Report received from TEETEE Levy Why are they here: Pt presents as depressed with recent suicidal gesture of getting in her car and starting the ignition with the intent to kill herself. She ended up getting out of the car and letting family know. She presents as hopeless and helpless, downcast expression, speech quiet. A&Ox4. On second week of Nardil 30 mg, titrating up. Sees Dr. Morales outpatient. Assessment: What happened this shift? Patient asleep at the beginning of shift. Isolating to room. Guarded, not wanting to socialize. Provided short answers. Such as when this staff writer asked the patient how her day was, she stated "not good." This staff writer asked her to elaborate she did not provide an answer but blankly stared. This staff writer asked if she felt depressed and if that could contributed to making her day "not good" and she replied "yes." This staff writer asked the patient if she had thoughts of harming herself, she replied "sometimes" she was then asked if she felt like if she was not on the unit if she would act on those thoughts and she replied "maybe." Patient compliant with all medication and went to sleep shortly after. S/I, H/I: S/I with no clear plan A/VH: Denies ADL's: Independent with prompting. Sleep: asleep at this time. Group attendance: no Were meds taken: Yes Any med S/E: None reported, none observed. Mental Status Exam Appearance: clean and appropriate for unit. Eye contact: Direct Behavior: guarded Speech: Soft tone, slow response time Mood: Depressed Affect: Flat Thought process: Linear Thought Content: unable to assess. Cognition: A/Ox4 Insight: Fair. Judgment: Poor. Interventions PRN's used: none at this time. Therapeutic interventions: 1:1 therapeutic assessment, maintained safe therapeutic milieu, provided active listening with positive reinforcement, provided medication administration/education/monitoring as needed; Q15 safety checks. Restraints/seclusion/emergency medication: N/A Justification of Continued Inpatient Treatment : Therapeutic support and medication management needed to provide stabilization, and prevent decompensation decreasing risk to patient for readmittance to inpatient unit.
[2019-02-12] MEDS: gentamicin 0.1% topical ointment 15gm TP SCH ×2 (08:00→20:00)
[2019-02-12] MEDS: docusate sod 100mg capsule PO SCH ×2 (08:32→20:34)
[2019-02-12] MEDS: vitamin D (cholecalciferol) 1,000 unit tablet PO SCH ×2 (08:32→20:35)
[2019-02-12] MEDS: LORazepam 0.5 MG tablet PO PRN (08:32)
[2019-02-12] MEDS: losartan 50mg tablet PO SCH (08:33)
[2019-02-12] MEDS: pravastatin 40mg tablet PO SCH (08:33)
[2019-02-12] MEDS: [UNRECOGNIZED DRUG - OTHER] PO SCH ×4 (08:34→20:36)
[2019-02-12] MEDS: metoprolol succinate 25mg (24-HOUR) SR. Tablet PO SCH (08:37)
[2019-02-12 08:41] VITALS: BP 134/54
[2019-02-12] MEDS: Estradiol 0.025mg/day patch (1 per week) TD SCH (10:15)
[2019-02-12] MEDS ORDERED: aripiprazole 5mg tablet PO ONE (12:50)
[2019-02-12 13:30] VITALS: BP 115/46
[2019-02-12 15:30] VITALS: BP 135/55
[2019-02-12] MEDS: LORazepam 1 MG tablet PO PRN (15:50)
--- NOTE | 2019-02-12 17:07 | NUR ---
Nursing Progress Note Legal hold: Voluntary Report received from TEETEE Solorio Why are they here: Pt presents as depressed with recent suicidal gesture of getting in her car and starting the ignition with the intent to kill herself. She ended up getting out of the car and letting family know. She presents as hopeless and helpless, downcast expression, speech quiet. A&Ox4. On second week of Nardil 30 mg, titrating up. Sees Dr. Morales outpatient. Assessment: What happened this shift? Patient observed sleeping at change of shift. She joins others for breakfast in the group room. After she walks the halls looking into each doorway. She states that she is not looking for any one or anything and just looking around. She states that she feels anxious and requests Ativan, RN administered. She takes all of her medicaitons without any issue. New estradiol patch applied. She joins others in the group room to color and then returns to her bed to rest. She reports continued depression and not sleeping well at night. She attends group and then leaves early. She paces the james moaning and states she needs an Ativan. RN did not administer, walked and talked with patient. She states she was frustrated with the topic of group discussion, depression. She states that she is tired of being stuck with all her thoughts. Patient is to start Abilify. Doctor requested base vitals prior to administration and q2hr vitals for 2 sets after. Base V/S 1330 115/46, 95%, 69 2nd set 1530 135/55, 95%, 61 3rd set 1730 S/I, H/I: Pt. denies A/VH: Denies ADL's: Independent with prompting. Sleep: 8.25hrs NOC and rested during the day Group attendance: left early Were meds taken: Yes Any med S/E: None reported, none observed. Mental Status Exam Appearance: clean and appropriate for unit. Eye contact: Direct Behavior: cooperative, anxious, frustrated Speech: Soft tone, slow response time Mood: Depressed Affect: Flat Thought process: Linear, patient knew that she needed her weekly patch changed today. When asked if she had written it on a calendar she stated "no" she keeps track in head. Thought Content: WNL, no delusional thought content present Cognition: A/Ox4 Insight: Fair. Judgment: Poor. Interventions PRN's used: Ativan 0.5mg for anxiety Ativan 1mg for anxiety Therapeutic interventions: 1:1 therapeutic assessment, maintained safe therapeutic milieu, provided active listening with positive reinforcement, provided medication administration/education/monitoring as needed; Q15 safety checks. Restraints/seclusion/emergency medication: N/A Justification of Continued Inpatient Treatment : Therapeutic support and medication management needed to provide stabilization, and prevent decompensation decreasing risk to patient for readmittance to inpatient unit.
[2019-02-12 17:30] VITALS: BP 114/61
[2019-02-12 19:55] VITALS: BP 122/50
[2019-02-12] MEDS: Melatonin 3mg tablet PO SCH (20:36)
[2019-02-12] MEDS: psyllium seed 3.4 gm packet PO SCH (20:36)
--- NOTE | 2019-02-12 23:23 | NUR ---
Nursing Progress Note Legal hold: Voluntary Report received from TEETEE Levy Why are they here: Pt presents as depressed with recent suicidal gesture of getting in her car and starting the ignition with the intent to kill herself. She ended up getting out of the car and letting family know. She presents as hopeless and helpless, downcast expression, speech quiet. A&Ox4. On second week of Nardil 30 mg, titrating up. Sees Dr. Morales outpatient. Assessment: What happened this shift? Patient observed sleeping at change of shift. Pt isolates to her room She states she is depressed and feels hopeless. She is Med compliant but very flat. She dose not want to get up and go to snack. She states she was frustrated with the topic of group discussion, depression. She states that she is tired of being stuck with all her thoughts. Patient is to start Abilify. Doctor requested base vitals prior to administration and q2hr vitals for 2 sets after. Base V/S 1330 115/46, 95%, 69 2nd set 1530 135/55, 95%, 61 3rd set 1730 S/I, H/I: Pt. denies A/VH: Denies ADL's: Independent with prompting. Sleep: 8.25hrs NOC and rested during the day Group attendance: left early Were meds taken: Yes Any med S/E: None reported, none observed. Mental Status Exam Appearance: clean and appropriate for unit. Eye contact: Direct Behavior: cooperative, anxious, frustrated Speech: Soft tone, slow response time Mood: Depressed Affect: Flat Thought process: Linear, patient knew that she needed her weekly patch changed today. When asked if she had written it on a calendar she stated "no" she keeps track in head. Thought Content: WNL, no delusional thought content present Cognition: A/Ox4 Insight: Fair. Judgment: Poor. Interventions PRN's used: Ativan 0.5mg for anxiety Ativan 1mg for anxiety Therapeutic interventions: 1:1 therapeutic assessment, maintained safe therapeutic milieu, provided active listening with positive reinforcement, provided medication administration/education/monitoring as needed; Q15 safety checks. Restraints/seclusion/emergency medication: N/A Justification of Continued Inpatient Treatment : Therapeutic support and medication management needed to provide stabilization, and prevent decompensation decreasing risk to patient for readmittance to inpatient unit.
[2019-02-13] MEDS: metoprolol succinate 25mg (24-HOUR) SR. Tablet PO SCH (08:11)
[2019-02-13] MEDS: vitamin D (cholecalciferol) 1,000 unit tablet PO SCH ×2 (08:13→20:40)
[2019-02-13] MEDS: pravastatin 40mg tablet PO SCH (08:13)
[2019-02-13] MEDS: [UNRECOGNIZED DRUG - OTHER] PO SCH ×4 (08:14→20:41)
[2019-02-13] MEDS: docusate sod 100mg capsule PO SCH ×2 (08:14→20:40)
[2019-02-13] MEDS: losartan 50mg tablet PO SCH (08:14)
[2019-02-13] MEDS: gentamicin 0.1% topical ointment 15gm TP SCH ×2 (08:15→20:00)
[2019-02-13 08:47] VITALS: BP 133/71
[2019-02-13] MEDS: magnesium hydroxide 30ml (MOM) UD suspension PO PRN (10:48)
[2019-02-13] MEDS: LORazepam 1 MG tablet PO PRN (13:00)
--- NOTE | 2019-02-13 17:38 | NUR ---
Nursing Progress Note Legal hold: Voluntary Report received from CARLOS Brewer, Why are they here: Pt presents as depressed with recent suicidal gesture of getting in her car and starting the ignition with the intent to kill herself. She ended up getting out of the car and letting family know. She presents as hopeless and helpless, downcast expression, speech quiet. A&Ox4. On second week of Nardil 30 mg, titrating up. Sees Dr. Morales outpatient. Assessment: Patient was sleeping at change of shift and up for breakfast. Patient laid in bed most of the day but went to both groups. Patient states she is very depressed and patient states she doesn't think the Nardil is helping. Patient denies SI/HI/AVH. Patient's daughter brought a CD today of music for patient to listen to but staff was unable to find a CD player. Daughter got upset and took CD back home. Patient isolates in her room. S/I, H/I: Pt. denies A/VH: Denies ADL's: Independent with prompting. Sleep: Lots of sleep during the day. Group attendance: both Were meds taken: Yes Any med S/E: None reported, none observed. Mental Status Exam Appearance: clean and appropriate for unit. Eye contact: Direct Behavior: cooperative, anxious, frustrated Speech: Soft tone, slow response time Mood: Depressed Affect: Flat Thought process: Linearchanged today. Thought Content: WNL, no delusional thought content present Cognition: A/Ox4 Insight: Fair. Judgment: Poor. Interventions PRN's used: Ativan 1mg for anxiety Therapeutic interventions: 1:1 therapeutic assessment, maintained safe therapeutic milieu, provided active listening with positive reinforcement, provided medication administration/education/monitoring as needed; Q15 safety checks. Restraints/seclusion/emergency medication: N/A Justification of Continued Inpatient Treatment : Therapeutic support and medication management needed to provide stabilization, and prevent decompensation decreasing risk to patient for readmittance to inpatient unit.
[2019-02-13 20:00] VITALS: BP 119/87
[2019-02-13] MEDS: Melatonin 3mg tablet PO SCH (20:40)
[2019-02-13] MEDS: psyllium seed 3.4 gm packet PO SCH (20:41)
--- NOTE | 2019-02-13 23:54 | NUR ---
Nursing Progress Note Legal hold: Voluntary Report received from Javed WAGNER. Why are they here: Pt presents as depressed with recent suicidal gesture of getting in her car and starting the ignition with the intent to kill herself. She ended up getting out of the car and letting family know. She presents as hopeless and helpless, downcast expression, speech quiet. A&Ox4. On second week of Nardil 30 mg, titrating up. Sees Dr. Morales outpatient. Assessment: Patient was sleeping at change of shift . Patient states she is very depressed and patient states she doesn't think the Nardil is helping. Patient denies SI/HI/AVH. Patient's daughter brought a CD today of music for patient to listen to but staff was unable to find a CD player. Daughter got upset and took CD back home. Patient isolates in her room. S/I, H/I: Pt. denies A/VH: Denies ADL's: Independent with prompting. Sleep: Lots of sleep during the day. Group attendance: both Were meds taken: Yes Any med S/E: None reported, none observed. Mental Status Exam Appearance: clean and appropriate for unit. Eye contact: Direct Behavior: cooperative, anxious, frustrated Speech: Soft tone, slow response time Mood: Depressed Affect: Flat Thought process: Linearchanged today. Thought Content: WNL, no delusional thought content present Cognition: A/Ox4 Insight: Fair. Judgment: Poor. Interventions PRN's used: Ativan 1mg for anxiety Therapeutic interventions: 1:1 therapeutic assessment, maintained safe therapeutic milieu, provided active listening with positive reinforcement, provided medication administration/education/monitoring as needed; Q15 safety checks. Restraints/seclusion/emergency medication: N/A Justification of Continued Inpatient Treatment : Therapeutic support and medication management needed to provide stabilization, and prevent decompensation decreasing risk to patient for readmittance to inpatient unit.
[2019-02-14] MEDS: metoprolol succinate 25mg (24-HOUR) SR. Tablet PO SCH (07:57)
[2019-02-14] MEDS: losartan 50mg tablet PO SCH (07:57)
[2019-02-14] MEDS: [UNRECOGNIZED DRUG - OTHER] PO SCH ×4 (07:57→20:37)
[2019-02-14] MEDS: pravastatin 40mg tablet PO SCH (07:57)
[2019-02-14] MEDS: docusate sod 100mg capsule PO SCH ×2 (07:58→20:36)
[2019-02-14] MEDS: aripiprazole 5mg tablet PO SCH (07:59)
[2019-02-14] MEDS: vitamin D (cholecalciferol) 1,000 unit tablet PO SCH ×2 (07:59→20:36)
[2019-02-14 08:00] VITALS: BP 123/56
[2019-02-14] MEDS: gentamicin 0.1% topical ointment 15gm TP SCH ×2 (08:00→20:00)
--- NOTE | 2019-02-14 11:23 | NUR ---
Reassessment: Patient is eating well, 75-100% PO intake. Meeting nutrition needs. LBM 02/12, no GI symptoms. Will continue to follow. Recommendations: 1) Advance to regular diet 2) Routine bowel care 3) Wt per rx Addendum: 02/14/19 at [address] Amended: Links added.
--- NOTE | 2019-02-14 13:11 | NUR ---
1:1 - Met with patient in her room, while she was lying down on her bed, immobilized and choosing to miss group. Patient was re-introduced to this therapist, and patient responded "I remember you." Patient, over a period of an hour was able to open up and talk. Various topics of conversation were explored re: patients consistent focus on "I am a nothing, I think something is wrong with my brain, I can't feel anything." Patient was also given the exercise "You have three wishes..." She responded 1. "I wish I were well. 2. I wish I wouldn't feel like this, "the nothing, I feel like I am drugged" and 3. I wish I wasn't here because 'I feel like I'm sinking into nothingness." Further exploration into the "nothingness" revealed patients perception "I am a terrible person." This thought process led to further discloser re: patient's inner secrets which she did explore. Patient was asked what she does in her mind, when she chooses to remain in her bed most of the day. Patient responded "I pray, God I need help, please touch me." Patient also expressed that she knew she was "forgiven, but I can't forgive myself." This therapist and patient were able to shift some of her negativity into a willingness to "visualize and see her beliefs through imagery, "the light, filling the nothingness." As this patient was talking, she at times would say something that sounded like a song.... 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 Patient was able to respond to music/memories and reflective visualization. Lory Guevara MA, SCANNING MANAGER #[id number] [facility]rap[facility] Addendum: 02/14/19 at 1334 by Lory Guevara SS Amended: Links added.
--- NOTE | 2019-02-14 16:05 | NUR ---
Nursing Progress Note Legal hold: Voluntary Report received from CARLOS Brewer, Why are they here: Pt presents as depressed with recent suicidal gesture of getting in her car and starting the ignition with the intent to kill herself. She ended up getting out of the car and letting family know. She presents as hopeless and helpless, downcast expression, speech quiet. A&Ox4. On second week of Nardil 30 mg, titrating up. Sees Dr. Morales outpatient. Assessment: Patient was sleeping at change of shift and up for breakfast. Patient laid in bed most of the day but went to both groups. Patient initially refused all her morning meds and doesn't believe any of the medication is helping her. Patient feels helpless and hopeless. RN convinced patient to take medication and took morning and afternoon. Patient wants to speak with the her doctor about patient feeling she is not getting better. Patient has a depressed affect. Patient is not social and isolates. S/I, H/I: Pt. denies A/VH: Denies ADL's: Independent with prompting. Sleep: Lots of sleep during the day. Group attendance: both Were meds taken: Yes Any med S/E: None reported, none observed. Mental Status Exam Appearance: clean and appropriate for unit. Eye contact: Direct Behavior: cooperative, anxious, frustrated Speech: Soft tone, slow response time Mood: Depressed Affect: Flat Thought process: Linear Thought Content: WNL, no delusional thought content present, hopeless Cognition: A/Ox4 Insight: Fair. Judgment: Poor. Interventions PRN's used: none Therapeutic interventions: 1:1 therapeutic assessment, maintained safe therapeutic milieu, provided active listening with positive reinforcement, provided medication administration/education/monitoring as needed; Q15 safety checks. Restraints/seclusion/emergency medication: N/A Justification of Continued Inpatient Treatment : Therapeutic support and medication management needed to provide stabilization, and prevent decompensation decreasing risk to patient for readmittance to inpatient unit.
[2019-02-14] MEDS: LORazepam 1 MG tablet PO PRN (17:27)
[2019-02-14 20:00] VITALS: BP 112/64
[2019-02-14] MEDS: Melatonin 3mg tablet PO SCH (20:36)
[2019-02-14] MEDS: psyllium seed 3.4 gm packet PO SCH (20:40)
--- NOTE | 2019-02-14 22:17 | NUR ---
Nursing Progress Note Legal hold: Voluntary Report received from CARLOS Barth, Why are they here: Pt presents as depressed with recent suicidal gesture of getting in her car and starting the ignition with the intent to kill herself. She ended up getting out of the car and letting family know. She presents as hopeless and helpless, downcast expression, speech quiet. A&Ox4. On second week of Nardil 30 mg, titrating up. Sees Dr. Morales outpatient. Assessment: Patient was sleeping at change of shift and isolates . Patient sleeping most of shift Med compliant . Patient initially refused all her meds and then took them and states I don't believe any of the medication is helping her. Patient feels helpless and hopeless. Patient wants to speak with the her doctor about patient feeling she is not getting better. Patient has a depressed affect. Patient is not social and isolates. S/I, H/I: Pt. denies A/VH: Denies ADL's: Independent with prompting. Sleep: Lots of sleep during the day. Group attendance: both Were meds taken: Yes Any med S/E: None reported, none observed. Mental Status Exam Appearance: clean and appropriate for unit. Eye contact: Direct Behavior: cooperative, anxious, frustrated Speech: Soft tone, slow response time Mood: Depressed Affect: Flat Thought process: Linear Thought Content: WNL, no delusional thought content present, hopeless Cognition: A/Ox4 Insight: Fair. Judgment: Poor. Interventions PRN's used: none Therapeutic interventions: 1:1 therapeutic assessment, maintained safe therapeutic milieu, provided active listening with positive reinforcement, provided medication administration/education/monitoring as needed; Q15 safety checks. Restraints/seclusion/emergency medication: N/A Justification of Continued Inpatient Treatment : Therapeutic support and medication management needed to provide stabilization, and prevent decompensation decreasing risk to patient for readmittance to inpatient unit.
[2019-02-15] MEDS: metoprolol succinate 25mg (24-HOUR) SR. Tablet PO SCH (07:31)
[2019-02-15] MEDS: aripiprazole 5mg tablet PO SCH (07:31)
[2019-02-15] MEDS: vitamin D (cholecalciferol) 1,000 unit tablet PO SCH ×2 (07:31→20:42)
[2019-02-15] MEDS: docusate sod 100mg capsule PO SCH ×2 (07:32→20:41)
[2019-02-15] MEDS: losartan 50mg tablet PO SCH (07:32)
[2019-02-15 07:42] VITALS: BP 124/44
[2019-02-15] MEDS: gentamicin 0.1% topical ointment 15gm TP SCH ×2 (08:00→20:00)
[2019-02-15] MEDS: [UNRECOGNIZED DRUG - OTHER] PO SCH ×4 (08:00→20:39)
[2019-02-15] MEDS: pravastatin 40mg tablet PO SCH (08:27)
[2019-02-15] MEDS ORDERED: PHENELZINE 15 MG PO SCH (14:25)
[2019-02-15] MEDS ORDERED: PHENELZINE 15 MG PO ONE (14:45)
--- NOTE | 2019-02-15 15:02 | NUR ---
Nursing Progress Note: [place] Legal hold: Voluntary Report received from Associate Product Manager RN Lead. Why are they here: Pt presents as depressed with recent suicidal gesture of getting in her car and starting the ignition with the intent to kill herself. She ended up getting out of the car and letting family know. She presents as hopeless and helpless, downcast expression, speech quiet. A&Ox4. On second week of Nardil 30 mg, titrating up. Sees Dr. Morales outpatient. Assessment: Client was resting in bed with eyes closed and even, unlabored respirations noted. Client had a low pulse this am with vital signs. Recheck of pulse was 74 prior to giving am medications. Client refused Nardil as well as Gentamycin ointment. She claims the Nardil, "does not work". Client has been visible on unit walking in hallway but also has taken several, "rest periods" in which she returns to her bed to lay down. Client was convinced to re-start her Nardil. Order obtained from Dr. Longoria and med given without problem. Client has been compliant with all aspects of care. S/I, H/I: Pt. denies A/VH: Denies ADL's: Independent with prompting. Sleep: Group attendance: yes Were meds taken: Refused Nardil and Gentamycin ointment this am. Any med S/E: None reported, none observed. Mental Status Exam Appearance: clean and appropriate for unit. Eye contact: Direct Behavior: cooperative, anxious, frustrated Speech: Soft tone, slow response time Mood: Depressed Affect: Flat Thought process: Linear Thought Content: WNL, no delusional thought content present, hopeless Cognition: A/Ox4 Insight: Fair. Judgment: Poor. Interventions PRN's used: none Therapeutic interventions: 1:1 therapeutic assessment, maintained safe therapeutic milieu, provided active listening with positive reinforcement, provided medication administration/education/monitoring as needed; Q15 safety checks. Restraints/seclusion/emergency medication: N/A Justification of Continued Inpatient Treatment : Therapeutic support and medication management needed to provide stabilization, and prevent decompensation decreasing risk to patient for readmittance to inpatient unit.
[2019-02-15] MEDS: Melatonin 3mg tablet PO SCH (20:41)
[2019-02-15] MEDS: psyllium seed 3.4 gm packet PO SCH (21:05)
[2019-02-15] MEDS: LORazepam 1 MG tablet PO PRN (21:39)
--- NOTE | 2019-02-16 00:16 | NUR ---
Nursing Progress Note Legal hold: Voluntary Report received from Chapo KINGLSEY, Why are they here: Pt presents as depressed with recent suicidal gesture of getting in her car and starting the ignition with the intent to kill herself. She ended up getting out of the car and letting family know. She presents as hopeless and helpless, downcast expression, speech quiet. A&Ox4. On second week of Nardil 30 mg, titrating up. Sees Dr. Morales outpatient. Assessment: Patient laying in bed asleep at the beginning of shift. Continues to isolate. Compliant with all medication. PRN lorazepam provided upon request for agitation. Patient complaint with physical assessment but didn't want to communicate much. This fha underwriter asked how her day went and she stated "not good." This fha underwriter than asked her why she felt it wasn't a good day and she responded, "depressed." all further questions patient stared blankly and would not respond. S/I, H/I: Denies A/VH: Denies ADL's: Independent with prompting. Sleep: Asleep at this time. Group attendance: no. Were meds taken: Yes Any med S/E: None reported, none observed. Mental Status Exam Appearance: clean and appropriate for unit. Eye contact: Direct Behavior: cooperative, agitated Speech: Soft tone, delayed response Mood: Depressed Affect: Flat Thought process: Linear Thought Content: depression and wanting to sleep Cognition: A/Ox4 Insight: Fair. Judgment: Poor. Interventions PRN's used: lorazepam for agitation, effective Therapeutic interventions: 1:1 therapeutic assessment, maintained safe therapeutic milieu, provided active listening with positive reinforcement, provided medication administration/education/monitoring as needed; Q15 safety checks. Restraints/seclusion/emergency medication: N/A Justification of Continued Inpatient Treatment : Therapeutic support and medication management needed to provide stabilization, and prevent decompensation decreasing risk to patient for readmittance to inpatient unit.
[2019-02-16 07:46] VITALS: BP 122/40
[2019-02-16] MEDS: [UNRECOGNIZED DRUG - OTHER] PO SCH ×4 (07:58→21:16)
[2019-02-16] MEDS: metoprolol succinate 25mg (24-HOUR) SR. Tablet PO SCH (07:58)
[2019-02-16] MEDS: losartan 50mg tablet PO SCH (07:58)
[2019-02-16] MEDS: pravastatin 40mg tablet PO SCH (07:58)
[2019-02-16] MEDS: docusate sod 100mg capsule PO SCH ×2 (07:58→21:15)
[2019-02-16] MEDS: vitamin D (cholecalciferol) 1,000 unit tablet PO SCH ×2 (07:58→21:16)
[2019-02-16] MEDS: aripiprazole 5mg tablet PO SCH (07:58)
[2019-02-16] MEDS: gentamicin 0.1% topical ointment 15gm TP SCH ×2 (07:59→20:00)
[2019-02-16] MEDS: LORazepam 0.5 MG tablet PO PRN (13:22)
--- NOTE | 2019-02-16 14:01 | NUR ---
Nursing Progress Note Legal hold: Voluntary Report received from Teresa WAGNER. Why are they here: Pt presents as depressed with recent suicidal gesture of getting in her car and starting the ignition with the intent to kill herself. She ended up getting out of the car and letting family know. She presents as hopeless and helpless, downcast expression, speech quiet. A&Ox4. On second week of Nardil 30 mg, titrating up. Sees Dr. Morales outpatient. Assessment: What happened today? Jade awakened for medications and breakfast. Compliant with medications. Pt. went to group and apparently walked out because they were discussing feeling like being a burden to others. Pt. states that her depression and anxiety are a 10/10. She reports that she does not feel any better since admission. Reports that she does not want to talk. S/I, H/I: Pt. denies A/VH: Denies ADL's: Independent with prompting. Sleep: 8.75 hrs noc. napped during day. Group attendance: yes Were meds taken: Yes Any med S/E: None reported, none observed. Mental Status Exam Appearance: clean and appropriate for unit. Eye contact: Direct Behavior: cooperative, anxious, frustrated Speech: Soft tone, slow response time Mood: Depressed Affect: Flat Thought process: Linear Thought Content: Depression and hopelessness. Cognition: A/Ox4 Insight: Fair. Judgment: Poor. Interventions PRN's used: Ativan Therapeutic interventions: 1:1 therapeutic assessment, maintained safe therapeutic milieu, provided active listening with positive reinforcement, provided medication administration/education/monitoring as needed; Q15 safety checks. Restraints/seclusion/emergency medication: N/A Justification of Continued Inpatient Treatment : Therapeutic support and medication management needed to provide stabilization, and prevent decompensation decreasing risk to patient for readmittance to inpatient unit.
[2019-02-16 20:00] VITALS: BP 113/52
[2019-02-16] MEDS: psyllium seed 3.4 gm packet PO SCH (21:13)
[2019-02-16] MEDS: Melatonin 3mg tablet PO SCH (21:15)
[2019-02-16] MEDS: LORazepam 1 MG tablet PO PRN (21:16)
--- NOTE | 2019-02-16 23:16 | NUR ---
Nursing Progress Note Legal hold: Voluntary Report received from KRISTY Bosch with [employer] Why are they here: Pt presents as depressed with recent suicidal gesture of getting in her car and starting the ignition with the intent to kill herself. She ended up getting out of the car and letting family know. She presents as hopeless and helpless, downcast expression, speech quiet. A&Ox4. On second week of Nardil 30 mg, titrating up. Sees Dr. Morales outpatient. Assessment: What happened this shift: Pt was sleeping at shift change no acute distress noted. Pt had to be woken up for HS medications and 1:1 assessment. Pt requested a PRN Ativan with scheduled meds. Pt understands why she is here. Pt states "I don't feel like I am getting any better." When asked if she wants to live pt just stared at RN. Pt did contract for safety while she is here. Pt doesn't' see her self getting better. Pt reports she has a good support system in [facility] where she lives. Pt states "I am just depressed." Reports depression 04/27. Pt denies A/VH. S/I, H/I: Pt answers all questions except for questions regarding SI. A/VH: Pt denies. None observed. ADL's: Independent with prompting. Sleep: Currently sleeping. See sleep assessment notation. Group attendance: No evening groups Were meds taken: Medication compliant Any med S/E: None reported, none observed. Mental Status Exam Appearance: Clean, neat, wearing make up, green scrubs and a Tommy jacket. Eye contact: Direct Behavior: Cooperative, sleepy, isolative Speech: Soft tone, delayed response Mood: Depressed, hopeless Affect: Flat Thought process: Linear Thought Content: "I don't feel like I am getting better" Cognition: A/Ox4 Insight: Fair Judgment: Poor Interventions PRN's used: Ativan Therapeutic interventions: 1:1 therapeutic assessment, maintained safe therapeutic milieu, provided active listening with positive reinforcement, provided medication administration/education/monitoring as needed; Q15 safety checks. Restraints/seclusion/emergency medication: N/A Justification of Continued Inpatient Treatment: Therapeutic support and medication management needed to provide stabilization, and prevent decompensation decreasing risk to patient for readmittance to inpatient unit.
[2019-02-17 07:00] VITALS: BP 117/47
[2019-02-17] MEDS: aripiprazole 5mg tablet PO SCH (07:55)
[2019-02-17] MEDS: [UNRECOGNIZED DRUG - OTHER] PO SCH ×4 (07:55→20:24)
[2019-02-17] MEDS: docusate sod 100mg capsule PO SCH (07:55)
[2019-02-17] MEDS: metoprolol succinate 25mg (24-HOUR) SR. Tablet PO SCH (07:55)
[2019-02-17] MEDS: vitamin D (cholecalciferol) 1,000 unit tablet PO SCH ×2 (07:55→20:24)
[2019-02-17] MEDS: gentamicin 0.1% topical ointment 15gm TP SCH ×2 (07:56→20:00)
[2019-02-17] MEDS: pravastatin 40mg tablet PO SCH (07:56)
[2019-02-17] MEDS: losartan 50mg tablet PO SCH (07:56)
--- NOTE | 2019-02-17 13:16 | NUR ---
Nursing Progress Note Legal hold: Voluntary Report received from Teresa WAGNER. Why are they here: Pt presents as depressed with recent suicidal gesture of getting in her car and starting the ignition with the intent to kill herself. She ended up getting out of the car and letting family know. She presents as hopeless and helpless, downcast expression, speech quiet. A&Ox4. On second week of Nardil 30 mg, titrating up. Sees Dr. Morales outpatient. Assessment: What happened today? Patient up for medications and breakfast. During 1:1 in room, patient states that she does not want to go to group as she feels that she has nothing to offer. Patient states that she "feels inside", and that she "just wants to lay here and ". Her depression is 10/10. Patient walked the halls twice. S/I, H/I: Positive as above. A/VH: Denies ADL's: Independent with prompting. Sleep: 8.75 hrs noc. napped during day. Group attendance: No. Were meds taken: Yes Any med S/E: None reported, none observed. Mental Status Exam Appearance: Clean, dressed in scrubs with christine jacket. Eye contact: Direct Behavior: cooperative, anxious, frustrated Speech: Soft tone, slow response time Mood: Depressed Affect: Flat Thought process: Linear Thought Content: Depression and hopelessness. Cognition: A/Ox4 Insight: Fair. Judgment: Poor. Interventions PRN's used: Therapeutic interventions: 1:1 therapeutic assessment, maintained safe therapeutic milieu, provided active listening with positive reinforcement, provided medication administration/education/monitoring as needed; Q15 safety checks. Restraints/seclusion/emergency medication: N/A Justification of Continued Inpatient Treatment : Therapeutic support and medication management needed to provide stabilization, and prevent decompensation decreasing risk to patient for readmittance to inpatient unit.
[2019-02-17] MEDS: LORazepam 1 MG tablet PO PRN (13:41)
[2019-02-17 19:51] VITALS: BP 118/70
[2019-02-17] MEDS: Melatonin 3mg tablet PO SCH (20:24)
[2019-02-17] MEDS: psyllium seed 3.4 gm packet PO SCH (21:17)
--- NOTE | 2019-02-18 00:05 | NUR ---
Nursing Progress Note Legal hold: Voluntary Report received from Danitza KINGSLEY. Why are they here: Pt presents as depressed with recent suicidal gesture of getting in her car and starting the ignition with the intent to kill herself. She ended up getting out of the car and letting family know. She presents as hopeless and helpless, downcast expression, speech quiet. A&Ox4. On second week of Nardil 30 mg, titrating up. Sees Dr. Morales outpatient. Assessment: What happened today? Patient laying in bed at the beginning of shift where she has remained. Continues to constrict herself in conversation by giving one to two word answers. When this story writer asked how her day was she stated "not good." When asked what made her day not good she replied "oh, I don't know." This story writer proceeded to ask if she felt depressed and she stated "yes." she denies having harmful thought s toward herself and others. Patient complaint for medications and physical assessment. Went back to sleep shortly after. S/I, H/I: denied A/VH: denied ADL's: Independent with prompting. Sleep: asleep at this time Group attendance: No. Were meds taken: Yes Any med S/E: None reported, none observed. Mental Status Exam Appearance: Clean, dressed in scrubs with christine jacket. Eye contact: Direct Behavior: isolative Speech: slow, clear, soft Mood: Depressed Affect: Flat Thought process: Linear Thought Content: depression. Cognition: A/Ox4 Insight: Fair. Judgment: Poor. Interventions PRN's used: none at this time Therapeutic interventions: 1:1 therapeutic assessment, maintained safe therapeutic milieu, provided active listening with positive reinforcement, provided medication administration/education/monitoring as needed; Q15 safety checks. Restraints/seclusion/emergency medication: N/A Justification of Continued Inpatient Treatment : Therapeutic support and medication management needed to provide stabilization, and prevent decompensation decreasing risk to patient for readmittance to inpatient unit.
[2019-02-18 07:41] VITALS: BP 117/42
[2019-02-18] MEDS: metoprolol succinate 25mg (24-HOUR) SR. Tablet PO SCH (08:00)
[2019-02-18] MEDS: gentamicin 0.1% topical ointment 15gm TP SCH ×2 (08:00→20:00)
[2019-02-18] MEDS: [UNRECOGNIZED DRUG - OTHER] PO SCH ×4 (08:18→20:29)
[2019-02-18] MEDS: vitamin D (cholecalciferol) 1,000 unit tablet PO SCH ×2 (08:19→20:28)
[2019-02-18] MEDS: losartan 50mg tablet PO SCH (08:19)
[2019-02-18] MEDS: pravastatin 40mg tablet PO SCH (08:19)
[2019-02-18] MEDS: aripiprazole 5mg tablet PO SCH (08:19)
[2019-02-18] MEDS: LORazepam 1 MG tablet PO PRN ×2 (11:51→20:40)
[2019-02-18 20:00] VITALS: BP 114/43
[2019-02-18] MEDS: Melatonin 3mg tablet PO SCH (20:27)
[2019-02-18] MEDS: metoprolol tartrate 12.5mg (1/2 tablet) PO SCH (20:27)
[2019-02-18] MEDS: psyllium seed 3.4 gm packet PO SCH (20:28)
--- NOTE | 2019-02-19 02:10 | NUR ---
Nursing Progress Note Legal hold: Voluntary Report received using [employer] from TEETEE Bosch. Why are they here: Pt presents as depressed with recent suicidal gesture of getting in her car and starting the ignition with the intent to kill herself. She ended up getting out of the car and letting family know. She presents as hopeless and helpless, downcast expression, speech quiet. A&Ox4. Sees Dr. Morales outpatient. Assessment: What happened today? Pt sleeping at change of shift. She was compliant with medication administration. Cooperative with assessment. She reports feeing depressed and anxious. She has passive SI saying that she thinks she would be a danger to herself if she were not here. She denies A/VH. In the morning she had a flat affect, but later in the day she was seen with a small smile. She shared that deep breathing and exercise help her cope with her feelings. She indicated she slept well during the night. The pt napped various times throughout the day. She attended 1/2 of the morning group. Following the morning group, she experienced increasing anxiety and Ativan was administered. The pt did not attend the afternoon group. Pt required encouragement to walk in the hallway and get up for lunch. S/I, H/I: Passive SI A/VH: Denies ADL's: Independent with prompting. Sleep: Said she slept well at night and napped during the day Group attendance: Partial morning group Were meds taken: Yes Any med S/E: None reported, none observed. Mental Status Exam Appearance: Neat and clean Eye contact: Direct Behavior: Cooperative Speech: Soft speech Mood: Depressed Affect: Flat Thought process: Linear Thought Content: Hopeless regarding her depression Cognition: A/Ox4 Insight: Fair. Judgment: Poor. Interventions PRN's used: Ativan Therapeutic interventions: Establish therapeutic relationship, perform 1:1 assessment, provided active listening, medication education, administration, and monitoring for effects, maintained therapeutic milieu, Q15 min safety checks. Restraints/seclusion/emergency medication: N/A Justification of Continued Inpatient Treatment : Therapeutic support and medication management needed to provide stabilization, and prevent decompensation decreasing risk to patient for readmittance to inpatient unit.Why are they here: Pt presents as depressed with recent suicidal gesture of getting in her car and starting the ignition with the intent to kill herself. She ended up getting out of the car and letting family know. She presents as hopeless and helpless, downcast expression, speech quiet. A&Ox4. Sees Dr. Morales outpatient.
[2019-02-19 07:40] VITALS: BP 118/41
[2019-02-19] MEDS: metoprolol tartrate 12.5mg (1/2 tablet) PO SCH ×2 (08:00→20:56)
[2019-02-19] MEDS: losartan 50mg tablet PO SCH (08:00)
[2019-02-19] MEDS: pravastatin 40mg tablet PO SCH (08:08)
[2019-02-19] MEDS: vitamin D (cholecalciferol) 1,000 unit tablet PO SCH ×2 (08:08→20:55)
[2019-02-19] MEDS: gentamicin 0.1% topical ointment 15gm TP SCH ×2 (08:09→20:55)
[2019-02-19] MEDS: aripiprazole 5mg tablet PO SCH (08:09)
[2019-02-19] MEDS: Estradiol 0.025mg/day patch (1 per week) TD SCH (08:10)
[2019-02-19] MEDS: [UNRECOGNIZED DRUG - OTHER] PO SCH ×4 (08:14→20:55)
--- NOTE | 2019-02-19 14:03 | NUR ---
Nursing Progress Note Legal hold: Voluntary Report received using [facility] from TEETEE Campbell. Why are they here: Pt presents as depressed with recent suicidal gesture of getting in her car and starting the ignition with the intent to kill herself. She ended up getting out of the car and letting family know. She presents as hopeless and helpless, downcast expression, speech quiet. A&Ox4. Sees Dr. Morales outpatient. Assessment: What happened today? Patient awake for breakfast and medications. Walked the james and took a shower today. After coming back from shower, patient states "I can't do this any longer". Patient remains passively suicidal regarding her depression. She does not believe that the increase in Nardil has been effective in treating depression. S/I, H/I: Passive SI A/VH: Denies ADL's: Independent with prompting. Sleep: 9.5 with naps during day. Group attendance: No. Were meds taken: Yes Any med S/E: None reported, none observed. Mental Status Exam Appearance: Neat and clean Eye contact: Direct Behavior: Cooperative, pleasant Speech: Soft speech Mood: Depressed Affect: Flat Thought process: Linear Thought Content: Hopeless regarding her depression Cognition: A/Ox4 Insight: Fair. Judgment: Poor. Interventions PRN's used: Therapeutic interventions: Continue therapeutic relationship, perform 1:1 assessment, provided active listening, medication education, administration, and monitoring for effects, maintained therapeutic milieu, Q15 min safety checks. Restraints/seclusion/emergency medication: N/A Justification of Continued Inpatient Treatment : Therapeutic support and medication management needed to provide stabilization, and prevent decompensation decreasing risk to patient for readmittance to inpatient unit.
[2019-02-19] MEDS: LORazepam 1 MG tablet PO PRN (17:55)
[2019-02-19 19:22] VITALS: BP 126/62
[2019-02-19] MEDS: psyllium seed 3.4 gm packet PO SCH (20:56)
[2019-02-19] MEDS: Melatonin 3mg tablet PO SCH (20:56)
--- NOTE | 2019-02-20 03:53 | NUR ---
Nursing Progress Note Legal hold: Voluntary Report received using [employer] from TEETEE Bosch. Why are they here: Pt presents as depressed with recent suicidal gesture of getting in her car and starting the ignition with the intent to kill herself. She ended up getting out of the car and letting family know. She presents as hopeless and helpless, downcast expression, speech quiet. A&Ox4. Sees Dr. Morales outpatient. Assessment: What happened this shift: The patient was found in her bed at shift change. The patient was sleeping when her room was entered for 1:1. She reluctantly agreed to sit on the side of her bed. This patient presents as depressed, hopeless, and helpless. She would only answer one or two word answers with no further information. "I'm tired, just let me go back to sleep." She was left to go back to sleep. The patient had to be woken for med pass, and sat on the edge of her bed. When asked if she felt the medication might be helping, "no." She was compliant and has been asleep all night. S/I, H/I: Passive. A/VH: Denies ADL's: Independent with prompting. Sleep: Asleep since HS med pass. Group attendance: No groups at night. Were meds taken: Yes Any med S/E: None reported, none observed. Mental Status Exam Appearance: Disheveled, odorous, lady wearing full green scrubs. Eye contact: Direct Behavior: Cooperative, vague, sleepy. Speech: Soft tone, poverty. Mood: Depressed Affect: Flat Thought process: Linear Thought Content: Hopeless regarding her depression Cognition: A/Ox4 Insight: Fair. Judgment: Poor. Interventions PRN's used: Therapeutic interventions: Continue therapeutic relationship, perform 1:1 assessment, provided active listening, medication education, administration, and monitoring for effects, maintained therapeutic milieu, Q15 min safety checks. Restraints/seclusion/emergency medication: N/A Justification of Continued Inpatient Treatment : Therapeutic support and medication management needed to provide stabilization, and prevent decompensation decreasing risk to patient for readmittance to inpatient unit.
[2019-02-20 07:40] VITALS: BP 117/43
[2019-02-20] MEDS: [UNRECOGNIZED DRUG - OTHER] PO SCH ×4 (08:10→20:34)
[2019-02-20] MEDS: metoprolol tartrate 12.5mg (1/2 tablet) PO SCH ×2 (08:11→20:00)
[2019-02-20] MEDS: vitamin D (cholecalciferol) 1,000 unit tablet PO SCH ×2 (08:12→20:33)
[2019-02-20] MEDS: aripiprazole 5mg tablet PO SCH (08:12)
[2019-02-20] MEDS: pravastatin 40mg tablet PO SCH (08:13)
[2019-02-20] MEDS: losartan 50mg tablet PO SCH (08:13)
[2019-02-20] MEDS: gentamicin 0.1% topical ointment 15gm TP SCH ×2 (08:14→20:34)
--- NOTE | 2019-02-20 16:31 | NUR ---
Nursing Progress Note Legal hold: Voluntary Report received using [facility] from TEETEE Moore. Why are they here: Pt presents as depressed with recent suicidal gesture of getting in her car and starting the ignition with the intent to kill herself. She ended up getting out of the car and letting family know. She presents as hopeless and helpless, downcast expression, speech quiet. A&Ox4. Sees Dr. Morales outpatient. Assessment: What happened today? The patient was asleep at change of shift. She had to be awakened for breakfast, got up and ate with her peers. Depressed and flat. Walks in hallway after breakfast. Medication compliant, required no prn's. Daughter came for long visit. Daughter was rubbing patient's back and being kind and attentive to patient. Patient remains with passive suicidal thoughts and shows no real improvement in mood. Eating well. S/I, H/I: Passive SI A/VH: Denies ADL's: Independent with prompting. Sleep: 9.5 with naps during day. Group attendance: Yes Were meds taken: Yes Any med S/E: None reported, none observed. Mental Status Exam Appearance: Neat and clean Eye contact: Direct Behavior: Cooperative, pleasant Speech: Soft speech Mood: Depressed Affect: Flat Thought process: Linear Thought Content: Hopeless regarding her depression Cognition: A/Ox4 Insight: Fair. Judgment: Poor. Interventions PRN's used: None Therapeutic interventions: Continue therapeutic relationship, perform 1:1 assessment, provided active listening, medication education, administration, and monitoring for effects, maintained therapeutic milieu, Q15 min safety checks. Restraints/seclusion/emergency medication: N/A Justification of Continued Inpatient Treatment : Therapeutic support and medication management needed to provide stabilization, and prevent decompensation decreasing risk to patient for readmittance to inpatient unit.
[2019-02-20 20:09] VITALS: BP 109/51
[2019-02-20] MEDS: Melatonin 3mg tablet PO SCH (20:34)
[2019-02-20] MEDS: psyllium seed 3.4 gm packet PO SCH (20:34)
[2019-02-20] MEDS: LORazepam 1 MG tablet PO PRN (20:39)
[2019-02-20] MEDS: docusate sod 100mg capsule PO PRN (20:39)
--- NOTE | 2019-02-21 00:30 | NUR ---
Nursing Progress Note Legal hold: Voluntary Report received using [facility] from TEETEE Bosch. Why are they here: Pt presents as depressed with recent suicidal gesture of getting in her car and starting the ignition with the intent to kill herself. She ended up getting out of the car and letting family know. She presents as hopeless and helpless, downcast expression, speech quiet. A&Ox4. Sees Dr. Morales outpatient. Assessment: What happened this shift: The patient was found in her bed at shift change laying in the dark. When asked how her day went she replied, "not good at all." "I am really depressed." She rates her depression at 10/10. When asked if she was suicidal she replies, " I am a little bit." She says her plan would be to "sit in the car with the engine on." "But when I think about doing that it makes me feel sad." She feels like she has not gotten any better since she has been here. Sulfide Head Operator asks what she thinks would help improve her situation and she replies, "I don't know, the doctor is adjusting my medication so maybe that will help." Pt was encouraged to attend groups and utilize the program here, she verbalized understanding. She is medication compliant. She requested her PRN ativan and colace which was given. S/I, H/I: Passive A/VH: Denies ADL's: Independent with prompting. Sleep: Asleep since HS med pass. Group attendance: No groups at night. Were meds taken: Yes Any med S/E: None reported, none observed. Mental Status Exam Appearance: Disheveled Eye contact: Direct Behavior: Cooperative, vague Speech: Soft, sparse Mood: Depressed Affect: Flat Thought process: Linear Thought Content: Hopeless regarding her depression Cognition: A/Ox4 Insight: Fair. Judgment: Poor. Interventions PRN's used: Therapeutic interventions: Continue therapeutic relationship, perform 1:1 assessment, provided active listening, medication education, administration, and monitoring for effects, maintained therapeutic milieu, Q15 min safety checks. Restraints/seclusion/emergency medication: N/A Justification of Continued Inpatient Treatment : Therapeutic support and medication management needed to provide stabilization, and prevent decompensation decreasing risk to patient for
[2019-02-21 07:29] VITALS: BP 108/43
[2019-02-21] MEDS: [UNRECOGNIZED DRUG - OTHER] PO SCH ×4 (07:47→20:58)
[2019-02-21] MEDS: aripiprazole 5mg tablet PO SCH (07:48)
[2019-02-21] MEDS: vitamin D (cholecalciferol) 1,000 unit tablet PO SCH ×2 (07:48→20:57)
[2019-02-21] MEDS: pravastatin 40mg tablet PO SCH (07:48)
[2019-02-21] MEDS: metoprolol tartrate 12.5mg (1/2 tablet) PO SCH ×2 (07:48→20:00)
[2019-02-21] MEDS: losartan 50mg tablet PO SCH (07:48)
[2019-02-21] MEDS: gentamicin 0.1% topical ointment 15gm TP SCH ×2 (08:00→20:00)
[2019-02-21] MEDS ORDERED: ibuprofen 200mg tablet PO PRN (08:10)
[2019-02-21] MEDS: docusate sod 100mg capsule PO PRN ×2 (08:45→20:57)
--- NOTE | 2019-02-21 10:00 | NUR ---
Nursing Note: Pt reports pain 8/10 in L thumb, states it is arthritis. Notified Dr. Law, received order for 200 mg ibuprofen TID PRN. Pt's GFR is 46, concern for renal function. Per Dr. Law use minimal amount of ibuprofen. Will continue to monitor.
--- NOTE | 2019-02-21 12:27 | NUR ---
Reassessment: Patient is eating well, 75-100% PO intake. Meeting nutrition needs. [facility] 02/20. No nutrition concerns at this time. Recommendations: 1) Advance to regular diet 2) Routine bowel care 3) Wt per rx Addendum: 02/21/19 at [address] Amended: Links added.
[2019-02-21] MEDS ORDERED: VOLTAREN TOP PRN (13:45)
[2019-02-21] MEDS ORDERED: DICLOFENAC TP (13:50)
--- NOTE | 2019-02-21 14:15 | NUR ---
Nursing Progress Note Legal hold: Voluntary Report received using SBAR from TEETEE Rojas. Why are they here: Pt presents as depressed with recent suicidal gesture of getting in her car and starting the ignition with the intent to kill herself. She ended up getting out of the car and letting family know. She presents as hopeless and helpless, downcast expression, speech quiet. A&Ox4. Sees Dr. Morales outpatient. Assessment: What happened today? The patient was sleeping at the change of shift. She was compliant with medication administration and cooperative with assessment. Pt continues to report depression and anxiety. She said she feels suicidal on and off, but did not share her plan. Her affect was flat. She isolated and stayed in her room for much of the day. She was up to the group room for meals, but returned to her room immediately after meals. She briefly walked in the halls. Pt attended the afternoon group. Ibuprofen administered for pt's 8/10 pain in her L thumb. Due to pt's GFR of 46, ibuprofen discontinued. Dr. Longoria ordered lidocaine ointment for pt's hand pain. S/I, H/I: Passive SI A/VH: Denies ADL's: Independent with prompting. Sleep: Napped during the day Group attendance: Attended afternoon group Were meds taken: Yes Any med S/E: None reported, none observed. Mental Status Exam Appearance: Neat and clean, dressed in green scrubs Eye contact: Direct Behavior: Cooperative Speech: Normal rate and rhythm Mood: Depressed Affect: Flat Thought process: Linear and connected Thought Content: Talked about her L thumb pain Cognition: A/Ox4 Insight: Fair. Judgment: Fair Interventions PRN's used: Ibuprofen Therapeutic interventions: Continue therapeutic relationship, perform 1:1 assessment, provided active listening, medication education, administration, and monitoring for effects, maintained therapeutic milieu, Q15 min safety checks. Restraints/seclusion/emergency medication: N/A Justification of Continued Inpatient Treatment: Therapeutic support and medication management needed to provide stabilization, and prevent decompensation decreasing risk to patient for readmittance to inpatient unit.
[2019-02-21] MEDS: LIDOCAINE 5% OINTMENT 35GM TP PRN (17:41)
[2019-02-21 19:51] VITALS: BP 107/50
[2019-02-21] MEDS: LORazepam 1 MG tablet PO PRN (20:57)
[2019-02-21] MEDS: Melatonin 3mg tablet PO SCH (20:59)
[2019-02-21] MEDS: psyllium seed 3.4 gm packet PO SCH (21:00)
--- NOTE | 2019-02-22 00:51 | NUR ---
Nursing Progress Note Legal hold: Voluntary Report received using SBAR from TEETEE Bosch. Why are they here: Pt presents as depressed with recent suicidal gesture of getting in her car and starting the ignition with the intent to kill herself. She ended up getting out of the car and letting family know. She presents as hopeless and helpless, downcast expression, speech quiet. A&Ox4. Sees Dr. Morales outpatient. Assessment: What happened this shift: Pt lays in bed the entirety of she shift in the dark with her eye closed and a blanket pulled up to her chest. She does not come out of her room one time. Twister Tender Paper encourages pt to come out of the room and maybe walk around a little or watch TV but she refuses politely. She is cooperative with 1:1 assessment, but barely speaks, only yes, no, and requests an ativan and a colace. Her expression is very flat, she does not smile, and only opens her eyes to take her medications. S/I, H/I: Passive A/VH: Denies ADL's: Independent with prompting. Sleep: Asleep since HS med pass. Group attendance: No groups at night. Were meds taken: Yes Any med S/E: None reported, none observed. Mental Status Exam Appearance: Disheveled Eye contact: Direct Behavior: Cooperative, vague Speech: Soft, sparse Mood: Depressed Affect: Flat Thought process: Linear Thought Content: Hopeless regarding her depression Cognition: A/Ox4 Insight: Fair. Judgment: Poor. Interventions PRN's used: Therapeutic interventions: Continue therapeutic relationship, perform 1:1 assessment, provided active listening, medication education, administration, and monitoring for effects, maintained therapeutic milieu, Q15 min safety checks. Restraints/seclusion/emergency medication: N/A Justification of Continued Inpatient Treatment: Therapeutic support and medication management needed to provide stabilization, and prevent decompensation decreasing risk to patient for readmittance to inpatient unit.
[2019-02-22 07:54] VITALS: BP 122/50
[2019-02-22] MEDS: metoprolol tartrate 12.5mg (1/2 tablet) PO SCH ×2 (08:00→20:00)
[2019-02-22] MEDS: gentamicin 0.1% topical ointment 15gm TP SCH ×2 (08:00→20:00)
[2019-02-22] MEDS: aripiprazole 5mg tablet PO SCH (08:51)
[2019-02-22] MEDS: vitamin D (cholecalciferol) 1,000 unit tablet PO SCH ×2 (08:51→20:28)
[2019-02-22] MEDS: losartan 50mg tablet PO SCH (08:53)
[2019-02-22] MEDS: LIDOCAINE 5% OINTMENT 35GM TP PRN (08:54)
[2019-02-22] MEDS: pravastatin 40mg tablet PO SCH (08:54)
[2019-02-22] MEDS: [UNRECOGNIZED DRUG - OTHER] PO SCH ×4 (08:56→20:32)
[2019-02-22] MEDS: docusate sod 100mg capsule PO PRN ×2 (09:18→20:28)
--- NOTE | 2019-02-22 15:50 | NUR ---
Nursing Progress Note Legal hold: Voluntary Report received from KRISTY Stoll with the use of SBAR Why are they here: Pt presents as depressed with recent suicidal gesture of getting in her car and starting the ignition with the intent to kill herself. She ended up getting out of the car and letting family know. She presents as hopeless and helpless, downcast expression, speech quiet. A&Ox4. Sees Dr. Morales outpatient. Assessment: What happened today? The patient was laying face up on her back with her eyes open at the start of shift. She took her medication as prescribed. During morning assessment pt requested docusate. Medication education provided with administration of the docusate and pt agreed to continue to ask for it until she has a normal bowel movement. She reports, "depression 04/27" today, sharing her reason for the depression is, "I cant feel anything in my heart." When asked to describe what she meant she said, "my emotions." This signwriter asked if she was referring to "happiness and sadness." She replied, "Yes." S/I, H/I: Denies A/VH: Denies ADL's: Independent with prompting. Sleep: Napped during the day Group attendance: Attended afternoon group Were meds taken: Yes Any med S/E: None reported, none observed. Mental Status Exam Appearance: Remains in her green scrubs Eye contact: Direct Behavior: Cooperative Speech: Normal rate and rhythm Mood: Depressed Affect: Flat Thought process: Linear and connected Thought Content: Talked about living alone Cognition: A/Ox4 Insight: Fair. Judgment: Fair Interventions PRN's used: Therapeutic interventions: Continue therapeutic relationship, perform 1:1 assessment, provided active listening, medication education, administration, and monitoring for effects, maintained therapeutic milieu, Q15 min safety checks. Restraints/seclusion/emergency medication: N/A Justification of Continued Inpatient Treatment: Therapeutic support and medication management needed to provide stabilization, and prevent decompensation decreasing risk to patient for readmittance to inpatient unit.
[2019-02-22 20:00] VITALS: BP 110/70
[2019-02-22] MEDS: Melatonin 3mg tablet PO SCH (20:28)
[2019-02-22] MEDS: psyllium seed 3.4 gm packet PO SCH (20:32)
[2019-02-22] MEDS: LORazepam 0.5 MG tablet PO PRN (20:40)
--- NOTE | 2019-02-23 02:23 | NUR ---
Nursing Progress Note Legal hold: Voluntary Report received from KRISTY Salmeron with the use of SBAR Why are they here: Pt presents as depressed with recent suicidal gesture of getting in her car and starting the ignition with the intent to kill herself. She ended up getting out of the car and letting family know. She presents as hopeless and helpless, downcast expression, speech quiet. A&Ox4. Sees Dr. Morales outpatient. Assessment: What happened today? Patient was napping at change of shift. During 1:1, stated she wasn't "feeling anything at all." Pt stated this multiple times during conversation, elaborating that she is "Sad. I just don't feel anything." RN inquired about her day and asked about her family; pt engaged willingly in conversation about her children but otherwise responses were minimal regarding her current emotional condition. Encouraged pt to drink more fluids to help with bowel movements. Pt was medication complaint. She stayed in her room and bed for the entirety of the shift even with encouragement to get up and move. S/I, H/I: Denies A/VH: Denies ADL's: Independent with prompting. Sleep: See Sleep Assessment Group attendance: N/A Were meds taken: Yes Any med S/E: None reported, none observed. Mental Status Exam Appearance: Remains in her green scrubs, hair disheveled, needs shower Eye contact: Direct Behavior: Cooperative, Lies in bed, Isolates in room Speech: Normal rate and rhythm Mood: Depressed Affect: Flat Thought process: Linear and connected Thought Content: Talked about living alone, not wanting to go to retirement Cognition: A/Ox4 Insight: Fair Judgment: Fair Interventions PRN's used: Ativan 0.5mg Therapeutic interventions: Continue therapeutic relationship, perform 1:1 assessment, provided active listening, medication education, administration, and monitoring for effects, maintained therapeutic milieu, Q15 min safety checks. Restraints/seclusion/emergency medication: N/A Justification of Continued Inpatient Treatment: Therapeutic support and medication management needed to provide stabilization, and prevent decompensation decreasing risk to patient for readmittance to inpatient unit.
[2019-02-23] MEDS: gentamicin 0.1% topical ointment 15gm TP SCH ×2 (08:00→20:00)
[2019-02-23] MEDS: metoprolol tartrate 12.5mg (1/2 tablet) PO SCH ×2 (08:00→21:11)
[2019-02-23] MEDS: aripiprazole 5mg tablet PO SCH (08:22)
[2019-02-23] MEDS: losartan 50mg tablet PO SCH (08:22)
[2019-02-23] MEDS: vitamin D (cholecalciferol) 1,000 unit tablet PO SCH ×2 (08:22→21:12)
[2019-02-23] MEDS: docusate sod 100mg capsule PO PRN ×2 (08:22→21:13)
[2019-02-23] MEDS: [UNRECOGNIZED DRUG - OTHER] PO SCH ×4 (08:46→21:12)
[2019-02-23 08:47] VITALS: BP 108/57
[2019-02-23] MEDS: pravastatin 40mg tablet PO SCH (08:47)
[2019-02-23] MEDS: LIDOCAINE 5% OINTMENT 35GM TP PRN (08:47)
--- NOTE | 2019-02-23 16:13 | NUR ---
Nursing Progress Note Legal hold: Voluntary Report received from KRISTY Collier with the use of SBAR Why are they here: Pt presents as depressed with recent suicidal gesture of getting in her car and starting the ignition with the intent to kill herself. She ended up getting out of the car and letting family know. She presents as hopeless and helpless, downcast expression, speech quiet. A&Ox4. Sees Dr. Morales outpatient. Assessment: What happened this shift: Pt asleep at start of shift. Up for meals. Cooperative during 1:1 assessment. She stayed in bed most of the shift. Her sister came for a brief visit then afterwards she paced the halls for awhile. She stated she was "very happy to see her sister." S/I, H/I: Denies A/VH: Denies ADL's: Independent with prompting. Sleep: Napped during the day Group attendance: Yes Were meds taken: Yes Any med S/E: None reported, none observed. Mental Status Exam Appearance: Remains in her green scrubs Eye contact: Direct Behavior: Cooperative Speech: Normal rate and rhythm Mood: Depressed Affect: Flat Thought process: Linear and connected Thought Content: Talked about living alone Cognition: A/Ox4 Insight: Fair. Judgment: Fair Interventions PRN's used: Therapeutic interventions: provided therapeutic communication and active listening; medication education, administration, and monitoring for effects, encouraged to go to groups; Q15 min safety checks. Restraints/seclusion/emergency medication: N/A Justification of Continued Inpatient Treatment: Therapeutic support and medication management needed to provide stabilization, and prevent decompensation decreasing risk to patient for readmittance to inpatient unit.
[2019-02-23 20:00] VITALS: BP 123/58
[2019-02-23] MEDS: LORazepam 0.5 MG tablet PO PRN (21:12)
[2019-02-23] MEDS: psyllium seed 3.4 gm packet PO SCH (21:12)
[2019-02-23] MEDS: Melatonin 3mg tablet PO SCH (21:12)
--- NOTE | 2019-02-24 00:10 | NUR ---
Nursing Progress Note: Legal hold: Voluntary Client on voluntary DTS Report received from nurse with use of SBAR: KRISTY Mohamud Why are they here: Pt presents as depressed with recent suicidal gesture of getting in her car and starting the ignition with the intent to kill herself. She ended up getting out of the car and letting family know and they then brought her to the ER. She presents as hopeless and helpless, downcast expression, speech quiet, and has hx of depression with two previous suicide attempts. Pt. is and lives alone, however receives support from her three children. She is a patient of Dr. Reed. Assessment What has happened this shift: Pt. sleeping in bed at the beginning of the shift and remains here throughout the shift. She continues to present as fatigued, withdrawn, and isolative. 1:1 completed at bedside, pt. is cooperative, however affect remains flat. She denies S/I, however continues to endorse depression. When asked by this journalists and other writers to rate her depression, pt. did not answer, she continues to have a delay in response regarding speech. This journalists and other writers questioned pt. in regard to how the visit with her sister went today, and pt. smiled and stated, "Good, she's wonderful." However, she admitted that she does not get to see her sister much because she lives in [place], [place]. Pt. requests PRN Ativan at HS per insomnia r/t some anxiety. She also requests PRN Colace r/t small, hard BM today, Colace administered along with scheduled Metamucil, will continue to monitor. Bowl sounds active X 4 quadrants, and pt. encouraged to ambulate to help stimulate bowl movement, she reported understanding. S/I, H/I: Denies A/VH: N/A Sleep: Pt. presents as fatigued, sleeping on and off throughout the shift ADL's: Pt. requires prompting and encouragement from staff in order to complete ADLs Group attendance: Pt. reports she did attend group today, but had to leave early. She identifies a coping mechanism as, "learning to focus." Were meds taken: Pt. refused topical Gentamicin Ointment, reports she no longer needs it, will endorse to AM shift. Any med S/E: None Mental Status Exam Appearance: Neat and appropriately dressed Eye contact: Poor to fair Behavior: Cooperative, however guarded and withdrawn, and fatigued Speech: Speech is soft, inaudible at times with a delay in response time. Mood: Depressed Affect: Flat Thought process: Poverty of thought and blocking Thought Content: Ongoing preoccupation with depressive thoughts and hopelessness Cognition: Pt. is A&O Insight: Poor Judgment: Poor to fair Interventions PRN's used: Ativan X1 and Colace X1 Therapeutic interventions: Maintained a safe and therapeutic environment, ensured contract for safety, provided encouragement and positive reenforcement, provided reorientation to reality as needed, monitored behaviors and need for intervention, and maintained Q 15 min safety checks. Restraints/seclusion/emergency medication: N/A Justification of Continued Inpatient Treatment: Pt. continues to requires stabilization, medication adjustments, and a safe and supportive environment.
[2019-02-24] MEDS: [UNRECOGNIZED DRUG - OTHER] PO SCH ×4 (07:58→21:06)
[2019-02-24] MEDS: pravastatin 40mg tablet PO SCH (07:58)
[2019-02-24] MEDS: aripiprazole 5mg tablet PO SCH (07:58)
[2019-02-24] MEDS: losartan 50mg tablet PO SCH (07:59)
[2019-02-24] MEDS: vitamin D (cholecalciferol) 1,000 unit tablet PO SCH ×2 (07:59→21:07)
[2019-02-24] MEDS: metoprolol tartrate 12.5mg (1/2 tablet) PO SCH ×2 (07:59→21:06)
[2019-02-24 08:00] VITALS: BP 128/50
[2019-02-24] MEDS: gentamicin 0.1% topical ointment 15gm TP SCH (08:00)
--- NOTE | 2019-02-24 16:08 | NUR ---
Nursing Progress Note: AICHA Legal hold: VOL Client on voluntary DTS Report received from nurse with use of SBAR: Araseli Chu RN Why are they here: Pt presents as depressed with recent suicidal gesture of getting in her car and starting the ignition with the intent to kill herself. She ended up getting out of the car and letting family know and they then brought her to the ER. She presents as hopeless and helpless, downcast expression, speech quiet, and has hx of depression with two previous suicide attempts. Pt. is and lives alone, however receives support from her three children. She is a patient of Dr. Morales. Assessment What has happened this shift: Pt. sleeping in bed at the beginning of the shift and remains here throughout most of the shift. She continues to present as fatigued, withdrawn, and isolative. Pt. is cooperative, however affect remains flat. She denies S/I, however continues to endorse depression worse than ever. She reports having a BM yest, denies any constipation issues. Pt reports feeling hopeless because her meds arent working. She would like to D/C her gentamycin ointment, refused it today. Cyber Security Architect received verbal order from Ravinder Gannon to D/C. S/I, H/I: Denies A/VH: N/A Sleep: 8.25hr NOC ADL's: Pt. requires prompting and encouragement Group attendance: unknown Were meds taken: Pt. refused topical Gentamicin Ointment Any med S/E: None observed or expressed Mental Status Exam Appearance: Neat and appropriately dressed Eye contact: Poor to fair Behavior: Cooperative, however guarded and withdrawn Speech: Speech is soft, inaudible at times Mood: Depressed Affect: Flat Thought process: Poverty of thought and blocking Thought Content: Ongoing preoccupation with depressive thoughts and hopelessness Cognition: Pt. is A&OX3 Insight: Poor Judgment: Poor to fair Interventions PRN's used: Therapeutic interventions: Maintained a safe and therapeutic environment, ensured contract for safety, provided encouragement and positive reenforcement, provided reorientation to reality as needed, monitored behaviors and need for intervention, and maintained Q 15 min safety checks. Restraints/seclusion/emergency medication: N/A Justification of Continued Inpatient Treatment: Pt. continues to requires stabilization, medication adjustments, and a safe and supportive environment.
[2019-02-24 20:00] VITALS: BP 117/64
[2019-02-24] MEDS: magnesium hydroxide 30ml (MOM) UD suspension PO PRN (21:00)
[2019-02-24] MEDS: docusate sod 100mg capsule PO PRN (21:07)
[2019-02-24] MEDS: psyllium seed 3.4 gm packet PO SCH (21:07)
[2019-02-24] MEDS: LORazepam 0.5 MG tablet PO PRN (21:07)
[2019-02-24] MEDS: Melatonin 3mg tablet PO SCH (21:07)
[2019-02-24 22:00] VITALS: BP_SYST 100; BP_SYST 110; BP_DIAS 56; BP_DIAS 60
--- NOTE | 2019-02-24 23:49 | NUR ---
Nursing Progress Note: Legal hold: Voluntary Client on voluntary DTS Report received from nurse with use of SBAR: KRISTY Mohamud Why are they here: Pt presents as depressed with recent suicidal gesture of getting in her car and starting the ignition with the intent to kill herself. She ended up getting out of the car and letting family know and they then brought her to the ER. She presents as hopeless and helpless, downcast expression, speech quiet, and has hx of depression with two previous suicide attempts. Pt. is and lives alone, however receives support from her three children. She is a patient of Dr. Reed. Assessment What has happened this shift: Pt. sleeping in bed at the beginning of the shift and remains here throughout the shift. 1:1 completed at bedside, pt. remains fatigued, withdrawn, and isolative. She denies S/I, however reports she continues to be depressed and stays in bed most of the time. When asked by this automotive service writer if she feels fatigued, pt. stated, "I don't feel tired, I just don't want to do anything but lay here." She continues to endorse constipation, and reports she had another small, hard BM today. Scheduled Metamucil and PRN Coalce and MOM administered, pt. is encouraged to drink plenty of fluids and reports understanding. Pt. also reports feeling unsteady on her feet, orthostatic V/S obtained and WNL, pt. encouraged to push call light for assistance with transferring during the night. Will endorse to AM shift and continue to monitor. S/I, H/I: Denies A/VH: N/A Sleep: Pt. presents as fatigued, sleeping on and off throughout the shift ADL's: Pt. requires prompting and encouragement from staff in order to complete ADLs Group attendance: Pt. does not attend HS snack Were meds taken: Yes Any med S/E: Pt. reports feeling unsteady on her feet, orthostatic V/S WNL Mental Status Exam Appearance: Neat and appropriately dressed Eye contact: Fair Behavior: Cooperative, however guarded and withdrawn, and fatigued Speech: Speech is soft, inaudible at times with a delay in response time. Mood: Depressed Affect: Flat Thought process: Poverty of thought and blocking Thought Content: Ongoing preoccupation with depressive thoughts and hopelessness Cognition: Pt. is A&O Insight: Poor Judgment: Poor to fair Interventions PRN's used: Ativan X1, Colace X1, and MOM Therapeutic interventions: Maintained a safe and therapeutic environment, ensured contract for safety, provided encouragement and positive reenforcement, monitored behaviors and need for intervention, obtained orthostatic V/S and educated on fall precautions, and maintained Q 15 min safety checks. Restraints/seclusion/emergency medication: N/A Justification of Continued Inpatient Treatment: Pt. continues to requires stabilization, medication adjustments, and a safe and supportive environment.
[2019-02-25 08:00] VITALS: BP 97/46
[2019-02-25] MEDS: metoprolol tartrate 12.5mg (1/2 tablet) PO SCH ×2 (08:00→20:40)
[2019-02-25] MEDS: losartan 50mg tablet PO SCH (08:05)
[2019-02-25] MEDS: vitamin D (cholecalciferol) 1,000 unit tablet PO SCH ×2 (08:05→20:40)
[2019-02-25] MEDS: pravastatin 40mg tablet PO SCH (08:05)
[2019-02-25] MEDS: [UNRECOGNIZED DRUG - OTHER] PO SCH ×4 (08:06→20:40)
[2019-02-25] MEDS: aripiprazole 5mg tablet PO SCH (08:07)
--- NOTE | 2019-02-25 13:33 | NUR ---
DISCHARGE PLANNING & COLLATERAL INFORMATION: Pt's brother, Ronald Javed @ [phone] phoned requesting information on pt's status and Tx plan. Updated him, he gave clarification on pt's husbands and with share w/ when he calls and mail. Will also provide clarification on any other issues she's perseverating on. Also informed him of the few remaining medicare days and requested he & his siblings discuss options, he asked about Assisted living and will phone back after they have talked. I gave him GAURAV Driscoll's contact info. He has requested that Pt's doctor please phone him. He lives in [place] and is receiving limited information. He is very concerned and would like to help if he can but is requesting additional direction and information. MIGUEL ANGEL Staples
--- NOTE | 2019-02-25 17:10 | NUR ---
Nursing Progress Note: AICHA Legal hold: Voluntary Client on voluntary DTS Report received from nurse with use of SBAR: Araseli Chu RN Why are they here: Pt presents as depressed with recent suicidal gesture of getting in her car and starting the ignition with the intent to kill herself. She ended up getting out of the car and letting family know and they then brought her to the ER. She presents as hopeless and helpless, downcast expression, speech quiet, and has hx of depression with two previous suicide attempts. Pt. is and lives alone, however receives support from her three children. She is a patient of Dr. Morales. Assessment What has happened this shift: Pt. sleeping in bed at the beginning of the shift. 1:1 completed at bedside. Pt appears fatigued, withdrawn, and isolative. She denies S/I, however reports she continues to be depressed and stays in bed most of the time. Pt reports feelings of emptiness. Denies wanting to eat but is aware she needs to. Pt. is encouraged to drink plenty of fluids and exercise to assist with healthy bowel functioning. Pt. also reports feeling like she is getting weaker physically, again screen writer encouraged her to eat her food and walk regularly to discourage any muscle atrophy. S/I, H/I: Denies A/VH: N/A Sleep: 9.75hrs NOC ADL's: Pt. requires prompting and encouragement from staff in order to complete ADLs Group attendance: No Were meds taken: Yes Any med S/E: Pt observed to have fine tremors of her right hand, Dr notified. Mental Status Exam Appearance: Neat and appropriately dressed Eye contact: Fair Behavior: Cooperative but guarded, withdrawn, and fatigued Speech: Speech is soft, inaudible at times with delayed response time. Mood: Depressed, Hopeless & Helpless Affect: Flat Thought process: Poverty of thought and blocking Thought Content: Ongoing preoccupation with depressive thoughts and hopelessness and her past emotional affair Cognition: Pt. is A&O Insight: Poor Judgment: Poor to fair Interventions PRN's used: N/A Therapeutic interventions: Maintained a safe and therapeutic environment, ensured contract for safety, provided encouragement and positive reenforcement, monitored behaviors and need for intervention, obtained orthostatic V/S and educated on fall precautions, and maintained Q 15 min safety checks. Restraints/seclusion/emergency medication: N/A Justification of Continued Inpatient Treatment: Pt. continues to requires stabilization, medication adjustments, and a safe and supportive environment.
[2019-02-25 20:00] VITALS: BP 115/60
[2019-02-25] MEDS: LORazepam 0.5 MG tablet PO PRN (20:40)
[2019-02-25] MEDS: psyllium seed 3.4 gm packet PO SCH (20:40)
[2019-02-25] MEDS: Melatonin 3mg tablet PO SCH (20:40)
--- NOTE | 2019-02-26 00:22 | NUR ---
Nursing Progress Note: Legal hold: Voluntary Client on voluntary DTS Report received from nurse with use of SBAR: KRISTY Cowan Why are they here: Pt presents as depressed with recent suicidal gesture of getting in her car and starting the ignition with the intent to kill herself. She ended up getting out of the car and letting family know and they then brought her to the ER. She presents as hopeless and helpless, downcast expression, speech quiet, and has hx of depression with two previous suicide attempts. Pt. is and lives alone, however receives support from her three children. She is a patient of Dr. Reed. Assessment What has happened this shift: Pt. sleeping in bed at the beginning of the shift and remains here throughout the shift. 1:1 completed at bedside, pt. remains fatigued, withdrawn, and isolative. She reports passive S/I, states, "I just want to lay here and ." Pt. then asks this staff writer, "Why do you think I feel that way?" This staff writer discussed with pt. things that make her happy and she was able to identify her family (sister and pt's children). This staff writer questioned pt. whether she might like to go live closer to her family and she agreed that she might. Pt. admits that she was able to have a large bowl movement today and feels relief, she was also able to walk a few laps in the hallway. Pt. continues to report feeling somewhat unsteady on her feet, however she feels that her chronic tremors in her bilateral lower extremities may be contributing to this (she reports her mother had essential tremors). This staff writer will endorse to AM shift, and pt. encouraged to push call light for assistance with transferring during the night. S/I, H/I: Passive S/I A/VH: N/A Sleep: Pt. presents as fatigued, sleeping on and off throughout the shift ADL's: Pt. requires prompting and encouragement from staff in order to complete ADLs Group attendance: Pt. reports she attends groups sometimes, however has difficulty hearing. She requests new hearing aide batteries, will endorse to AM shift. Were meds taken: Yes Any med S/E: Pt. reports feeling somewhat unsteady on her feet, however she feels that her chronic tremors in her bilateral lower extremities may be contributing to this Mental Status Exam Appearance: Neat and appropriately dressed Eye contact: Fair Behavior: Cooperative, however guarded and withdrawn, and fatigued Speech: Speech is soft, inaudible at times with a delay in response time. Mood: Depressed Affect: Flat Thought process: Poverty of thought and blocking Thought Content: Ongoing preoccupation with depressive thoughts and hopelessness Cognition: Pt. is A&O Insight: Poor Judgment: Poor to fair Interventions PRN's used: Ativan X1 Therapeutic interventions: Maintained a safe and therapeutic environment, ensured contract for safety, provided encouragement and positive reenforcement, monitored behaviors and need for intervention, educated on fall precautions, and maintained Q 15 min safety checks. Restraints/seclusion/emergency medication: N/A Justification of Continued Inpatient Treatment: KARI Weber, pt. continues to be unable to provide for her own food, clothing, and retirement and requires a safe and supportive environment.
[2019-02-26 08:00] VITALS: BP 108/46
[2019-02-26] MEDS: metoprolol tartrate 12.5mg (1/2 tablet) PO SCH ×2 (08:00→20:00)
[2019-02-26] MEDS: losartan 50mg tablet PO SCH (08:39)
[2019-02-26] MEDS: aripiprazole 5mg tablet PO SCH (08:39)
[2019-02-26] MEDS: vitamin D (cholecalciferol) 1,000 unit tablet PO SCH ×2 (08:42→20:05)
[2019-02-26] MEDS: pravastatin 40mg tablet PO SCH (08:42)
[2019-02-26] MEDS: [UNRECOGNIZED DRUG - OTHER] PO SCH ×4 (08:43→20:13)
[2019-02-26] MEDS: Estradiol 0.025mg/day patch (1 per week) TD SCH (08:49)
--- NOTE | 2019-02-26 15:03 | NUR ---
Nursing Progress Note: Legal hold: Voluntary Client on voluntary DTS Report received from nurse with use of SBAR: Araseli Chu RN Why are they here: Pt presents as depressed with recent suicidal gesture of getting in her car and starting the ignition with the intent to kill herself. She ended up getting out of the car and letting family know and they then brought her to the ER. She presents as hopeless and helpless, downcast expression, speech quiet, and has hx of depression with two previous suicide attempts. Pt. is and lives alone, however receives support from her three children. She is a patient of Dr. Morales. Assessment What has happened this shift: Received pt. sleeping in bed w/o distress at the beginning of the shift. Assessed pt at bedside, calm and cooperative yet reserved and needed to be coaxed for information. Pt continues to be fatigued, withdrawn, and isolative. Pt denies S/I, however reports she continues to be depressed and stays in bed most of the time. Pt reports feeling empty, and unable to take action to change her situation. Denies wanting to eat but is aware she needs to. Continued to encourage to drinking plenty of fluids and exercise to assist with healthy bowel functioning. Pt spent most of free time sleeping in bed. S/I, H/I: Denies A/VH: N/A Sleep: Good ADL's: Pt. requires prompting and encouragement from staff in order to complete ADLs Group attendance: No Were meds taken: Yes Any med S/E: None Mental Status Exam Appearance: Neat and appropriately dressed Eye contact: Fair Behavior: Cooperative but guarded, withdrawn, and fatigued Speech: Speech is soft, inaudible at times with delayed response time. Mood: Depressed, Hopeless & Helpless Affect: Flat Thought process: Poverty of thought and blocking Thought Content: Ongoing preoccupation with depressive thoughts and hopelessness and her past emotional affair Cognition: Pt. is A&O Insight: Poor Judgment: Poor to fair Interventions PRN's used: N/A Therapeutic interventions: Maintained a safe and therapeutic environment, ensured contract for safety, provided encouragement and positive reenforcement, monitored behaviors and need for intervention, obtained orthostatic V/S and educated on fall precautions, and maintained Q 15 min safety checks. Restraints/seclusion/emergency medication: N/A Justification of Continued Inpatient Treatment: Pt. continues to requires stabilization, medication adjustments, and a safe and supportive environment.
[2019-02-26 19:53] VITALS: BP 112/60
[2019-02-26] MEDS: LORazepam 0.5 MG tablet PO PRN (20:05)
[2019-02-26] MEDS: psyllium seed 3.4 gm packet PO SCH (20:05)
[2019-02-26] MEDS: Melatonin 3mg tablet PO SCH (20:05)
--- NOTE | 2019-02-26 21:22 | NUR ---
Nursing Progress Note: Legal hold: Voluntary Client on voluntary DTS Report received from nurse with use of SBAR: KRISTY Bosch Why are they here: Pt presents as depressed with recent suicidal gesture of getting in her car and starting the ignition with the intent to kill herself. She ended up getting out of the car and letting family know and they then brought her to the ER. She presents as hopeless and helpless, downcast expression, speech quiet, and has hx of depression with two previous suicide attempts. Pt. is and lives alone, however receives support from her three children. She is a patient of Dr. Morales. Assessment Pt was walking in hallway at change of shift and requests a shower. Pt showered and returned to bed. Pt continues to report depression 04/27. Pt reports feeling "helpless" stating "I need help to even dress myself." Pt states "I dont care about eating" when asked about her appetite. Pt showered and remained in bed for duration of the evening, requested ativan prn before bed. S/I, H/I: Denies A/VH: N/A Sleep: "really good" ADL's: Pt. requires prompting and encouragement from staff in order to complete ADLs Group attendance: No Were meds taken: Yes Any med S/E: None Mental Status Exam Appearance: Neat and appropriately dressed Eye contact: Fair Behavior: Cooperative but guarded, withdrawn, and fatigued Speech: Speech is soft, inaudible at times with delayed response time. Mood: Depressed, Hopeless & Helpless Affect: constricted Thought process: Poverty of thought and blocking Thought Content: Ongoing preoccupation with depressive thoughts and hopelessness and her past emotional affair Cognition: Pt. is A&O Insight: Poor Judgment: Poor to fair Interventions PRN's used: N/A Therapeutic interventions: Maintained a safe and therapeutic environment, ensured contract for safety, provided encouragement and positive reenforcement, monitored behaviors and need for intervention, obtained orthostatic V/S and educated on fall precautions, and maintained Q 15 min safety checks. Restraints/seclusion/emergency medication: N/A Justification of Continued Inpatient Treatment: Pt. continues to requires stabilization, medication adjustments, and a safe and supportive environment.
[2019-02-27 07:35] VITALS: BP 120/61
[2019-02-27] MEDS: metoprolol tartrate 12.5mg (1/2 tablet) PO SCH ×2 (07:56→20:00)
[2019-02-27] MEDS: vitamin D (cholecalciferol) 1,000 unit tablet PO SCH ×2 (07:56→20:44)
[2019-02-27] MEDS: pravastatin 40mg tablet PO SCH (07:56)
[2019-02-27] MEDS: losartan 50mg tablet PO SCH (07:56)
[2019-02-27] MEDS: [UNRECOGNIZED DRUG - OTHER] PO SCH ×4 (07:56→20:44)
[2019-02-27] MEDS: aripiprazole 5mg tablet PO SCH (08:00)
--- NOTE | 2019-02-27 17:15 | NUR ---
Nursing Progress Note: AICHA Legal hold: Voluntary Client on voluntary DTS Report received from nurse with use of SBAR: KRISTY Moore Why are they here: Pt presents as depressed with recent suicidal gesture of getting in her car and starting the ignition with the intent to kill herself. She ended up getting out of the car and letting family know and they then brought her to the ER. She presents as hopeless and helpless, downcast expression, speech quiet, and has hx of depression with two previous suicide attempts. Pt. is and lives alone, however receives support from her three children. She is a patient of Dr. Morales. Assessment Pt was sleeping in bed at change of shift. Pt took her medications with no problem, got up and ate breakfast. Pt continues to report depression 04/27. Pt reports feeling "helpless" and c/o weakness. Pt not interested in eating or any extracurricular activities. Early Morning Babysitter assisted her with changing her attends, pt thankful for the assistance. When offered lunch she reports, Oh no, Im not interested in that at all. Pt did not eat lunch but was amendable to drink juice. Pt had a visit from daughter and sister in the afternoon which went well. After her visit she was found exercising in her bed by doing bicycle motions with her feet. S/I, H/I: Denies A/VH: Denies, none observed Sleep: "good" ADL's: Prompting from staff in order to complete ADLs Group attendance: Were meds taken: Yes Any med S/E: tremors of hands and feet bilat Mental Status Exam Appearance: Dressed in green scrubs Eye contact: Fair Behavior: Cooperative but guarded, withdrawn, and fatigued Speech: Speech is soft, inaudible at times with delayed response time. Mood: Depressed, Hopeless & Helpless Affect: constricted Thought process: Poverty of thought and blocking Thought Content: Ongoing preoccupation with depressive thoughts and hopelessness and her past emotional affair Cognition: Pt. is A&O Insight: Poor Judgment: Poor to fair Interventions PRN's used: Therapeutic interventions: Maintained a safe and therapeutic environment, ensured contract for safety, provided encouragement and positive reenforcement, monitored behaviors and need for intervention, obtained orthostatic V/S and educated on fall precautions, and maintained Q 15 min safety checks. Restraints/seclusion/emergency medication: N/A Justification of Continued Inpatient Treatment: Pt. continues to requires stabilization, medication adjustments, and a safe and supportive environment.
[2019-02-27 19:57] VITALS: BP 116/54
[2019-02-27] MEDS: Melatonin 3mg tablet PO SCH (20:44)
[2019-02-27] MEDS: psyllium seed 3.4 gm packet PO SCH (20:46)
[2019-02-27] MEDS: LORazepam 0.5 MG tablet PO PRN (20:49)
--- NOTE | 2019-02-27 23:38 | NUR ---
Nursing Progress Note Legal hold: Voluntary Report received using SBAR from TEETEE Bosch. Why are they here: Pt presents as depressed with recent suicidal gesture of getting in her car and starting the ignition with the intent to kill herself. She ended up getting out of the car and letting family know. She presents as hopeless and helpless, downcast expression, speech quiet. A&Ox4. Sees Dr. Morales outpatient. Assessment: What happened this shift: The patient was found in her bed at shift change. She woke easily, but declined assessment. "I don't feel like talking right now. The patient presents as depressed and hopeless. She declined getting up for snacks, but would sit on the side of her bed. She denies any relief of depression from medication, except Nardil. The patient takes her medication without complaint. She refused Metoprolol, "I don't want it, my blood pressure has been low lately." S/I, H/I: Passive. A/VH: Denies. ADL's: Independent with prompting. Sleep: Asleep since HS med pass. Group attendance: No groups at night. Were meds taken: Yes Any med S/E: None reported, none observed. Mental Status Exam Appearance: Disheveled, odorous, lady wearing full green scrubs. Eye contact: Direct Behavior: Vague, sleepy, isolative. Speech: Soft tone, poverty of speech. Mood: Depressed, hopeless Affect: Flat Thought process: Linear Thought Content: Hopeless regarding her depression Cognition: A/Ox4 Insight: Fair. Judgment: Poor. Interventions PRN's used: Therapeutic interventions: Continue therapeutic relationship, perform 1:1 assessment, provided active listening, medication education, administration, and monitoring for effects, maintained therapeutic milieu, Q15 min safety checks. Restraints/seclusion/emergency medication: N/A Justification of Continued Inpatient Treatment : Therapeutic support and medication management needed to provide stabilization, and prevent decompensation decreasing risk to patient for readmittance to inpatient unit.
[2019-02-28 07:35] VITALS: BP 123/53
[2019-02-28] MEDS: metoprolol tartrate 12.5mg (1/2 tablet) PO SCH ×2 (08:00→21:13)
[2019-02-28] MEDS: losartan 50mg tablet PO SCH (08:12)
[2019-02-28] MEDS: pravastatin 40mg tablet PO SCH (08:13)
[2019-02-28] MEDS: aripiprazole 5mg tablet PO SCH (08:13)
[2019-02-28] MEDS: [UNRECOGNIZED DRUG - OTHER] PO SCH ×4 (08:15→21:08)
[2019-02-28] MEDS: vitamin D (cholecalciferol) 1,000 unit tablet PO SCH ×2 (08:27→21:08)
--- NOTE | 2019-02-28 15:07 | NUR ---
Reassessment: Patient is eating well, 75-100% PO intake. Did refuse last night's dinner, other than that is eating well overall with good appetite. Meeting nutrition needs. LBM 02/26, receiving prn bowel care. No nutrition concerns at this time. Recommendations: 1) Continue regular diet- already low in tyramine 2) Continue bowel care as needed 3) Weekly wts Addendum: 02/28/19 at [address] Amended: Links added.
--- NOTE | 2019-02-28 15:18 | NUR ---
DISCHARGE PLANNING: URIEL contacted pt's sister, Ada, who reports pt wants to feel like she did years ago and this has caused pt to have continued sx w/ little improvement. She reports pt's children have agreed to contact an research attorney to begin Probate Conservatorship process and make decisions regarding pt's living arrangements. Ada states she will coordinate placement in a prison community for pt in [place], [place] so she can visit pt daily. URIEL discussed this w/ pt, who states she does not agree, then agreed she may like it. URIEL contacted pt son and sister to begin placement arrangements. Renee Verma, Waste Specialist MMD UNIT TEACHER [id number] Supervised by Kd Collier, [id number]
--- NOTE | 2019-02-28 16:44 | NUR ---
PLACEMENT: SW received TC from Sharon at [facility] at [phone], who reports she has received contact from pt's son, Puneet. SW had pt complete KULWINDER, then returned contact to Sharon. It was agreed that pt would be interviewed for placement in [facility] at [facility] on 03/01/2019. Renee Verma, Communications Director [facility] [id number] Supervised by Kd Collier, [id number] Addendum: 02/28/19 at 1649 by Renee Verma SS Addition: URIEL emailed PPD, H&P and [facility] to [facility].
--- NOTE | 2019-02-28 16:44 | NUR ---
Nursing Progress Note: AICHA Legal hold: Voluntary Client on voluntary DTS Report received from nurse with use of SBAR: Crystal RN Why are they here: Pt presents as depressed with recent suicidal gesture of getting in her car and starting the ignition with the intent to kill herself. She ended up getting out of the car and letting family know and they then brought her to the ER. She presents as hopeless and helpless, downcast expression, speech quiet, and has hx of depression with two previous suicide attempts. Pt. is and lives alone, however receives support from her three children. She is a patient of Dr. Morales. Assessment Pt was sleeping in bed at change of shift. Pt took her medications with no problem, got up and ate breakfast. Pt continues to report depression 04/27. Pt reports feeling "helpless" and c/o whole body weakness. Pt initially denied her Vitamin D3 in the AM, said she remembered a doctor telling her that her vitamin D levels were WNL so she didnt feel like the pill was warranted. Pharmacy Buyer educated her on vitamin D and the role it plays within the body. Pt was then amendable to taking the medication. S/I, H/I: Denies A/VH: Denies, none observed Sleep: "Fine" 10.5hrs NOC ADL's: Prompting from staff in order to complete ADLs Group attendance: No Were meds taken: Yes, hesitant to take Vitamin D3 Any med S/E: tremors of hands and feet MD alejandra aware Mental Status Exam Appearance: Dressed in green scrubs Eye contact: Fair Behavior: Cooperative but guarded, withdrawn, and fatigued Speech: Speech is soft, inaudible at times with delayed response time. Mood: Depressed, Hopeless & Helpless Affect: constricted Thought process: Poverty of thought and blocking Thought Content: Ongoing preoccupation with depressive thoughts and hopelessness and her past emotional affair Cognition: Pt. is A&O Insight: Poor Judgment: Poor to fair Interventions PRN's used: Therapeutic interventions: Maintained a safe and therapeutic environment, ensured contract for safety, provided encouragement and positive reenforcement, monitored behaviors and need for intervention, obtained orthostatic V/S and educated on fall precautions, and maintained Q 15 min safety checks. Restraints/seclusion/emergency medication: N/A Justification of Continued Inpatient Treatment: Pt. continues to requires stabilization, medication adjustments, and a safe and supportive environment.
[2019-02-28 19:22] VITALS: BP 119/54
[2019-02-28] MEDS: psyllium seed 3.4 gm packet PO SCH (21:06)
[2019-02-28] MEDS: Melatonin 3mg tablet PO SCH (21:08)
[2019-02-28] MEDS: LORazepam 0.5 MG tablet PO PRN (21:08)
--- NOTE | 2019-02-28 22:14 | NUR ---
Nursing Progress Note Legal hold: Voluntary Report received using SBAR from TEETEE Bosch. Why are they here: Pt presents as depressed with recent suicidal gesture of getting in her car and starting the ignition with the intent to kill herself. She ended up getting out of the car and letting family know. She presents as hopeless and helpless, downcast expression, speech quiet. A&Ox4. Sees Dr. Morales outpatient. Assessment: What happened this shift: The patient was seen at bedside for 1:1. She was sleeping, but easily wakes. She's asked if she would like to walk, but she declined. The patient's affect is flat and she reports depression, "as bad as it can get. I just feel hopeless. I don't feel like talking about it anymore." The patient easily sits on the side of her bed to take meds, then lays back down. The patient spent the entire evening in bed. S/I, H/I: Passive. A/VH: Denies. ADL's: Independent with prompting. Sleep: Asleep since HS med pass. Group attendance: No groups at night. Were meds taken: Yes Any med S/E: None reported, none observed. Mental Status Exam Appearance: Disheveled, lady wearing full green scrubs with a robe. Eye contact: Fair. Behavior: Sleepy, isolative, reclusive. Speech: Soft tone, poverty of speech. Mood: Hopeless, helpless Affect: Flat Thought process: Linear Thought Content: Hopeless regarding her depression Cognition: A/Ox4 Insight: Fair. Judgment: Poor. Interventions PRN's used: Therapeutic interventions: Continue therapeutic relationship, perform 1:1 assessment, provided active listening, medication education, administration, and monitoring for effects, maintained therapeutic milieu, Q15 min safety checks. Restraints/seclusion/emergency medication: N/A Justification of Continued Inpatient Treatment : Therapeutic support and medication management needed to provide stabilization, and prevent decompensation decreasing risk to patient for readmittance to inpatient unit.
[2019-03-01 08:00] VITALS: BP 128/54
[2019-03-01] MEDS: [UNRECOGNIZED DRUG - OTHER] PO SCH ×4 (08:30→20:31)
[2019-03-01] MEDS: metoprolol tartrate 12.5mg (1/2 tablet) PO SCH ×2 (08:30→20:31)
[2019-03-01] MEDS: aripiprazole 5mg tablet PO SCH (08:31)
[2019-03-01] MEDS: vitamin D (cholecalciferol) 1,000 unit tablet PO SCH ×2 (08:31→20:32)
[2019-03-01] MEDS: losartan 50mg tablet PO SCH (08:32)
[2019-03-01] MEDS: pravastatin 40mg tablet PO SCH (08:32)
--- NOTE | 2019-03-01 13:48 | NUR ---
Nursing Progress Note: AICHA Legal hold: Voluntary Client on voluntary DTS Report received from nurse with use of SBAR: Janine RN Why are they here: Pt presents as depressed with recent suicidal gesture of getting in her car and starting the ignition with the intent to kill herself. She ended up getting out of the car and letting family know and they then brought her to the ER. She presents as hopeless and helpless, downcast expression, speech quiet, and has hx of depression with two previous suicide attempts. Pt. is and lives alone, however receives support from her three children. She is a patient of Dr. Morales. Assessment The patient was asleep at change of shift. she got up to breakfast with her peers and then back to lay down. Reports depression / and has a very flat affect. States she is just very "down." confirms that a client service representative of [facility] is coming to interview her today and states, "I'm not going home" and then continued, "but maybe I will like it." States she feels hopeless. Medication compliant and eating well. Passive suicidal thoughts, "I just don't care to live anymore." S/I, H/I: Passive SI A/VH: Denies, none observed Sleep: Naps during day ADL's: Prompting from staff in order to complete ADLs Group attendance: Yes Were meds taken: Yes Any med S/E: tremors of hands and feet MD alejandra aware Mental Status Exam Appearance: Dressed in green scrubs Eye contact: Fair Behavior: Cooperative but guarded, withdrawn, and fatigued Speech: Speech is soft, inaudible at times with delayed response time. Mood: Depressed, Hopeless & Helpless Affect: constricted/flat Thought process: Poverty of thought and blocking Thought Content: Ongoing preoccupation with depressive thoughts and hopelessness Cognition: Pt. is A&O Insight: Poor Judgment: Poor to fair Interventions PRN's used:None Therapeutic interventions: Maintained a safe and therapeutic environment, ensured contract for safety, provided encouragement and positive reenforcement, monitored behaviors and need for intervention, obtained orthostatic V/S and educated on fall precautions, and maintained Q 15 min safety checks. Restraints/seclusion/emergency medication: N/A Justification of Continued Inpatient Treatment: Pt. continues to requires stabilization, medication adjustments, and a safe and supportive environment.
--- NOTE | 2019-03-01 14:57 | NUR ---
DISCHARGE PLANNING: SW received TC from pt's sister, Ada, who reports she is in support of [facility] placement, if pt is accepted. SW received TC from Sharon, Director of [facility], who reports she will be at the facility to interview pt at 17:00hours. Renee Verma, Radiation Oncologist [employer] CUSTOMIZE PAINTER [id number] Supervised by Kd Collier, [id number]
[2019-03-01 19:40] VITALS: BP 119/51
[2019-03-01] MEDS: LORazepam 0.5 MG tablet PO PRN (20:31)
[2019-03-01] MEDS: Melatonin 3mg tablet PO SCH (20:31)
[2019-03-01] MEDS: psyllium seed 3.4 gm packet PO SCH (20:32)
--- NOTE | 2019-03-01 21:22 | NUR ---
Nursing Progress Note: Legal hold: Voluntary Client on voluntary DTS Report received from nurse with use of SBAR: KRISTY Pan Why are they here: Pt presents as depressed with recent suicidal gesture of getting in her car and starting the ignition with the intent to kill herself. She ended up getting out of the car and letting family know and they then brought her to the ER. She presents as hopeless and helpless, downcast expression, speech quiet, and has hx of depression with two previous suicide attempts. Pt. is and lives alone, however receives support from her three children. She is a patient of Dr. Morales. Assessment Patient is in the group room at change of shift having a meeting with the physician and a staff member from [facility]. After her meeting patient goes back to her room and goes immediately back into her bed. She reports depression with no change still and denies SI, but states "I don't want to live like this." She reports still not feeling enjoyment or really anything emotionally. She does say that she is hopeful for placement at [facility] so that she can be closer to home. Patient is complaint with her evening medications and remains in her bed the remainder of the shift. S/I, H/I: Denies SI, but does express not wanting to live in her current situation and emotions. A/VH: Denies Sleep: See sleep assessment ADL's: Prompting from staff in order to complete ADLs Group attendance: Yes Were meds taken: Yes Any med S/E: Tremors of hands and feet bilateral, MD aware Mental Status Exam Appearance: Dressed in green scrubs Eye contact: Fair Behavior: Cooperative but guarded, withdrawn, and fatigued Speech: Speech is soft, inaudible at times with delayed response time. Mood: Depressed, Hopeless & Helpless Affect: Constricted/flat Thought process: Poverty of thought and blocking Thought Content: Ongoing preoccupation with depressive thoughts and hopelessness Cognition: A&O x4 Insight: Poor Judgment: Poor to fair Interventions PRN's used: None Therapeutic interventions: Maintained a safe and therapeutic environment, ensured contract for safety, provided encouragement and positive reenforcement, monitored behaviors and need for intervention, obtained orthostatic V/S and educated on fall precautions, and maintained Q 15 min safety checks. Restraints/seclusion/emergency medication: N/A Justification of Continued Inpatient Treatment: Pt. continues to requires stabilization, medication adjustments, and a safe and supportive environment.
[2019-03-02 07:50] VITALS: BP 119/51
[2019-03-02] MEDS: [UNRECOGNIZED DRUG - OTHER] PO SCH ×4 (08:18→20:28)
[2019-03-02] MEDS: metoprolol tartrate 12.5mg (1/2 tablet) PO SCH ×2 (08:19→20:30)
[2019-03-02] MEDS: losartan 50mg tablet PO SCH (08:19)
[2019-03-02] MEDS: vitamin D (cholecalciferol) 1,000 unit tablet PO SCH ×2 (08:19→20:28)
[2019-03-02] MEDS: pravastatin 40mg tablet PO SCH (08:19)
[2019-03-02] MEDS: aripiprazole 5mg tablet PO SCH (08:20)
--- NOTE | 2019-03-02 15:51 | NUR ---
DISCHARGE DATE PLANNING: URIEL made TC to pt's son, Puneet, to discuss discharge planning to [facility] after being informed pt had been accepted to the facility. URIEL informed Puneet that pt would need to be picked up by noon on Wednesday. Puneet agreed to coordinate transport with his sister, Jud. URIEL informed Puneet that [facility] could provide one letter regarding pt capacity to care for her own financial needs, however the second letter would need to be obtained through Dr. Morales or Dr. Pinto. Renee Verma, [employer] Ax Consultant EGG BREAKING MACHINE OPERATOR [id number] Supervised by Kd Collier, [id number]
--- NOTE | 2019-03-02 15:55 | NUR ---
Nursing Progress Note: AICHA Legal hold: Voluntary Client on voluntary DTS Report received from nurse with use of SBAR: KRISTY Mehta Why are they here: Pt presents as depressed with recent suicidal gesture of getting in her car and starting the ignition with the intent to kill herself. She ended up getting out of the car and letting family know and they then brought her to the ER. She presents as hopeless and helpless, downcast expression, speech quiet, and has hx of depression with two previous suicide attempts. Pt. is and lives alone, however receives support from her three children. She is a patient of Dr. Morales. Assessment What happened this shift: The patient was asleep at change of shift. She was up to breakfast with her peers and napped throughout day. she is expecting to discharge tomorrow to [facility] which is "closer to home." Remains depressed but not suicidal states she is looking forward to discharge. Attends some groups and eating well, med compliant. S/I, H/I: Denies A/VH: Denies, none observed Sleep: Naps during day ADL's: Prompting from staff in order to complete ADLs Group attendance: Yes Were meds taken: Yes Any med S/E: tremors of hands and feet MD alejandra aware Mental Status Exam Appearance: Dressed in green scrubs Eye contact: Fair Behavior: Cooperative but guarded, withdrawn, and fatigued Speech: Speech is soft, inaudible at times with delayed response time. Mood: Depressed Affect: constricted/flat Thought process: Poverty of thought and blocking Thought Content: Ongoing preoccupation with depressive thoughts and hopelessness Cognition: Pt. is A&O Insight: Poor Judgment: Poor to fair Interventions PRN's used:None Therapeutic interventions: Maintained a safe and therapeutic environment, ensured contract for safety, provided encouragement and positive reenforcement, monitored behaviors and need for intervention, obtained orthostatic V/S and educated on fall precautions, and maintained Q 15 min safety checks. Restraints/seclusion/emergency medication: N/A Justification of Continued Inpatient Treatment: Pt. continues to requires stabilization, medication adjustments, and a safe and supportive environment.
[2019-03-02 19:41] VITALS: BP 108/60
[2019-03-02] MEDS: LORazepam 0.5 MG tablet PO PRN (20:28)
[2019-03-02] MEDS: Melatonin 3mg tablet PO SCH (20:29)
[2019-03-02] MEDS: psyllium seed 3.4 gm packet PO SCH (21:07)
--- NOTE | 2019-03-02 22:31 | NUR ---
Legal hold: Voluntary Client on voluntary DTS Report received from nurse with use of SBAR: KRISTY Levy Why are they here: Pt presents as depressed with recent suicidal gesture of getting in her car and starting the ignition with the intent to kill herself. She ended up getting out of the car and letting family know and they then brought her to the ER. She presents as hopeless and helpless, downcast expression, speech quiet, and has hx of depression with two previous suicide attempts. Pt. is and lives alone, however receives support from her three children. She is a patient of Dr. Morales. Assessment What happened this shift: The patient in her room in bed at change of shift and remains there throughout the shift. She reports no real emotion over being accepted to a facility in [facility]. But does express that she is hopeful that the place will be good for her, along with the fact that she is glad to be going to her home area. She is compliant with evening medications and goes to sleep shortly after HS medication administration. S/I, H/I: Denies A/VH: Denies, none observed Sleep: See sleep assessment ADL's: Prompting from staff in order to complete ADLs Group attendance: Yes Were meds taken: Yes Any med S/E: tremors of hands and feet MD alejandra aware Mental Status Exam Appearance: Dressed in green scrubs Eye contact: Fair Behavior: Cooperative but guarded, withdrawn, and fatigued Speech: Speech is soft, inaudible at times with delayed response time. Mood: Depressed Affect: Constricted/flat Thought process: Poverty of thought and blocking Thought Content: Discussed discharge to Assisted living facility Cognition: A&O x4 Insight: Poor Judgment: Poor to fair Interventions PRN's used: Ativan Therapeutic interventions: Maintained a safe and therapeutic environment, ensured contract for safety, provided encouragement and positive reenforcement, monitored behaviors and need for intervention, obtained orthostatic V/S and educated on fall precautions, and maintained Q 15 min safety checks. Restraints/seclusion/emergency medication: N/A Justification of Continued Inpatient Treatment: Pt. continues to requires stabilization, medication adjustments, and a safe and supportive environment.
[2019-03-03] MEDS: losartan 50mg tablet PO SCH (07:44)
[2019-03-03] MEDS: vitamin D (cholecalciferol) 1,000 unit tablet PO SCH ×2 (07:44→20:48)
[2019-03-03] MEDS: aripiprazole 5mg tablet PO SCH (07:44)
[2019-03-03] MEDS: pravastatin 40mg tablet PO SCH (07:45)
[2019-03-03] MEDS: [UNRECOGNIZED DRUG - OTHER] PO SCH ×4 (07:45→20:48)
[2019-03-03] MEDS: metoprolol tartrate 12.5mg (1/2 tablet) PO SCH ×2 (07:45→20:48)
[2019-03-03 07:59] VITALS: BP 128/49
--- NOTE | 2019-03-03 14:43 | NUR ---
Legal hold: Voluntary Client on voluntary DTS Report received from nurse with use of SBAR: KRISTY Barkley Why are they here: Pt presents as depressed with recent suicidal gesture of getting in her car and starting the ignition with the intent to kill herself. She ended up getting out of the car and letting family know and they then brought her to the ER. She presents as hopeless and helpless, downcast expression, speech quiet, and has hx of depression with two previous suicide attempts. Pt. is and lives alone, however receives support from her three children. She is a patient of Dr. Morales. Assessment What happened this shift: Patient was asleep at change of shift. Reports little to no improvement in her depression. Denies SI. Significant tremors noted on all extremities, patient unable to state wether they are getting worse. KARI Clayton, Abilijohn discontinued. Following breakfast ambulated in james then returned to her room to rest. Continues to isolate in her room except for meals and short periods of walking in james. DC plan is for daughter to pick her up by Wednesday at noon and transport to assisted living facility. Required encouragement to ambulate in hallway following lunch. Requested assistance while ambulating as she feels unsteady. S/I, H/I: Denies A/VH: Denies, none observed Sleep: 8.5 ADL's: Prompting from staff in order to complete ADLs Group attendance: No Were meds taken: Yes Any med S/E: tremors of hands and feet MD alejandra aware Abilijohn discontinued Mental Status Exam Appearance: Dressed in green scrubs Eye contact: Fair Behavior: Cooperative but guarded, withdrawn, and fatigued Speech: Speech is soft, inaudible at times with delayed response time. Mood: Depressed Affect: Constricted/flat Thought process: Poverty of thought and blocking Thought Content: wanting to feel better Cognition: A&O x4 Insight: Poor Judgment: Poor to fair Interventions PRN's used: Therapeutic interventions: Maintained a safe and therapeutic environment, ensured contract for safety, provided encouragement and positive reenforcement, monitored behaviors and need for intervention, obtained orthostatic V/S and educated on fall precautions, and maintained Q 15 min safety checks. Restraints/seclusion/emergency medication: N/A Justification of Continued Inpatient Treatment: Pt. continues to requires stabilization, medication adjustments, and a safe and supportive environment.
[2019-03-03 19:00] VITALS: BP 117/47
[2019-03-03] MEDS: psyllium seed 3.4 gm packet PO SCH (20:48)
[2019-03-03] MEDS: Melatonin 3mg tablet PO SCH (20:48)
--- NOTE | 2019-03-03 22:05 | NUR ---
Nursing Progress Note: Legal hold: Voluntary Client on voluntary DTS Report received from nurse with use of SBAR: KRISTY Levy Why are they here: Pt presents as depressed with recent suicidal gesture of getting in her car and starting the ignition with the intent to kill herself. She ended up getting out of the car and letting family know and they then brought her to the ER. She presents as hopeless and helpless, downcast expression, speech quiet, and has hx of depression with two previous suicide attempts. Pt. is and lives alone, however receives support from her three children. She is a patient of Dr. Morales. Assessment What happened this shift: The patient in her room in bed at change of shift and remains there throughout the shift. She reports her day as "Not so good." and then states that she is "Just depressed." She says that she is happy to be leaving "In a way." but is unsure about it as well. She is compliant with HS medications and goes straight back to sleep. S/I, H/I: Denies A/VH: Denies Sleep: See sleep assessment ADL's: Prompting from staff in order to complete ADLs Group attendance: Yes Were meds taken: Yes Any med S/E: Tremors of hands and feet bilateral, MD aware Mental Status Exam Appearance: Dressed in green scrubs Eye contact: Fair Behavior: Cooperative but guarded, withdrawn, and fatigued Speech: Speech is soft, inaudible at times with delayed response time. Mood: Depressed Affect: Constricted/flat Thought process: Poverty of thought and blocking Thought Content: Discussed discharge to Assisted living facility Cognition: A&O x4 Insight: Poor Judgment: Poor to fair Interventions PRN's used: Ativan Therapeutic interventions: Maintained a safe and therapeutic environment, ensured contract for safety, provided encouragement and positive reenforcement, monitored behaviors and need for intervention, obtained orthostatic V/S and educated on fall precautions, and maintained Q 15 min safety checks. Restraints/seclusion/emergency medication: N/A Justification of Continued Inpatient Treatment: Pt. continues to requires stabilization, medication adjustments, and a safe and supportive environment.
[2019-03-04 07:35] VITALS: BP 113/37
[2019-03-04] MEDS: losartan 50mg tablet PO SCH (08:25)
[2019-03-04] MEDS: vitamin D (cholecalciferol) 1,000 unit tablet PO SCH ×2 (08:25→22:23)
[2019-03-04] MEDS: [UNRECOGNIZED DRUG - OTHER] PO SCH ×4 (08:25→22:18)
[2019-03-04] MEDS: metoprolol tartrate 12.5mg (1/2 tablet) PO SCH ×2 (08:25→22:22)
[2019-03-04] MEDS: pravastatin 40mg tablet PO SCH (08:26)
--- NOTE | 2019-03-04 15:14 | NUR ---
Nursing Progress Note: Legal hold: Voluntary Client on voluntary DTS Report received from nurse with use of SBAR: KRISTY Barkley Why are they here: Pt presents as depressed with recent suicidal gesture of getting in her car and starting the ignition with the intent to kill herself. She ended up getting out of the car and letting family know and they then brought her to the ER. She presents as hopeless and helpless, downcast expression, speech quiet, and has hx of depression with two previous suicide attempts. Pt. is and lives alone, however receives support from her three children. She is a patient of Dr. Morales. Assessment What happened this shift: Pt. Sleeping at change of shift, required to be woken up for breakfast, compliant with medications. Requested new batteries for her hearing aids which were provided to her. Returned to bed immediately following breakfast. Ambulated in james with assistance twice throughout the day. While sleeping observed bilateral leg tremors. S/I, H/I: Denies A/VH: Denies Sleep: 8.75 ADL's: Prompting from staff in order to complete ADLs Group attendance: Yes Were meds taken: Yes Any med S/E: Tremors of hands and feet bilateral, MD aware Mental Status Exam Appearance: Dressed in green scrubs Eye contact: Fair Behavior: Cooperative but guarded, withdrawn, and fatigued Speech: Speech is soft, inaudible at times with delayed response time. Mood: Depressed Affect: Constricted/flat Thought process: Poverty of thought and blocking Thought Content: Discussed discharge to Assisted living facility Cognition: A&O x4 Insight: Poor Judgment: Poor to fair Interventions PRN's used: Ativan Therapeutic interventions: Maintained a safe and therapeutic environment, ensured contract for safety, provided encouragement and positive reenforcement, monitored behaviors and need for intervention, obtained orthostatic V/S and educated on fall precautions, and maintained Q 15 min safety checks. Restraints/seclusion/emergency medication: N/A Justification of Continued Inpatient Treatment: Pt. continues to requires stabilization, medication adjustments, and a safe and supportive environment.
[2019-03-04 19:00] VITALS: BP 108/41
[2019-03-04] MEDS: LORazepam 1 MG tablet PO PRN (22:21)
[2019-03-04] MEDS: Melatonin 3mg tablet PO SCH (22:23)
[2019-03-04] MEDS: psyllium seed 3.4 gm packet PO SCH (22:24)
--- NOTE | 2019-03-05 02:32 | NUR ---
Nursing Progress Note: Legal hold: Voluntary Client on voluntary DTS Report received from nurse with use of SBAR: KRISTY Levy Why are they here: Pt presents as depressed with recent suicidal gesture of getting in her car and starting the ignition with the intent to kill herself. She ended up getting out of the car and letting family know and they then brought her to the ER. She presents as hopeless and helpless, downcast expression, speech quiet, and has hx of depression with two previous suicide attempts. Pt. is and lives alone, however receives support from her three children. She is a patient of Dr. Morales. Assessment What happened this shift: Patient is in bed following shift change. Patient is well oriented and soft spoken. She exhibits some occasional trembling to extremities. Patient complains of depression and anxiety. Her primary fear is what is going to happen when discharged? Patient has lived on her own and states she is not prepared to live in a [facility]. Patient states "everything is wrong." Patients affect is flat. She denies S/I or H/I at this time. The patient is advised that she is in a safe place. Patient request medications for anxiety, they will be provided. Normal BM today. Patient still request Metamucil. This patient did ambulate without assistance on the NOC shift. S/I, H/I: Denies A/VH: Denies Sleep: Naps on the early evening shift. ADL's: Prompting from staff in order to complete ADLs Group attendance: Yes Were meds taken: Yes Any med S/E: Tremors of hands and feet bilateral, MD aware Mental Status Exam Appearance: Dressed in green scrubs Eye contact: Fair Behavior: Cooperative but guarded, withdrawn, and fatigued Speech: Speech is soft, inaudible at times with delayed response time. Mood: Depressed Affect: Constricted/flat Thought process: Poverty of thought and blocking Thought Content: Discussed discharge to Assisted living facility Cognition: A&O x4 Insight: Poor Judgment: Poor to fair Interventions PRN's used: Ativan Therapeutic interventions: Maintained a safe and therapeutic environment, ensured contract for safety, provided encouragement and positive reenforcement, monitored behaviors and need for intervention, obtained orthostatic V/S and educated on fall precautions, and maintained Q 15 min safety checks. Restraints/seclusion/emergency medication: N/A Justification of Continued Inpatient Treatment: Pt. continues to requires stabilization, medication adjustments, and a safe and supportive environment.
[2019-03-05 08:00] VITALS: BP 125/48
[2019-03-05] MEDS: [UNRECOGNIZED DRUG - OTHER] PO SCH ×4 (08:24→21:33)
[2019-03-05] MEDS: pravastatin 40mg tablet PO SCH (08:24)
[2019-03-05] MEDS: vitamin D (cholecalciferol) 1,000 unit tablet PO SCH ×2 (08:24→21:25)
[2019-03-05] MEDS: losartan 50mg tablet PO SCH (08:25)
[2019-03-05] MEDS: metoprolol tartrate 12.5mg (1/2 tablet) PO SCH ×2 (08:25→21:26)
[2019-03-05] MEDS: Estradiol 0.025mg/day patch (1 per week) TD SCH (08:49)
--- NOTE | 2019-03-05 10:18 | NUR ---
DISCHARGE PLANNING: URIEL made TC to Puneet @ , to confirm discharge plan/date for pt. Puneet reports his sister, Jud, will provide transportation for pt prior to 12:00 on 03/06/2019. Renee Verma, Counterintelligence/Humint Specialist SECTION GANG WORKER [id number] Supervised by Kd Collier, [id number]
--- NOTE | 2019-03-05 15:14 | NUR ---
Nursing Progress Note: Legal hold: Voluntary Client on voluntary DTS Report received from nurse with use of SBAR: KRISTY Barkley Why are they here: Pt presents as depressed with recent suicidal gesture of getting in her car and starting the ignition with the intent to kill herself. She ended up getting out of the car and letting family know and they then brought her to the ER. She presents as hopeless and helpless, downcast expression, speech quiet, and has hx of depression with two previous suicide attempts. Pt. is and lives alone, however receives support from her three children. She is a patient of Dr. Morales. Assessment What happened this shift: Patient is in bed following shift change. Patient is well oriented and soft spoken. She exhibits constant tremors to lower extremities, less so in the upper extremities. Patient states depression is not so good. Discussed her upcoming discharge tomorrow and she admits to some fear related to the unknown. Shared with her that she will be closer to family and it will be easier for her loved ones to visit on a regular basis. Patients affect is flat. She denies S/I or H/I at this time. The patient is advised that she is in a safe place. Ate breakfast in community room without difficulty. Ambulated in hallway without assistance. Refused lunch, ambulated in james X 2 and returned to bed. Will be discharging tomorrow. S/I, H/I: Denies A/VH: Denies Sleep: 8.75 ADL's: Prompting from staff in order to complete ADLs Group attendance: Yes Were meds taken: Yes Any med S/E: tremors in all extremities, less noticeable in upper extremities Mental Status Exam Appearance: Dressed in green scrubs Eye contact: Fair Behavior: Cooperative but guarded, withdrawn, and fatigued Speech: Speech is soft, inaudible at times with delayed response time. Mood: Depressed Affect: Constricted/flat Thought process: Poverty of thought and blocking Thought Content: Discussed discharge to Assisted living facility Cognition: A&O x4
[2019-03-05 19:57] VITALS: BP 120/49
[2019-03-05] MEDS: Melatonin 3mg tablet PO SCH (21:25)
[2019-03-05] MEDS: psyllium seed 3.4 gm packet PO SCH (21:33)
[2019-03-05] MEDS: LORazepam 1 MG tablet PO PRN (21:33)
--- NOTE | 2019-03-06 01:53 | NUR ---
Nursing Progress Note: Legal hold: Voluntary Client on voluntary DTS Report received from nurse with use of SBAR: KRISTY Bosch Why are they here: Pt presents as depressed with recent suicidal gesture of getting in her car and starting the ignition with the intent to kill herself. She ended up getting out of the car and letting family know and they then brought her to the ER. She presents as hopeless and helpless, downcast expression, speech quiet, and has hx of depression with two previous suicide attempts. Pt. is and lives alone, however receives support from her three children. She is a patient of Dr. Morales. Assessment What happened this shift: Pt in bed asleep at start of shift. Later she was awake but declined to come to Group room for snack. Pt says she is better then when first admitted but still feels depressed and has SI at times. Patient is well oriented and soft spoken. Often there are long paused before pt answers a question. Pt verbalized apprehension about discharge to Assisted living facility. Pt had been living independently in her own home. Pt allowed to talk about her feelings. S/I, H/I: At times A/VH: Denies Sleep: Asleep at this time ADL's: Prompting from staff in order to complete ADLs Group attendance: Yes Were meds taken: Yes Any med S/E: tremors in all extremities, less noticeable in upper extremities Mental Status Exam Appearance: Dressed in green scrubs Eye contact: Fair Behavior: Cooperative but guarded, withdrawn, and fatigued Speech: Speech is soft, inaudible at times with delayed response time. Mood: Depressed Affect: Constricted/flat Thought process: Poverty of thought and blocking Thought Content: Discussed discharge to Assisted living facility Cognition: A&O x4 Interventions PRN's used: Ativan per request Therapeutic interventions: Maintained a safe and therapeutic environment, ensured contract for safety, provided encouragement and positive reenforcement, monitored behaviors and need for intervention, obtained orthostatic V/S and educated on fall precautions, and maintained Q 15 min safety checks. Restraints/seclusion/emergency medication: N/A Justification of Continued Inpatient Treatment: Pt. continues to requires stabilization, medication adjustments, and a safe and supportive environment.
[2019-03-06 07:31] VITALS: BP 126/61
[2019-03-06 08:04] VITALS: BP_SYST 126
[2019-03-06] MEDS: losartan 50mg tablet PO SCH (08:04)
[2019-03-06] MEDS: metoprolol tartrate 12.5mg (1/2 tablet) PO SCH (08:04)
[2019-03-06] MEDS: pravastatin 40mg tablet PO SCH (08:04)
[2019-03-06] MEDS: [UNRECOGNIZED DRUG - OTHER] PO SCH (08:05)
[2019-03-06] MEDS: vitamin D (cholecalciferol) 1,000 unit tablet PO SCH (08:09)
[2019-03-06] MEDS ORDERED: LOSA25TA96 PO (09:27)
[2019-03-06] MEDS ORDERED: CHOL100046 PO (09:27)
[2019-03-06] MEDS ORDERED: PHEN15TA PO (09:27)
[2019-03-06] MEDS ORDERED: ATI0.5T PO (09:27)
[2019-03-06] MEDS ORDERED: METO25TA6 PO (09:27)
[2019-03-06] MEDS ORDERED: PALI1.5T PO (09:27)
[2019-03-06] MEDS ORDERED: MELA3TAB64 PO (09:27)
[2019-03-06] MEDS ORDERED: PRAV40TA3 PO (09:27)
[2019-03-06] MEDS ORDERED: NICO-668 MM (09:27)
[2019-03-06] MEDS ORDERED: ESTR1PAT30 TD (09:27)
--- NOTE | 2019-03-06 10:37 | NUR ---
ISCHARGE NOTE: Patient discharge accompanied by family and PCT via WC. All valuables inventoried and returned to patient. Home medications obtained from the pharmacy and returned to patient. Discharge instructions and all information for follow medical appointments included in discharge package. Remains depressed, verbalizes she is hopeful and happy to be closer to family. No acute physical or emotional issues identified.
[2019-03-07] MEDS ORDERED: PHEN15TA PO (11:27)
== END 2019-03-06 10:15 | disposition home or self-care (01) | DRG 885 ==
LOC: ADULT MH 12:17
PROVIDERS: ADMIT Psychiatry & Neurology Psychiatry; ATTEND Psychiatry & Neurology Psychiatry
DX: F33.3 Major depressive disorder, recurrent, severe with psychotic symptoms (principal); R45.851 Suicidal ideations; E78.5 Hyperlipidemia, unspecified; I10 Essential (primary) hypertension; G47.00 Insomnia, unspecified; F60.9 Personality disorder, unspecified; E11.9 Type 2 diabetes mellitus without complications; G30.9 Alzheimer's disease, unspecified; F02.80 Dementia in other diseases classified elsewhere, unspecified severity, without behavioral disturbance, psychotic disturbance, mood disturbance, and anxiety; F41.9 Anxiety disorder, unspecified; G24.01 Drug induced subacute dyskinesia; I25.10 Atherosclerotic heart disease of native coronary artery without angina pectoris; M19.90 Unspecified osteoarthritis, unspecified site; J45.909 Unspecified asthma, uncomplicated; Z86.73 Personal history of transient ischemic attack (TIA), and cerebral infarction without residual deficits; Z79.899 Other long term (current) drug therapy; Z82.0 Family history of epilepsy and other diseases of the nervous system; Z82.3 Family history of stroke; Z82.5 Family history of asthma and other chronic lower respiratory diseases
CPT/HCPCS: 36415; 80053; 80061; 80305; 81003; 83036; 84484; 85025; 85610; 85730; 87081; 99285